=== PATIENT | male | born 1950 | race Caucasian/White ===

== ENCOUNTER → 2016-04-27 | Outpatient (CLI) | payer MEDICARE ==
[2016-04-27 09:14] LABS: Appearance,Urine Clear (Clear); Bilirubin,Urine Negative (Negative); Glucose,Urine (UA) Negative (Negative); Ketones,Urine Negative (Negative); Leukocyte Esterase,Urine Negative (Negative); Nitrite,Urine Negative (Negative); PH, Urine 5.5 (5.0-8.0); Protein,Urine Trace (Negative); Specific Gravity,Urine 1.015 (1.001-1.035); UA Billing (MACRO vs. MICRO) CHEM; Urobilinogen,Urine <2.0 mg/dL (<2.0)
[2016-04-27 09:15] LABS: CH 30.1; HCT 45.2 % (39.0-53.0); HDW 2.67; HGB 14.7 gm/dL (13.0-17.5); MCH 29.7 pg (25.0-35.0); MCHC 32.5 g/dL (31.0-37.0); MCV 91.6 fL (80.0-100.0); RBC 4.94 m/uL (4.30-5.90); RDW 13.1 % (11.5-15.5); WBC 5.6 k/uL (3.8-10.6)
[2016-04-27 11:12] LABS: Anion Gap 12 mmol/L; Blood Urea Nitrogen 20 mg/dL (9-20); Calcium 8.9 mg/dL (8.4-10.2); Carbon Dioxide 24 mmol/L (22-30); Chloride 107 mmol/L (98-107); Cholesterol 138 mg/dL (<200); Glucose 85 mg/dL (74-99); HDL Cholesterol 52 mg/dL (40-60); Iron 43 ug/dL (49-181); Non-African American GFR(MDRD) 55 (>60 ml/min/1.73 sqM); Phosphorous 2.2 mg/dL (2.5-4.5); Potassium 4.3 mmol/L (3.5-5.1); Sodium 143 mmol/L (137-145); Triglycerides 87 mg/dL (<150)
[2016-04-27 11:21] LABS: % Iron Saturation 13.1 % (20-50); Total Iron Binding Capacity 329 ug/dL (261-462)
== END ==
LOC: LABWHC1 08:40
PROVIDERS: ATTEND Nurse Practitioner Family
DX: N18.3 Chronic kidney disease, stage 3 (moderate) (principal); D64.9 Anemia, unspecified; N39.0 Urinary tract infection, site not specified; E55.9 Vitamin D deficiency, unspecified; E21.3 Hyperparathyroidism, unspecified
CPT/HCPCS: 36415; 80048; 80061; 81003; 82306; 82728; 83540; 83550; 83735; 83970; 84100; 85027

== ENCOUNTER 2016-08-17 08:03 | Day surgery (SDC) | payer MEDICARE ==
[2016-08-12 14:23] VITALS: BMI 25.8
[~2016-08-17 08:03] MED LIST: ALPRAZolam 0.25 MG TAB PO PRN; ASPIRIN 325 MG TAB PO ONE; ATORVASTATIN 80 MG TAB PO STA; SODIUM CHLORIDE 0.9% 1,000 ML IV SCH; SODIUM CHLORIDE 0.9% 1,000 ML in EMPTY BAG 1 BAG IV ONE
[2016-08-17 08:30] VITALS: PULSE 70; TEMP 97.5
[2016-08-17] MEDS ORDERED: diphenhydrAMINE 50 MG/ML 1 ML VIAL IVP ONE (10:00)
[2016-08-17] MEDS ORDERED: MIDAZOLAM 2 MG/2 ML VIAL IVP ONE (10:00)
[2016-08-17] MEDS ORDERED: LIDOCAINE 2% INJ 20 MG/ML SQ ONE (10:03)
[2016-08-17] MEDS: VERAPAMIL SYRINGE (5 MG/10 ML) INTRAARTER ONE ×2 (10:04→10:21)
[2016-08-17] MEDS ORDERED: HEPARIN SODIUM 1,000 UNIT/ML VIAL IV ONE (10:06)
[2016-08-17] MEDS ORDERED: IODIXANOL 320 MG/ML 100 ML INTRAARTER ONE (10:21)
[2016-08-17] MEDS ORDERED: RX INFO: IV CONTRAST WAS GIVEN 1 EACH MISC MISCELLANE PRN (10:36)
[2016-08-17] MEDS ORDERED: SODIUM CHLORIDE 0.9% 1,000 ML IV SCH (10:45)
[2016-08-17 11:48] VITALS: RESP 18
[2016-08-17 18:53] VITALS: BP 134/70
--- NOTE | 2016-08-19 21:33 | PCN ---
DATE OF SERVICE: 08/17/2016 CARDIAC CATHETERIZATION PROCEDURE: Left heart catheterization, coronary angiography. PERFORMED BY: Dr. Heaven Huber CLINICAL INFORMATION: Mr. Fitzpatrick is a 65-year-old gentleman with a history of hypertension, hyperlipidemia who has been having symptoms strongly suggestive of unstable angina. He was initiated on a beta nicholas, aspirin, and he was already on statins. He was brought in for the procedure electively. He had chronic kidney disease with creatinine of nearly 1.6. He was adequately hydrated orally and also with IV here and brought in for the procedure. I explained to him that I may not perform intervention if I need to give him a lot of contrast in one setting. PROCEDURE NOTE: Under local anesthesia and strict aseptic precautions, a 6 British introducer was placed in the right radial artery. Using an Ultimate I catheter, I performed selective coronary angiography, and a pigtail catheter was used to check LV pressures, but I did not perform LV gram. A total of 45 mL of contrast was used. Patient tolerated the procedure well. The sheath was taken out and TR band applied as per protocol, with good hemostasis. The saturation in the fingers of the right hand was 99%. Patient tolerated the procedure well without complications. CARDIAC CATHETERIZATION FINDINGS The left ventricular end-diastolic pressure was 16 mmHg without any gradient across the aortic valve. CORONARY ANGIOGRAPHY FINDINGS RIGHT CORONARY ARTERY: Dominant vessel, has minor irregularities, mild calcification. Distally bifurcates into a large PDA and PLV, both of which supply a sizeable amount of myocardium. There is no significant disease in the dominant RCA, which has mild calcification and 30% to 35% narrowing. LEFT MAIN CORONARY ARTERY: This is a short, patent, disease-free vessel that immediately bifurcates into LAD and circumflex. LEFT ANTERIOR DESCENDING CORONARY ARTERY: Good-caliber vessel. Gives off a first diagonal branch that has a 70% stenosis at the origin. Fair-caliber vessel. Then there is a tortuosity. Gives off a septal branch and a straighter segment, and from the straighter segment a second diagonal comes off which is free of significant disease. After the second diagonal there is a 95% stenosis and then the caliber of the vessel improves. There is a third diagonal and then the vessel extends all the way to the apex. The mid LAD therefore has a 95% calcified stenosis located after a very tortuous segment. There is significant calcification proximal and at the lesion as well. The calcification appears to be moderate to severe. The first diagonal branch has 70% stenosis. Second diagonal and third diagonal are free of significant disease. LEFT POSTERIOR CIRCUMFLEX CORONARY ARTERY: Technically a non-dominant vessel. Gives off a single obtuse marginal branch and a high obtuse marginal branch, both of which have minor irregularities, and there is a small vessel that runs in the AV groove. No significant disease is noted in the circumflex system, which is small in caliber with mild diffuse disease and non-dominant. LEFT VENTRICULOGRAM: This was not performed. FINAL IMPRESSION: This patient has a right-dominant system, heavily calcified, extremely tortuous LAD with a mid lesion of the 95%. Circumflex is small, non- dominant, free of significant disease, and LV and diastolic pressures are acceptable. There was no gradient across the aortic valve. RECOMMENDATION: I am recommending elective intervention of the mid LAD. I will perform an orbital atherectomy and stenting. Rationale, risks, benefits and options were carefully explained to the patient and his . He will be discharged today after adequate hydration, and I will perform this procedure in the next 48 hours from the right femoral approach. Higher risk was quoted, given the fact that there is tortuosity and calcification. Patient and family understand this and wish to proceed with the procedure, which will be performed in the next 48 hours after checking BUN and creatinine. Moderate conscious sedation was provided for a total duration of 20 minutes. Patient was monitored closely. Oxygen saturation was good. He received Versed and Benadryl. The patient tolerated the procedure well, without complications. SANDY
--- NOTE | 2016-08-19 21:40 | MISC ---
LETTER TO DR. ROONEY RE: Emmanuel Fitzpatrick (1950) Dear Dr. Rooney, Thank you for the opportunity to participate in the care of Mr. Emmanuel Fitzpatrick. Please find enclosed my detailed cardiac catheterization report for your records. He has a 95% mid LAD which will be intervened in an elective fashion with orbital atherectomy and stenting in the next couple of days. Rationale, risks, benefits and options were explained to the patient. Thank you for your referral. Please call with questions. Sincerely, Heaven Huber M.D. SANDY
== END 2016-08-17 18:30 | disposition home or self-care (01) ==
LOC: CATHCVL 08:03
PROVIDERS: ATTEND Internal Medicine Interventional Cardiology
DX: I25.110 Atherosclerotic heart disease of native coronary artery with unstable angina pectoris (principal); I25.84 Coronary atherosclerosis due to calcified coronary lesion; I12.9 Hypertensive chronic kidney disease with stage 1 through stage 4 chronic kidney disease, or unspecified chronic kidney disease; N18.9 Chronic kidney disease, unspecified; E78.00 Pure hypercholesterolemia, unspecified; G89.29 Other chronic pain; M54.5 Low back pain; Z79.82 Long term (current) use of aspirin; Z79.899 Other long term (current) drug therapy; Z87.891 Personal history of nicotine dependence
CPT/HCPCS: 93458; 99152; C1769 ×2; C1894; J2001; J2250; J1200; Q9967; J1644

== ENCOUNTER 2016-08-19 07:04 | Inpatient (IN) | payer MEDICARE ==
[~2016-08-19 07:04] MED LIST changes: +ALPRAZolam 0.5 MG TAB PO PRN; -ASPIRIN 325 MG TAB PO ONE; +ASPIRIN 325 MG TAB PO STA; +NITROGLYCERIN SL TABS 0.4 MG TAB SUBLINGUAL PRN; -SODIUM CHLORIDE 0.9% 1,000 ML IV SCH; -SODIUM CHLORIDE 0.9% 1,000 ML in EMPTY BAG 1 BAG IV ONE
[2016-08-19 07:46] LABS: Basophils % (A) 1 %; CH 30.3; CHCM 34.5; Eosinophils # (A) 0.2 k/uL (0-0.7); Eosinophils % (A) 2 %; HCT 45.3 % (39.0-53.0); HDW 2.63; HGB 15.9 gm/dL (13.0-17.5); Luc # (Auto) 0.31; Luc % (Auto) 4; Lymphocytes # (A) 1.4 k/uL (1.0-4.8); Lymphocytes % (A) 19 %; MCH 30.8 pg (25.0-35.0); MCV 88.1 fL (80.0-100.0); Mean Platelet Volume 7.9; Monocytes # (A) 0.5 k/uL (0-1.0); Monocytes % (A) 6 %; Neutrophils # (A) 5.1 k/uL (1.3-7.7); Neutrophils % (A) 68 %; RBC 5.14 m/uL (4.30-5.90); RDW 13.5 % (11.5-15.5); WBC 7.4 k/uL (3.8-10.6); WBC (Perox) 7.44
[2016-08-19 07:56] LABS: Anion Gap 11 mmol/L; Blood Urea Nitrogen 27 mg/dL (9-20); Calcium 9.2 mg/dL (8.4-10.2); Carbon Dioxide 27 mmol/L (22-30); Chloride 106 mmol/L (98-107); Glucose 88 mg/dL (74-99); Non-African American GFR(MDRD) 53 (>60 ml/min/1.73 sqM); Potassium 3.9 mmol/L (3.5-5.1); Sodium 144 mmol/L (137-145)
[2016-08-19] MEDS ORDERED: SODIUM CHLORIDE 0.9% 1,000 ML in EMPTY BAG 1 BAG IV ONE (08:30)
[2016-08-19] MEDS ORDERED: MIDAZOLAM 2 MG/2 ML VIAL ONE (13:02)
[2016-08-19] MEDS ORDERED: diphenhydrAMINE 50 MG/ML 1 ML VIAL ONE (13:02)
[2016-08-19] MEDS ORDERED: LIDOCAINE 2% INJ 20 MG/ML (20 ML MDV) ONE ×2 (13:09→15:27)
[2016-08-19] MEDS ORDERED: diphenhydrAMINE 50 MG/ML 1 ML VIAL IVP ONE (13:10)
[2016-08-19] MEDS: MIDAZOLAM 2 MG/2 ML VIAL IV ONE ×2 (13:10→13:23)
[2016-08-19] MEDS ORDERED: LIDOCAINE 2% INJ 20 MG/ML SQ ONE ×2 (13:15→15:32)
[2016-08-19] MEDS ORDERED: BIVALIRUDIN BOLUS 250 MG/50 ML IV ONE (13:35)
[2016-08-19] MEDS ORDERED: BIVALIRUDIN 250 MG in SODIUM CHLORIDE 0.9% 50 ML IV ONE ×3 (13:35→15:44)
[2016-08-19] MEDS ORDERED: SODIUM CHLORIDE 0.9% 1,000 ML IV ONE (13:46)
[2016-08-19] MEDS ORDERED: HYDROmorphone 2 MG/ML 1 ML SYRINGE ONE (13:56)
[2016-08-19] MEDS: HYDROmorphone 2 MG/ML 1 ML SYRINGE IV ONE ×3 (13:58→15:28)
[2016-08-19] MEDS: NITROGLYCERIN 1000MCG/10ML SYRINGE INTRACORON ONE ×3 (14:14→14:45)
[2016-08-19] MEDS ORDERED: CLOPIDOGREL 75 MG TAB ONE ×2 (15:00)
[2016-08-19] MEDS ORDERED: CLOPIDOGREL 75 MG TAB PO ONE (15:03)
[2016-08-19] MEDS ORDERED: NITROGLYCERIN SL TABS 0.4 MG TAB SUBLINGUAL PRN (15:06)
[2016-08-19] MEDS ORDERED: MAG HYDROX/AL HYDROX/SIMETH 30 ML CUP PO PRN (15:06)
[2016-08-19] MEDS ORDERED: RX INFO: IV CONTRAST WAS GIVEN 1 EACH MISC MISCELLANE PRN (15:06)
[2016-08-19] MEDS ORDERED: ATROPINE SULFATE 0.1 MG/ML 10ML SYRINGE IV PRN (15:06)
[2016-08-19] MEDS ORDERED: IODIXANOL 320 MG/ML 100 ML INTRAARTER ONE ×2 (15:08→16:16)
[2016-08-19] MEDS ORDERED: NITROGLYCERIN 1000MCG/10ML SYRINGE INTRACORON ONE (16:04)
[2016-08-19] MEDS ORDERED: NITROGLYCERIN-D5W PMX 50 MG in DEXTROSE/WATER 1 250ML.BAG IV ONE (16:24)
[2016-08-19 16:42] LABS: Glucose,Whole Blood 107 mg/dL (75-99)
--- NOTE | 2016-08-19 16:45 | P.PCN ---
Date of Procedure: 08/19/16 Preoperative Diagnosis: Stable angina, hypertension, hypercholesterolemia, chronic kidney disease stageII Postoperative Diagnosis: Same Procedure(s) Performed: #1 transvenous temporary pacemaker #2 orbital atherectomy of mid left anterior descending coronary artery #3 PTCA and stenting of mid LAD Leomann highly calcified tortuous complex disease Implants: Anesthesia: other (Moderate conscious sedation was provided with Dilaudid, Versed, Benadryl for a total duration of 1 hour 45 minutes) Indications for Procedure: Operative Findings: Description of Procedure: This gentleman was seen by me recently in the office in about 48 hours ago I performed a coronary angiography from the right radial approach using the least amount of contrast because of his chronic kidney disease and noted that he had a heavily calcified tortuous LAD with a 99% stenosis. I brought in this patient and electively today off her hydrating him orally and checking the creatinine to be same or better than baseline. I explained to the patient and his that this would be a high-risk procedure involving a very calcified tortuous artery and vein were prepared for this. Procedure note: From the right femoral approach under strict aseptic precautions and local anesthesia a 6-Kosovan introducer was placed in the right femoral vein and another 6-Kosovan introducer in the right femoral artery. A transvenous temporary pacemaker was positioned in the right ventricular apex. Threshold was 0.3 mV. This pacemaker was kept as a standby during orbital atherectomy. From the right femoral arterial approach I advanced a 3.5, XB LAD guide catheter to cannulate the left coronary artery. I used initially if this provided to cross the total occlusion in the LAD and this wire ended up in the diagonal branch distally. There was extreme tortuosity and I could not advance the wire into the main LAD. I used a 2.0 track balloon and I exchanged the long wire using this balloon for a Viper wire I then performed orbital atherectomy and did about 4 passes. Patient had chest pain and ST elevation during and after the process. The vessel was transiently totally occluded. I then exchanged the existing Viper wire with the same 2.0 balloon and left a BMW wire distally. Over this wire I advanced the 2.0 balloon and dilated the area of total occlusion with significant improvement and relief of pain. I tried to advance a 15 mm long 2.75 stent but I had considerable difficulty. I then used another whisper wire alongside and this wire was kept in the LAD distally. Using the double wire system I was able to deploy 8 mm long 2.75 caliber Xience stent distally and another 2.75 caliber 8 mm long Xience stent proximally. Good angiographic result was achieved. Patient had resolution of ST segment changes in the anterior leads but 1 and aVL lead continued to show ST elevation suggesting some thrombus may have gone into the diagonal branch that was located just before the diseased segment in the LAD I tried to advance a wire into the diagonal but I had difficulty. I therefore decided to abandon the procedure and accept the diagonal occlusion and went and explained to the patient that if he has more chest pain I would consider intervention. The proximal portion of the stented segment had a hazy area and I had some concern in this regard. Patient was on the table I went and spoke to the family and then he had chest pain and more ST elevation and therefore I went ahead now from the left groin. I had already taken out of the temporary pacemaker in place an Angio-Seal to secure hemostasis in the right groin. I therefore restarted the procedure and from the left femoral approach a 6-Kosovan introducer was placed under strict aseptic precautions and local anesthesia. This time I used a VODA Left 3.5 guide catheter to cannulate the left coronary artery I tried a 4.0 LAD XB without success. The Voda catheter I was able to get ago despite guide support. If this provider was advance the lesion which was total occlusion of the LAD at the site of stenting was crossed wire was kept in the diagonal branch. I then advanced another wire and positioned as this also in the diagonal branch. I made a decision not to pursue dilatation of the diagonal branch that came off just before the stented segment and this diagonal was about 1.5 mm caliber. I made some attempts to advance a wire into this but I decided not to pursue this any more. I advanced and positioned a 2.75 caliber 8 mm Promus stent proximal to the Xience stent that was placed and this stent was placed astride the diagonal branch which was jailed. Excellent angiographic result was achieved of the LAD but the diagonal had somewhat sluggish flow and ST segment elevation in lead 1 and aVL persisted but the ST segment elevation in leads V2 to V4 completely resolved and patient was free of any chest pain. Excellent result of the LAD was achieved the diagonal had somewhat sluggish flow with subtotal occlusion in the ostium. This was explained in great detail to the patient and family. He received 600 mg of Plavix and also Angiomax bolus and infusion as per protocol and the sheath was sutured and he was sent to the intensive care unit in a hemodynamically stable condition and completely free of chest pain Patient will be watched very closely in the ICU. I will pull the sheath in the morning and will consider an nitroglycerin drip through the night as well as a recheck of EKG in a.m. This note will go to his primary care physician
[2016-08-19] MEDS ORDERED: HYDROmorphone 1 MG/ML 1 ML SYRINGE ONE (17:31)
[2016-08-19] MEDS ORDERED: HYDROmorphone 1 MG/ML 1 ML SYRINGE IVP STA (17:36)
[2016-08-19 18:44] VITALS: BMI 24.7
[2016-08-19] MEDS ORDERED: DEXTROSE/WATER 1 500ML.BAG with HEPARIN SODIUM,PORCINE/D5W PMX 25,000 UNIT IV SCH (19:00)
[2016-08-19] MEDS: ATORVASTATIN 80 MG TAB PO SCH (21:37)
[2016-08-19] MEDS: METOPROLOL TARTRATE 12.5 MG TAB PO SCH (21:37)
[2016-08-19] MEDS: HYDROmorphone 1 MG/ML 1 ML SYRINGE IVP PRN (22:01)
[2016-08-19] MEDS: ZOLPIDEM 5 MG TAB PO PRN (22:57)
[2016-08-20 04:26] LABS: Basophils % (A) 0 %; CHCM 35.1; Eosinophils % (A) 0 %; HCT 40.8 % (39.0-53.0); HDW 2.61; HGB 14.2 gm/dL (13.0-17.5); Luc # (Auto) 0.28; Luc % (Auto) 2; Lymphocytes # (A) 0.9 k/uL (1.0-4.8); Lymphocytes % (A) 8 %; MCHC 34.9 g/dL (31.0-37.0); MCV 88.7 fL (80.0-100.0); Mean Platelet Volume 9.1; Monocytes # (A) 0.7 k/uL (0-1.0); Monocytes % (A) 6 %; Neutrophils # (A) 9.5 k/uL (1.3-7.7); Neutrophils % (A) 84 %; RDW 13.9 % (11.5-15.5); WBC 11.3 k/uL (3.8-10.6); WBC (Perox) 10.59
[2016-08-20 04:43] LABS: Anion Gap 11 mmol/L; Blood Urea Nitrogen 19 mg/dL (9-20); Carbon Dioxide 21 mmol/L (22-30); Chloride 108 mmol/L (98-107); Glucose 114 mg/dL (74-99); Non-African American GFR(MDRD) >60 (>60 ml/min/1.73 sqM); Potassium 4.3 mmol/L (3.5-5.1); Sodium 140 mmol/L (137-145)
[2016-08-20] MEDS ORDERED: ATROPINE SULFATE 0.1 MG/ML 10ML SYRINGE ONE (06:06)
[2016-08-20] MEDS: HYDROmorphone 1 MG/ML 1 ML SYRINGE IVP PRN (07:39)
[2016-08-20] MEDS: SODIUM CHLORIDE 0.9% 1,000 ML IV SCH ×2 (08:00→20:05)
[2016-08-20] MEDS: amLODIPine 5 MG TAB PO SCH (08:53)
[2016-08-20] MEDS: METOPROLOL TARTRATE 12.5 MG TAB PO SCH ×2 (08:53→20:05)
[2016-08-20] MEDS: CLOPIDOGREL 75 MG TAB PO SCH (08:53)
[2016-08-20] MEDS: ASPIRIN 81 MG CHEW PO SCH (08:53)
[2016-08-20] MEDS: LOSARTAN 25 MG TAB PO SCH (10:01)
--- NOTE | 2016-08-20 10:38 | ECHOF ---
Referral Reason:assess lv function anterior mi MEASUREMENTS -------- HEIGHT: 152.4 cm WEIGHT: 80.3 kg BP: 122/77 IVSd: 1.2 cm (0.6 - 1.1) LVIDd: 4.8 cm (3.9 - 5.3) LVPWd: 1.2 cm (0.6 - 1.1) IVSs: 1.5 cm LVIDs: 3.2 cm LVPWs: 1.4 cm Ao Diam: 4.1 cm (2.0 - 3.7) AV Cusp: 2.0 cm (1.5 - 2.6) LA Diam: 3.9 cm (2.7 - 3.8) MV EXCURSION: 24.642 mm (> 18.000) MV EF SLOPE: 116 mm/s (70 - 150) EPSS: 1.3 cm MV E Alban: 0.41 m/s MV DecT: 174 ms MV A Alban: 0.66 m/s MV E/A Ratio: 0.62 RAP: 5.00 mmHg RVSP: 13.38 mmHg FINDINGS -------- Sinus rhythm. This was a technically adequate study. There is borderline concentric left ventricular hypertrophy. Overall left ventricular systolic function is moderately impaired with, an EF between 35 - 40 %. Anterseptal Hypokinesis Lateral hypokinesis Septal Hypokinesis Molino Hypokinesis. The right ventricle is normal in size. Normal LA size by volume 22+/-6 ml/m2. The right atrial size is normal. There is mild aortic valve sclerosis. There is no evidence of aortic regurgitation. Mild mitral regurgitation is present. Mild tricuspid regurgitation present. There is no evidence of pulmonary hypertension. The right ventricular systolic pressure, as measured by Doppler, is 13.38mmHg. There is no pulmonic regurgitation present. CONCLUSIONS -------- 1. There is borderline concentric left ventricular hypertrophy. 2. There is no evidence of pulmonary hypertension. 3. The right ventricular systolic pressure, as measured by Doppler, is 13.38mmHg. 4. There is no pulmonic regurgitation present. 5. Overall left ventricular systolic function is moderately impaired with, an EF between 35 - 40 %. 6. Anterseptal Hypokinesis 7. Lateral hypokinesis 8. Septal Hypokinesis 9. Molino Hypokinesis. 10. There is mild aortic valve sclerosis. 11. Mild mitral regurgitation is present. 12. Mild tricuspid regurgitation present. RETAIL SUPPORT SPECIALIST: Rebecca Solano RDCS
[2016-08-20] MEDS ORDERED: BISACODYL 5 MG TABLET.DR PO PRN (13:16)
[2016-08-20] MEDS: DOCUSATE 100 MG CAP PO PRN (14:00)
[2016-08-20] MEDS: ATORVASTATIN 80 MG TAB PO SCH (20:05)
[2016-08-20] MEDS: ZOLPIDEM 5 MG TAB PO PRN (20:07)
[2016-08-21 08:15] LABS: Anion Gap 8 mmol/L; Blood Urea Nitrogen 18 mg/dL (9-20); Calcium 9.2 mg/dL (8.4-10.2); Carbon Dioxide 23 mmol/L (22-30); Chloride 109 mmol/L (98-107); Glucose 97 mg/dL (74-99); Non-African American GFR(MDRD) >60 (>60 ml/min/1.73 sqM); Potassium 4.2 mmol/L (3.5-5.1); Sodium 140 mmol/L (137-145)
[2016-08-21] MEDS: METOPROLOL TARTRATE 12.5 MG TAB PO SCH ×2 (09:16→21:14)
[2016-08-21] MEDS: DOCUSATE 100 MG CAP PO PRN (09:16)
[2016-08-21] MEDS: CLOPIDOGREL 75 MG TAB PO SCH (09:17)
[2016-08-21] MEDS: ASPIRIN 81 MG CHEW PO SCH (09:17)
--- NOTE | 2016-08-21 10:02 | P.PN ---
Subjective Principal diagnosis: Coronary artery disease, status post stent placement This patient came to have stent placement of the LAD. Patient apparently had issues with total closure, and requiring restenting of the LAD. Patient has been in ICU since the procedure. The sheath was removed yesterday. Today he is feeling better. His lab values showed elevated troponin values. Echo cardiogram showed wall motion abnormalities seen to involve the anterolateral, apical and lateral taylor. Ejection fraction is estimated is 35-40%. Patient is being transferred to telemetry unit. If patient is stable will be discharged home tomorrow. Vital signs are otherwise stable Objective - Vital Signs Vital signs: Vital Signs Temp 98.3 F 08/21/16 08:00 Pulse 83 08/21/16 08:00 Resp 14 08/21/16 08:00 BP 110/70 08/21/16 08:00 Pulse Ox 100 08/21/16 08:00 Intake & Output 08/20/16 08/21/16 08/21/16 18:59 06:59 18:59 Intake Total 1390 600 300 Output Total 700 600 Balance 690 0 300 Weight 79 kg Intake: IV 850 600 Sodium Chloride 0.9% 1, 850 600 000 ml In Empty Bag 1 bag @ 100 mls/hr IV .Q10H ONE Rx#:[id number] Oral 540 300 Output: Urine 700 600 Other: Voiding Method Urinal Urinal Urinal # Voids 1 0 ABP, PAP, CO, CI - Last Documented Arterial Blood Pressure 148/71 - Exam GENERAL EXAM: Patient is alert and oriented and doesn't appear to be in any acute distress HEENT: Normocephalic. Normal reaction of pupils, equal size, normal range of extraocular motion. No erythema or exudates in the throat. NECK: No masses, no nuchal rigidity. CHEST: No chest wall deformity. LUNGS: Equal air entry with no crackles or wheeze. HEART: S1 and S2 normal with no audible mumurs or gallops. Regular rhythm, femorals equal on both sides.. ABDOMEN: No hepatosplenomegaly, normal bowel sounds, no guarding or rigidity. SKIN: No rashes CENTRAL NERVOUS SYSTEM: No focal deficits. EXTREMITIES: No cyanosis, clubbing or edema. - Labs CBC & Chem 7: 08/20/16 04:15 08/21/16 07:36 Labs: Abnormal Lab Results - Last 24 Hours (Table) 08/20/16 08/20/16 08/21/16 Range/Units 11:12 18:14 07:36 Chloride 109 H (98-107) mmol/L Troponin I 27.700 H* 19.500 H* (0.000-0.034) ng/mL Assessment and Plan (1) Status post coronary artery stent placement Status: Acute (2) CAD (coronary artery disease) Status: Acute (3) Hypertension Status: Acute Plan: Patient is clinically stable. It appears that patient had ischemic injury in the LAD distribution and echo Cardigan showed hypokinesis of the anteroapical segments and lateral wall. Patient is clinically feeling better today. Hopefully, the hypokinesis of the anterolateral could be transient. Patient's activities to be increased. If stable he'll be discharged home tomorrow
[2016-08-21] MEDS: LOSARTAN 25 MG TAB PO SCH (10:20)
[2016-08-21] MEDS: amLODIPine 5 MG TAB PO SCH ×2 (10:40→21:14)
[2016-08-21] MEDS: ATORVASTATIN 80 MG TAB PO SCH (21:13)
[2016-08-22] MEDS: CLOPIDOGREL 75 MG TAB PO SCH (07:41)
[2016-08-22] MEDS: ASPIRIN 81 MG CHEW PO SCH (07:41)
[2016-08-22] MEDS: LOSARTAN 25 MG TAB PO SCH (07:41)
[2016-08-22] MEDS: METOPROLOL TARTRATE 12.5 MG TAB PO SCH (07:41)
[2016-08-22 07:49] VITALS: BP 109/66; PULSE 72; RESP 16; TEMP 97
--- NOTE | 2016-08-22 08:13 | P.DS ---
Providers Date of admission: 08/19/16 14:58 Expected date of discharge: 08/22/16 Attending physician: Felix Huber Consults: 08/19/16 15:06 Consult Physician Routine Consulting Provider: [facility] Consult Reason/Comments: Post Interventional patient Do you want consulting provider notified?: Already Contacted Primary care physician: Stated None Hospital Course: Procedures performed: Transvenous temporary pacemaker placement from the right femoral approach, orbital atherectomy off mid LAD heavily calcified lesion, stenting of mid LAD. Luting stent site used. Approach I performed a repeat angiography and then deployed a additional stent proximal to the previous stents. This procedure was performed immediately after the initial procedure before he was taken off the table This gentleman was brought in for the procedure electively. He has unstable angina and had a prior cardiac cath which revealed a heavily calcified lesion in mid LAD with extreme tortuosity. He has noncritical disease in other vessels. He was brought in for the procedure electively to perform a orbital atherectomy. This procedure was performed on the . Procedure was complicated by a periprocedural myocardial infarction however eventual result was excellent. 2 stents were deployed initially and after that before he could be taken off the table he had chest pain and ST elevation and an additional stent was then deployed proximally. All 3 were drug-eluting stents. Postprocedure course was uneventful. There is a elevation of troponin of up to 28 noted suggestive periprocedural myocardial infarction with some wall motion abnormality and ejection fraction of 40% on echocardiogram. These events were explained in great detail to the patient and family. At the time of discharge he is ambulating without symptoms hand that his EKG suggests the anterior non- ST elevation IA. Discharge medications were reviewed with the patient and his . Instructions regarding activity diet and medications and appointment with me on August 26 at 8:45 AM that also explained and discussed. Physical examination today revealed a blood pressure of 118/70 pulse rate is about 64/m S1 and S2 are heard normally short systolic murmur at left sternal border lungs were clear abdomen is soft and nontender both groins are clean and dry with good pulses Central nervous system is normal. Patient had a mildly elevated creatinine when he came in but yesterday his creatinine was 1.1 which was an improvement. He will be discharged today and I will see him in the office on August 26. Plan - Discharge Summary New Discharge Prescriptions: New Aspirin 81 mg PO DAILY #90 Calcitriol [Rocaltrol] 0.25 mcg PO [place] cap Clopidogrel [Plavix] 75 mg PO DAILY #90 tab Losartan [Cozaar] 25 mg PO DAILY #90 tab Nitroglycerin Sl Tabs [Nitrostat] 0.4 mg SUBLINGUAL Q5M PRN #25 tab PRN Reason: Chest Pain Nitroglycerin Sl Tabs [Nitrostat] 0.4 mg SUBLINGUAL Q5M PRN tab PRN Reason: Chest Pain Continue Atorvastatin [Lipitor] 80 mg PO DAILY Turmeric Root Extract [Turmeric] 500 mg PO DAILY Aspirin 81 mg PO DAILY Metoprolol Tartrate [Lopressor] 12.5 mg PO BID Changed amLODIPine [Norvasc] 2.5 mg PO DAILY #0 Discontinued Calcitriol [Rocaltrol] 0.25 mcg PO [place] Discharge Medication List Atorvastatin [Lipitor] 80 mg PO DAILY 05/17/16 [History] Turmeric Root Extract [Turmeric] 500 mg PO DAILY 05/17/16 [History] Aspirin 81 mg PO DAILY 08/12/16 [History] Metoprolol Tartrate [Lopressor] 12.5 mg PO BID 08/19/16 [History] Aspirin 81 mg PO DAILY #90 08/22/16 [Rx] Calcitriol [Rocaltrol] 0.25 mcg PO [place] cap 08/22/16 [Rx] Clopidogrel [Plavix] 75 mg PO DAILY #90 tab 08/22/16 [Rx] Losartan [Cozaar] 25 mg PO DAILY #90 tab 08/22/16 [Rx] Nitroglycerin Sl Tabs [Nitrostat] 0.4 mg SUBLINGUAL Q5M PRN tab 08/22/16 [Rx] Nitroglycerin Sl Tabs [Nitrostat] 0.4 mg SUBLINGUAL Q5M PRN #25 tab 08/22/16 [Rx ] amLODIPine [Norvasc] 2.5 mg PO DAILY #0 08/22/16 [Rx] Follow up Appointment(s)/Referral(s): Felix Huber MD [STAFF PHYSICIAN] - 08/26/16 8:45 am Patient Instructions/Handouts: Coronary Artery Disease (DC), Cardiac Rehabilitation (DC), Heart Catheterization (DC), After Radial Heart Catheterization (GEN)
[2016-08-22] MEDS ORDERED: CALCITRIOL 0.25 MCG CAP PO SCH (09:00)
--- NOTE | 2016-08-22 11:46 | PN ---
This is a 65 year old gentleman who was brought in for elective complex PCI of LAD that was complicated by very procedural infarct yesterday with a transient occlusion of LAD and then subtotal occlusion of a very small diagonal branch. Post procedure, he was hemodynamically stable, had a transient episode of chest pain yesterday but this morning, EKG anteriorly it looked normal but there are some ST elevations in the inferior leads. He is hemodynamically stable with blood pressure 130/80. Pulse rate is about 70 per minute. He is resting comfortably, has no chest pain, complains of back pain since he is on his back. His sheath has been pulled this morning. I am recommending that we keep the FEMSTOP until 9:15 and then we can increase activity after that. I will obtain echocardiogram, add a very small dose of Losartan. His BUN and creatinine is good. His troponin is elevated consistent with periprocedural [place]. Physical examination revealed no JVD. S1, S2 heard normally. Lungs are clear. Abdomen is soft, nontender. Right groin is clean and dry. Left groin has a FEMSTOP on. Lower extremities revealed palpable pulses. Central nervous system is normal. I am recommending that we continue current medications with the addition of Losartan, check echocardiogram and after 9:15 have him sit up in the chair. Prognosis remains guarded. I will reevaluate him and make further recommendations later on today and I discussed my thoughts in detail with the patient and his . SANDY
== END 2016-08-22 09:14 | disposition home or self-care (01) | DRG 246 ==
LOC: CATHCVL 07:04 → 6ICU 14:58 → 6SEL 08-21 11:30
PROVIDERS: ADMIT Internal Medicine Interventional Cardiology; ATTEND Internal Medicine Interventional Cardiology
PROC: X2C0361 Extirpation of Matter from Coronary Artery, One Artery using Orbital Atherectomy Technology, Percutaneous Approach, New Technology Group 1 (ICD-10-PCS; 2016-08-19)
PROC: 027035Z Dilation of Coronary Artery, One Artery with Two Drug-eluting Intraluminal Devices, Percutaneous Approach (ICD-10-PCS; principal; 2016-08-19 12:30)
DX: I25.110 Atherosclerotic heart disease of native coronary artery with unstable angina pectoris (principal); I21.3 ST elevation (STEMI) myocardial infarction of unspecified site; I97.88 Other intraoperative complications of the circulatory system, not elsewhere classified; I12.9 Hypertensive chronic kidney disease with stage 1 through stage 4 chronic kidney disease, or unspecified chronic kidney disease; E78.00 Pure hypercholesterolemia, unspecified; R01.1 Cardiac murmur, unspecified; N18.2 Chronic kidney disease, stage 2 (mild); G89.29 Other chronic pain; M54.5 Low back pain; M51.37 Other intervertebral disc degeneration, lumbosacral region; Z79.82 Long term (current) use of aspirin; Z79.899 Other long term (current) drug therapy; Z87.891 Personal history of nicotine dependence; Y83.8 Other surgical procedures as the cause of abnormal reaction of the patient, or of later complication, without mention of misadventure at the time of the procedure; Y92.239 Unspecified place in hospital as the place of occurrence of the external cause
CPT/HCPCS: 80048; 84484; 85025; 85730; 93306

== ENCOUNTER → 2016-09-16 | Outpatient (CLI) | payer MEDICARE ==
[2016-09-16 11:16] LABS: CH 30.4; HCT 42.3 % (39.0-53.0); HDW 2.79; HGB 14.7 gm/dL (13.0-17.5); MCH 31.2 pg (25.0-35.0); MCHC 34.8 g/dL (31.0-37.0); MCV 89.8 fL (80.0-100.0); Mean Platelet Volume 8.2; RBC 4.71 m/uL (4.30-5.90); RDW 13.4 % (11.5-15.5); WBC 5.9 k/uL (3.8-10.6)
[2016-09-16 11:26] LABS: Calcium 9.5 mg/dL (8.4-10.2); Potassium 4.6 mmol/L (3.5-5.1)
== END | disposition home or self-care (01) ==
LOC: LABWHC1 10:11
PROVIDERS: ATTEND Internal Medicine Interventional Cardiology
DX: I25.10 Atherosclerotic heart disease of native coronary artery without angina pectoris (principal); I10 Essential (primary) hypertension
CPT/HCPCS: 36415; 80048; 85027

== ENCOUNTER → 2016-10-26 | Outpatient (CLI) | payer MEDICARE ==
[2016-10-26 09:46] LABS: CH 30.7; HCT 46.6 % (39.0-53.0); HDW 2.73; MCHC 34.2 g/dL (31.0-37.0); MCV 90.8 fL (80.0-100.0); Mean Platelet Volume 8.9; RBC 5.14 m/uL (4.30-5.90); RDW 13.1 % (11.5-15.5); WBC 5.6 k/uL (3.8-10.6)
[2016-10-26 09:50] LABS: Appearance,Urine Clear (Clear); Bilirubin,Urine Negative (Negative); Glucose,Urine (UA) Negative (Negative); Ketones,Urine Negative (Negative); Leukocyte Esterase,Urine Negative (Negative); Nitrite,Urine Negative (Negative); Protein,Urine Negative (Negative); Specific Gravity,Urine 1.015 (1.001-1.035); UA Billing (MACRO vs. MICRO) CHEM; Urobilinogen,Urine <2.0 mg/dL (<2.0)
[2016-10-26 10:32] LABS: Anion Gap 9 mmol/L; Blood Urea Nitrogen 26 mg/dL (9-20); Calcium 9.6 mg/dL (8.4-10.2); Carbon Dioxide 28 mmol/L (22-30); Chloride 105 mmol/L (98-107); Cholesterol 166 mg/dL (<200); Glucose 89 mg/dL (74-99); HDL Cholesterol 48 mg/dL (40-60); Iron 80 ug/dL (49-181); Non-African American GFR(MDRD) 51 (>60 ml/min/1.73 sqM); Potassium 4.4 mmol/L (3.5-5.1); Sodium 142 mmol/L (137-145)
[2016-10-26 10:41] LABS: % Iron Saturation 31.6 % (20-50); Total Iron Binding Capacity 253 ug/dL (261-462)
== END | disposition home or self-care (01) ==
LOC: LABWHC1 08:55
PROVIDERS: ATTEND Nurse Practitioner Family
DX: N18.3 Chronic kidney disease, stage 3 (moderate) (principal); D64.9 Anemia, unspecified; N39.0 Urinary tract infection, site not specified; E55.9 Vitamin D deficiency, unspecified; E21.3 Hyperparathyroidism, unspecified; E78.6 Lipoprotein deficiency
CPT/HCPCS: 36415; 80048; 80061; 81003; 82306; 82728; 83540; 83550; 83735; 83970; 84100; 85027

== ENCOUNTER 2016-11-13 02:47 | Inpatient (IN) | payer MEDICARE ==
[2016-11-13] MEDS ORDERED: ASPIRIN 81 MG PO STA (03:04)
[2016-11-13] MEDS ORDERED: NITROGLYCERIN SL TABS 0.4 MG TAB SUBLINGUAL STA (03:04)
--- NOTE | 2016-11-13 03:08 | ED ---
Chest Pain HPI - General Chief Complaint: Chest Pain Stated Complaint: Chest Pain Time Seen by Provider: 11/13/16 02:55 Source: patient Mode of arrival: ambulatory Limitations: no limitations - History of Present Illness Initial Comments: This patient is 65-year-old man who states that around 1 this morning he he had the onset of substernal chest pain that he is describing as heavy feeling, made worse if he takes a deep breath. MD Complaint: chest pain Onset/Timin -: hour(s) Onset: during rest Pain Location: substernal Pain Radiation: none Severity: moderate Quality: heaviness Consistency: constant Improves With: nothing Worsens With: inspiration Treatments Prior to Arrival: none - Related Data Home Medications Medication Instructions Recorded Confirmed Atorvastatin [Lipitor] 80 mg PO DAILY 05/17/16 08/19/16 Turmeric Root Extract [Turmeric] 500 mg PO DAILY 05/17/16 08/19/16 Metoprolol Tartrate [Lopressor] 12.5 mg PO BID 08/19/16 08/19/16 Previous Rx's Medication Instructions Recorded Aspirin 81 mg PO DAILY #90 08/22/16 Calcitriol [Rocaltrol] 0.25 mcg PO KILGORE cap 08/22/16 Clopidogrel [Plavix] 75 mg PO DAILY #90 tab 08/22/16 Nitroglycerin Sl Tabs [Nitrostat] 0.4 mg SUBLINGUAL Q5M PRN tab 08/22/16 amLODIPine [Norvasc] 2.5 mg PO DAILY #0 08/22/16 Allergies Allergy/AdvReac Type Severity Reaction Status Date / Time No Known Allergies Allergy Verified 08/19/16 07:16 Review of Systems ROS Statement: Those systems with pertinent positive or pertinent negative responses have been documented in the HPI. ROS Other: All systems not noted in ROS Statement are negative. Constitutional: Denies: fever, chills Respiratory: Denies: cough, dyspnea Cardiovascular: Reports: chest pain. Denies: palpitations, orthopnea, edema, syncope Gastrointestinal: Denies: abdominal pain, vomiting, diarrhea Genitourinary: Denies: dysuria, hematuria Musculoskeletal: Denies: back pain Skin: Denies: rash Neurological: Denies: headache, weakness, numbness EKG Findings - EKG Comments: EKG Findings:: There are T inversions laterally concerning for possible ischemia. - EKG Results: EKG: interpreted by ERMD, sinus rhythm (Rate 64 bpm), normal axis, normal QRS - Blocks, Cerrillos, Hypertrophy, ST Abn: Repolarization changes or abnormalities: ST or T wave suggestive of ischemia ( Lateral leads) Past Medical History Past Medical History: Coronary Artery Disease (CAD), Chest Pain / Angina, Hyperlipidemia, Hypertension, Osteoarthritis (OA), Renal Disease Additional Past Medical History / Comment(s): decreased kidney function, recent SOB w/exertion History of Any Multi-Drug Resistant Organisms: None Reported Past Surgical History: Heart Catheterization, Hernia Repair, Orthopedic Surgery , Prostate Surgery Additional Past Surgical History / Comment(s): Abel rotator cuff, abel varicose vein stripping, TURP. CARDIAC CATH 08/17/16 Past Anesthesia/Blood Transfusion Reactions: No Reported Reaction Past Psychological History: No Psychological Hx Reported Smoking Status: Former smoker - Past Family History Mother Family Medical History: Cancer Father Family Medical History: Cancer General Exam Limitations: no limitations Course Vital Signs 11/13/16 02:48 Temperature 97.7 F Pulse Rate 63 Respiratory 18 Rate Blood Pressure 136/77 O2 Sat by Pulse 99 Oximetry Disposition Referrals: Dale Rooney DO [Primary Care Provider] - 1-2 days
[2016-11-13 03:21] LABS: Basophils % (A) 0 %; CH 30.8; CHCM 33.5; Eosinophils # (A) 0.9 k/uL (0-0.7); Eosinophils % (A) 10 %; HCT 47.5 % (39.0-53.0); HDW 2.55; HGB 15.7 gm/dL (13.0-17.5); Luc # (Auto) 0.35; Luc % (Auto) 4; Lymphocytes # (A) 1.3 k/uL (1.0-4.8); Lymphocytes % (A) 14 %; MCH 30.6 pg (25.0-35.0); MCV 92.6 fL (80.0-100.0); Mean Platelet Volume 8.3; Monocytes # (A) 0.6 k/uL (0-1.0); Monocytes % (A) 7 %; Neutrophils # (A) 5.8 k/uL (1.3-7.7); Neutrophils % (A) 65 %; RBC 5.13 m/uL (4.30-5.90); WBC 8.9 k/uL (3.8-10.6)
[2016-11-13 03:31] LABS: Partial Thromboplastin Time 25.3 sec (22.0-30.0); Prothrombin Time 10.6 sec (9.0-12.0)
[2016-11-13 03:32] LABS: Calcium 9.4 mg/dL (8.4-10.2); Magnesium 1.9 mg/dL (1.6-2.3); Potassium 3.9 mmol/L (3.5-5.1); Total Bilirubin 0.4 mg/dL (0.2-1.3); Total Protein 6.8 g/dL (6.3-8.2)
[2016-11-13 03:45] LABS: Creatine Kinase 149 U/L (55-170)
[2016-11-13 03:59] LABS: Creatine Kinase MB 1.8 ng/mL (0.0-2.4); Troponin I <0.012 ng/mL (0.000-0.034)
--- NOTE | 2016-11-13 04:42 | XR ---
INDICATION: Chest pain COMPARISON: CXR 10/20/15 FINDINGS: Single frontal view demonstrates a normal cardiomediastinal silhouette. The lungs are clear. No pleural the effusion or pneumothorax. The visualized osseous structures are within normal limits. IMPRESSION: No acute cardiopulmonary disease.
[2016-11-13] MEDS ORDERED: NITROGLYCERIN SL TABS 0.4 MG TAB SUBLINGUAL PRN (05:30)
[2016-11-13] MEDS ORDERED: HEPARIN SODIUM,PORCINE 5,000 UNIT/ML 1 ML VIAL IV ONE (05:30)
[2016-11-13] MEDS: HEPARIN SODIUM,PORCINE/D5W PMX 25,000 UNIT in DEXTROSE/WATER 1 500ML.BAG IV SCH (05:48)
[2016-11-13] MEDS: SODIUM CHLORIDE 0.9% 1,000 ML IV SCH ×2 (05:48→17:48)
[2016-11-13 06:27] VITALS: BMI 23.6
[2016-11-13 09:00] LABS: Creatine Kinase MB 1.6 ng/mL (0.0-2.4); Troponin I 0.016 ng/mL (0.000-0.034)
[2016-11-13] MEDS ORDERED: ASPIRIN 81 MG PO SCH (09:00)
--- NOTE | 2016-11-13 12:27 | P.CRDCN ---
History of Present Illness Consult date: 11/13/16 Chief complaint: Chest discomfort History of present illness: This is a pleasant 65-year-old gentleman who sees Dr. MATTIE Huber in the office on regular basis who underwent in July 2016 successful atherectomy and stenting of the mid LAD, known hypertension, dyslipidemia, presented to the hospital complaining of chest discomfort. The patient was in his usual state of health until about a week ago when he started noticing declining in his energy as well as exertional dyspnea. Over the last 48 hours he has been experiencing chest discomfort for. He described it as a dull kind of discomfort in the mid of the chest without any radiation. He states that the discomfort is a bit different from what he experienced before his angioplasty and stenting. He underwent 2 sets of cardiac enzymes came in to be unremarkable. The EKG showed sinus rhythm with ST changes in the anterior leads. The third set of cardiac enzymes would be to this early afternoon. The patient continues to be pain-free during his hospitalization. Past Medical History Past Medical History: Coronary Artery Disease (CAD), Chest Pain / Angina, Hyperlipidemia, Hypertension, Osteoarthritis (OA), Renal Disease Additional Past Medical History / Comment(s): decreased kidney function, recent SOB w/exertion History of Any Multi-Drug Resistant Organisms: None Reported Past Surgical History: Heart Catheterization, Heart Catheterization With Stent, Hernia Repair, Orthopedic Surgery, Prostate Surgery Additional Past Surgical History / Comment(s): Abel rotator cuff, abel varicose vein stripping, TURP. CARDIAC CATH 08/17/16 Past Anesthesia/Blood Transfusion Reactions: No Reported Reaction Date of Last Stent Placement:: Past Psychological History: No Psychological Hx Reported Smoking Status: Former smoker Past Alcohol Use History: Occasional Past Drug Use History: None Reported - Past Family History Mother Family Medical History: Cancer Additional Family Medical History / Comment(s): Colon CA Father Family Medical History: Cancer Additional Family Medical History / Comment(s): Stomach CA Medications and Allergies Home Medications Medication Instructions Recorded Confirmed Type Atorvastatin [Lipitor] 80 mg PO DAILY 05/17/16 11/13/16 History Turmeric Root Extract [Turmeric] 500 mg PO DAILY 05/17/16 11/13/16 History Metoprolol Tartrate [Lopressor] 12.5 mg PO BID 08/19/16 11/13/16 History Aspirin 81 mg PO DAILY #90 08/22/16 11/13/16 Rx Calcitriol [Rocaltrol] 0.25 mcg PO RAMIREZ cap 08/22/16 11/13/16 Rx Clopidogrel [Plavix] 75 mg PO DAILY #90 tab 08/22/16 11/13/16 Rx Nitroglycerin Sl Tabs [Nitrostat] 0.4 mg SUBLINGUAL Q5M PRN tab 08/22/16 Rx amLODIPine [Norvasc] 2.5 mg PO HS 11/13/16 11/13/16 History Allergies Allergy/AdvReac Type Severity Reaction Status Date / Time losartan AdvReac Rash/Hives Verified 11/13/16 11:20 Physical Exam Vitals: Vital Signs Temp Pulse Pulse Resp BP BP Pulse Ox 11/13/16 12:00 98.1 F 59 L 16 104/72 97 11/13/16 06:45 98.1 F 57 L 18 121/69 99 11/13/16 06:40 16 11/13/16 05:53 65 16 103/72 99 11/13/16 05:00 60 17 101/68 99 11/13/16 03:48 66 16 116/78 100 11/13/16 02:48 97.7 F 63 18 136/77 99 Intake and Output 11/12/16 11/13/16 11/13/16 22:59 06:59 14:59 Other: Weight 74.84 kg - Constitutional General appearance: no acute distress - Respiratory Respiratory: bilateral: CTA - Cardiovascular Rhythm: regular Heart sounds: normal: S1, S2 Results 11/13/16 03:02 11/13/16 03:02 Cardiac Enzymes 11/13/16 11/13/16 11/13/16 Range/Units 03:02 03:02 06:43 AST 28 (17-59) U/L CK-MB (CK-2) 1.8 1.6 (0.0-2.4) ng/mL Troponin I <0.012 0.016 (0.000-0.034) ng/mL Coagulation 11/13/16 Range/Units 03:02 PT 10.6 (9.0-12.0) sec APTT 25.3 (22.0-30.0) sec CBC 11/13/16 Range/Units 03:02 WBC 8.9 (3.8-10.6) k/uL RBC 5.13 (4.30-5.90) m/uL Hgb 15.7 (13.0-17.5) gm/dL Hct 47.5 (39.0-53.0) % Plt Count 184 (150-450) k/uL Comprehensive Metabolic Panel 11/13/16 Range/Units 03:02 Sodium 139 (137-145) mmol/L Potassium 3.9 (3.5-5.1) mmol/L Chloride 107 (98-107) mmol/L Carbon Dioxide 23 (22-30) mmol/L BUN 30 H (9-20) mg/dL Creatinine 1.50 H (0.66-1.25) mg/dL Glucose 92 (74-99) mg/dL Calcium 9.4 (8.4-10.2) mg/dL AST 28 (17-59) U/L ALT 36 (21-72) U/L Alkaline Phosphatase 57 (38-126) U/L Total Protein 6.8 (6.3-8.2) g/dL Albumin 3.9 (3.5-5.0) g/dL Current Medications Generic Name Dose Route Start Last Admin Trade Name Freq PRN Reason Stop Dose Admin Amlodipine Besylate 2.5 mg 11/13/16 09:00 Norvasc PO DAILY [facility] Aspirin 325 mg 11/14/16 09:00 Aspirin PO DAILY [facility] Atorvastatin Calcium 80 mg 11/13/16 09:00 Lipitor PO DAILY [facility] Calcitriol 0.25 mcg 11/14/16 09:00 Rocaltrol PO Ramirez@0900 [facility] Clopidogrel Bisulfate 75 mg 11/13/16 09:00 Plavix PO DAILY [facility] Heparin Sodium/Dextrose 25,000 500 mls @ 17.96 mls/hr 11/13/16 05:30 05:48 unit/ IV Solution IV 12 units/kg/hr .Q24H [facility] 17.96 mls/hr Protocol Administration 12 UNITS/KG/HR Sodium Chloride 1,000 mls @ 100 mls/hr 11/13/16 05:30 11/13/16 05:48 Saline 0.9% IV 100 mls/hr .Q10H [facility] Administration Metoprolol Tartrate 12.5 mg 11/13/16 09:00 Lopressor PO BID [facility] Nitroglycerin 0.4 mg 11/13/16 05:30 Nitrostat SUBLINGUAL Q5M PRN Chest Pain Intake and Output 11/12/16 11/13/16 11/13/16 22:59 06:59 14:59 Other: Weight 74.84 kg 11/13/16 03:02 11/13/16 03:02 Assessment and Plan Plan: This is a pleasant 65-year-old gentleman was known CAD and prior stenting of the LAD as well as hypertension and dyslipidemia was admitted to the hospital with chest discomfort. 2 sets of cardiac enzymes came in to be unremarkable. The third set would be due with this early afternoon. The EKG showed sinus rhythm with ST changes in the anterior leads. I am concerned about severe underlying CAD like in-stent restenosis for this gentleman. I will keep him on the heparin IV. Follow-up with the surgeon sets of serial cardiac enzymes. I with consider proceeding with heart catheterization if he developed any more chest discomfort or the third set of troponin came in to be abnormal.
[2016-11-13] MEDS: amLODIPine 2.5 MG TAB PO SCH (12:46)
[2016-11-13] MEDS: ATORVASTATIN 80 MG TAB PO SCH (12:46)
[2016-11-13] MEDS: METOPROLOL TARTRATE 12.5 MG TAB PO SCH ×2 (12:46→19:45)
[2016-11-13] MEDS: CLOPIDOGREL 75 MG TAB PO SCH (12:46)
[2016-11-13 16:00] LABS: Creatine Kinase 90 U/L (55-170)
[2016-11-13 16:12] LABS: Troponin I <0.012 ng/mL (0.000-0.034)
[2016-11-14] MEDS: SODIUM CHLORIDE 0.9% 1,000 ML IV SCH ×3 (01:21→19:47)
[2016-11-14] MEDS: HEPARIN SODIUM,PORCINE/D5W PMX 25,000 UNIT in DEXTROSE/WATER 1 500ML.BAG IV SCH (07:00)
[2016-11-14] MEDS: ASPIRIN 325 MG TAB PO SCH (08:08)
[2016-11-14] MEDS: ATORVASTATIN 80 MG TAB PO SCH (08:08)
[2016-11-14] MEDS: METOPROLOL TARTRATE 12.5 MG TAB PO SCH ×2 (08:08→19:45)
[2016-11-14] MEDS: CLOPIDOGREL 75 MG TAB PO SCH (08:08)
[2016-11-14] MEDS: amLODIPine 2.5 MG TAB PO SCH (08:08)
[2016-11-14 08:45] LABS: Cholesterol 141 mg/dL (<200); HDL Cholesterol 51 mg/dL (40-60)
[2016-11-14] MEDS ORDERED: CALCITRIOL 0.25 MCG CAP PO SCH (09:00)
--- NOTE | 2016-11-14 12:30 | P.PN ---
Subjective Principal diagnosis: Chest pain This is a pleasant 65-year-old gentleman who sees Dr. MATTIE Huber in the office on regular basis who underwent in July 2016 successful atherectomy and stenting of the mid LAD, known hypertension, dyslipidemia, presented to the hospital complaining of chest discomfort. The patient was in his usual state of health until about a week ago when he started noticing declining in his energy as well as exertional dyspnea. Over the last 48 hours he has been experiencing chest discomfort for. He described it as a dull kind of discomfort in the mid of the chest without any radiation. He states that the discomfort is a bit different from what he experienced before his angioplasty and stenting. He underwent 2 sets of cardiac enzymes came in to be unremarkable. The EKG showed sinus rhythm with ST changes in the anterior leads. The third set of cardiac enzymes would be to this early afternoon. The patient continues to be pain-free during his hospitalization. Objective - Vital Signs Vital signs: Vital Signs Temp 98.1 F 11/14/16 12:00 Pulse 53 L 11/14/16 12:00 Resp 16 11/14/16 12:00 BP 125/77 11/14/16 12:00 Pulse Ox 99 11/14/16 12:00 Intake & Output 11/13/16 11/14/16 11/14/16 18:59 06:59 18:59 Intake Total 215.52 284.480 Balance 215.52 284.480 Intake: Intake, IV Titration 215.52 284.480 Amount Heparin Sodium,Porcine/ 215.52 284.480 D5w Pmx 25,000 unit In Dextrose/Water 1 500ml. bag @ 12 UNITS/KG/HR 17. 96 mls/hr IV .Q24H [facility] Rx #:[id number] Other: # Voids 1 - Constitutional General appearance: Present: no acute distress - Respiratory Respiratory: bilateral: CTA - Cardiovascular Rhythm: regular Heart sounds: normal: S1, S2 - Labs CBC & Chem 7: 11/13/16 03:02 11/13/16 03:02 Labs: Abnormal Lab Results - Last 24 Hours (Table) 11/13/16 11/14/16 11/14/16 Range/Units 12:59 00:10 07:50 APTT 41.9 H 39.0 H 54.8 H (22.0-30.0) sec Assessment and Plan Plan: This is a pleasant 65-year-old gentleman was known CAD and prior stenting of the LAD as well as hypertension and dyslipidemia was admitted to the hospital with chest discomfort. 2 sets of cardiac enzymes came in to be unremarkable. The third set would be due with this early afternoon. The EKG showed sinus rhythm with ST changes in the anterior leads. I am concerned about severe underlying CAD like in-stent restenosis for this gentleman. I will keep him on the heparin IV. Continue monitoring the patient for additional 24 hours.
--- NOTE | 2016-11-14 22:19 | P.HPIM ---
History of Present Illness H&P Date: 11/13/16 Chief Complaint: Chest tightness This patient is 65-year-old man with a past medical history of Coronary Artery Disease (CAD), Chest Pain / Angina, Hyperlipidemia, Hypertension, Osteoarthritis (OA), Renal Disease presents to ER with chest pain. Patient states that around 1 this morning he he had the onset of substernal chest pain that he is describing as heavy feeling, made worse if he takes a deep breath. Pain is dull pain with no radiation. No associated nausea vomiting. No headache or dizziness. patient also says that has been feeling tired and fatigued and exertional short of breath recently. Patient had stent placement about 3 months back. EKG showed sinus rhythm with nonspecific ST-T wave changes Troponin 3 negative Chest x-ray showed no acute process. Review of Systems CONSTITUTIONAL: No fever, no malaise, weakness and fainting HEENT: No recent visual problems or hearing problems. Denied any sore throat. CARDIOVASCULAR: No chest pain, orthopnea, PND, no palpitations, no syncope. Exertional short of breath. No leg swelling PULMONARY: , No cough or sputum. no hemoptysis. GASTROINTESTINAL: No diarrhea, no nausea, no vomiting, no abdominal pain. Normoactive bowel sounds. NEUROLOGICAL: No headaches, no weakness, no numbness. HEMATOLOGICAL: Denies any bleeding or petechiae. GENITOURINARY: Denies any burning micturition, frequency, or urgency. MUSCULOSKELETAL/RHEUMATOLOGICAL: Denies any joint pain, swelling, or any muscle pain. ENDOCRINE: Denies any polyuria or polydipsia. The rest of the 14-point review of systems is negative. Past Medical History Past Medical History: Coronary Artery Disease (CAD), Chest Pain / Angina, Hyperlipidemia, Hypertension, Osteoarthritis (OA), Renal Disease Additional Past Medical History / Comment(s): decreased kidney function, recent SOB w/exertion History of Any Multi-Drug Resistant Organisms: None Reported Past Surgical History: Heart Catheterization, Heart Catheterization With Stent, Hernia Repair, Orthopedic Surgery, Prostate Surgery Additional Past Surgical History / Comment(s): Abel rotator cuff, abel varicose vein stripping, TURP. CARDIAC CATH 08/17/16 Past Anesthesia/Blood Transfusion Reactions: No Reported Reaction Date of Last Stent Placement:: Past Psychological History: No Psychological Hx Reported Smoking Status: Former smoker Past Alcohol Use History: Occasional Past Drug Use History: None Reported - Past Family History Mother Family Medical History: Cancer Additional Family Medical History / Comment(s): Colon CA Father Family Medical History: Cancer Additional Family Medical History / Comment(s): Stomach CA Medications and Allergies Home Medications Medication Instructions Recorded Confirmed Type Atorvastatin [Lipitor] 80 mg PO DAILY 05/17/16 11/13/16 History Turmeric Root Extract [Turmeric] 500 mg PO DAILY 05/17/16 11/13/16 History Metoprolol Tartrate [Lopressor] 12.5 mg PO BID 08/19/16 11/13/16 History Aspirin 81 mg PO DAILY #90 08/22/16 11/13/16 Rx Calcitriol [Rocaltrol] 0.25 mcg PO KILGORE cap 08/22/16 11/13/16 Rx Clopidogrel [Plavix] 75 mg PO DAILY #90 tab 08/22/16 11/13/16 Rx Nitroglycerin Sl Tabs [Nitrostat] 0.4 mg SUBLINGUAL Q5M PRN tab 08/22/16 Rx amLODIPine [Norvasc] 2.5 mg PO HS 11/13/16 11/13/16 History Allergies Allergy/AdvReac Type Severity Reaction Status Date / Time losartan AdvReac Rash/Hives Verified 11/13/16 11:20 Physical Exam Vitals: Vital Signs Temp Pulse Pulse Resp BP BP Pulse Ox 11/13/16 12:00 98.1 F 59 L 16 104/72 97 11/13/16 06:45 98.1 F 57 L 18 121/69 99 11/13/16 06:40 16 11/13/16 05:53 65 16 103/72 99 11/13/16 05:00 60 17 101/68 99 11/13/16 03:48 66 16 116/78 100 11/13/16 02:48 97.7 F 63 18 136/77 99 Intake and Output 11/13/16 11/13/16 11/13/16 06:59 14:59 22:59 Other: Weight 74.84 kg PHYSICAL EXAMINATION: Patient is lying in the bed comfortably, no acute distress, awake alert and oriented.. HEENT: Normocephalic. Neck is supple. Pupils reactive. Nostrils clear. Oral cavity is moist. Ears reveal no drainage. Neck reveals no JVD, carotid bruits, or thyromegaly. CHEST EXAMINATION: Trachea is central. Symmetrical expansion. Lung rivera clear to auscultation and percussion. CARDIAC: Normal S1, S2 with no gallops. No murmurs ABDOMEN: Soft. Bowel sounds normal. No organomegaly. No abdominal bruits. Extremities reveal no edema. No clubbing or cyanosis Neurologically awake, alert, oriented x3 with well-coordinated movements. Skin: no rash or skin lesions Musculoskeletal: no joint swelling or deformity. Results CBC & Chem 7: 11/13/16 03:02 11/13/16 03:02 Labs: Abnormal Lab Results - Last 24 Hours (Table) 11/13/16 11/13/16 11/13/16 Range/Units 03:02 03:02 12:59 Eosinophils # 0.9 H (0-0.7) k/uL APTT 41.9 H (22.0-30.0) sec BUN 30 H (9-20) mg/dL Creatinine 1.50 H (0.66-1.25) mg/dL Thrombosis Risk Factor Assmnt - DVT/VTE Prophylaxis DVT/VTE Prophylaxis: Pharmacologic Prophylaxis ordered - Choose All That Apply Each Factor Represents 1 point: Varicose veins Each Risk Factor Represents 2 Points: Age 61-74 years Thrombosis Risk Factor Assessment Total Risk Factor Score: 3 Thrombosis Risk Factor Assessment Level: Moderate Risk Assessment and Plan Plan: Chest pain / angina and exertional short of breath. History of present coronary artery disease stent placement Hypertension Hyperlipidemia Chronic kidney disease stage III Plan: Patient recommended on IV heparin. Cardiology consult about stent restenosis. Continue telemetry monitoring and final recommendations from cardiology regarding cardiac catheterization. Further recommendations based on the clinical course.
--- NOTE | 2016-11-14 22:20 | P.PN ---
Subjective Principal diagnosis: Chest tightness This patient is 65-year-old man with a past medical history of Coronary Artery Disease (CAD), Chest Pain / Angina, Hyperlipidemia, Hypertension, Osteoarthritis (OA), Renal Disease presents to ER with chest pain. Patient states that around 1 this morning he he had the onset of substernal chest pain that he is describing as heavy feeling, made worse if he takes a deep breath. Pain is dull pain with no radiation. No associated nausea vomiting. No headache or dizziness. patient also says that has been feeling tired and fatigued and exertional short of breath recently. Patient had stent placement about 3 months back. EKG showed sinus rhythm with nonspecific ST-T wave changes Troponin 3 negative Chest x-ray showed no acute process. On 11/14/2009 Patient denied any chest pain or short of breath. No acute overnight issues. no nausea vomiting or abdominal pain. No fever no chills. Objective - Vital Signs Vital signs: Vital Signs Temp 98.3 F 11/14/16 19:40 Pulse 63 11/14/16 19:40 Resp 16 11/14/16 19:53 BP 120/75 11/14/16 19:40 Pulse Ox 97 11/14/16 19:40 Intake & Output 11/14/16 11/14/16 11/15/16 06:59 18:59 06:59 Intake Total 284.480 Balance 284.480 Intake: Intake, IV Titration 284.480 Amount Heparin Sodium,Porcine/ 284.480 D5w Pmx 25,000 unit In Dextrose/Water 1 500ml. bag @ 12 UNITS/KG/HR 17. 96 mls/hr IV .Q24H [facility] Rx #:[id number] Other: # Voids 1 1 - Exam PHYSICAL EXAMINATION: Patient is lying in the bed comfortably, no acute distress, awake alert and oriented.. HEENT: Normocephalic. Neck is supple. Pupils reactive. Nostrils clear. Oral cavity is moist. Ears reveal no drainage. Neck reveals no JVD, carotid bruits, or thyromegaly. CHEST EXAMINATION: Trachea is central. Symmetrical expansion. Lung rivera clear to auscultation and percussion. CARDIAC: Normal S1, S2 with no gallops. No murmurs ABDOMEN: Soft. Bowel sounds normal. No organomegaly. No abdominal bruits. Extremities reveal no edema. No clubbing or cyanosis Neurologically awake, alert, oriented x3 with well-coordinated movements. Skin: no rash or skin lesions Musculoskeletal: no joint swelling or deformity. - Labs CBC & Chem 7: 11/13/16 03:02 11/13/16 03:02 Labs: Abnormal Lab Results - Last 24 Hours (Table) 11/14/16 11/14/16 Range/Units 00:10 07:50 APTT 39.0 H 54.8 H (22.0-30.0) sec Assessment and Plan Plan: Chest pain / angina and exertional short of breath. History of present coronary artery disease stent placement Hypertension Hyperlipidemia Chronic kidney disease stage III Plan: Patient recommended on IV heparin. Cardiology consult about stent restenosis. Continue telemetry monitoring and final recommendations from cardiology regarding cardiac catheterization. Further recommendations based on the clinical course.
[2016-11-15] MEDS: HEPARIN SODIUM,PORCINE/D5W PMX 25,000 UNIT in DEXTROSE/WATER 1 500ML.BAG IV SCH (04:32)
[2016-11-15] MEDS ORDERED: AMINOPHYLLINE 500 MG/20 ML VIAL IV PRN (08:50)
[2016-11-15] MEDS ORDERED: REGADENOSON 0.4 MG/5 ML SYRINGE IV ONE (08:50)
[2016-11-15] MEDS ORDERED: SODIUM CHLORIDE 0.9% 1,000 ML IV SCH (09:00)
[2016-11-15] MEDS ORDERED: PANTOPRAZOLE 40 MG TABLET PO SCH (09:00)
--- NOTE | 2016-11-15 09:21 | PN ---
PROGRESS NOTE HISTORY: A 65-year-old gentleman who underwent stenting of a complex calcified LAD in July, came into the hospital with chest pain. His troponins are negative. No recurrence of pain. He is ambulating the hallways without symptoms. The patient's echo today revealed preserved systolic function with good wall motion of the antral wall. I discussed with him the option of doing a cardiac cath versus a stress test. Patient is reluctant to have a cardiac cath. His pain, he indicates and insists, is very dissimilar to what he had in July. He had more of a fatigue than pain, and then had some burning and then a sensation of heaviness, but that has also resolved. He wishes to proceed in the stress test direction. After due discussion with the patient and , I will perform a Lexiscan stress test and if this is normal, he can be discharged, but if it is abnormal I will perform coronary angiography. This was explained to the patient and in great detail. They understand and wish to proceed. His creatinine is 1.5 and he is being hydrated. I will also obtain a CBC and BMP today. In the meantime, the patient is asymptomatic, ambulating the hallways. Vital signs are stable. S1-S2 heard normally. Lungs are clear. Abdomen and lower extremity exam unchanged. MMODL / IJN: [id number] /
--- NOTE | 2016-11-15 09:38 | P.PN ---
Subjective Patient interviewed and examined. Presenting with increasing fatigue and some shortness of breath for the last several days. These symptoms are similar to what he experienced before he had the stent placed about 3 months back. He denies any chest discomfort no dizziness lightheadedness or palpitations On examination his blood pressure is 130/80 mmHg 1 4776. His mercury heart rate is in the 50s he is afebrile Breath sounds are normal no rhonchi no crackles Heart sounds are normal normal S1 normal S2 Extremities warm no edema Abdomen soft nontender Labs are reviewed, cardiac enzymes are normal. LDL [address] segment V5 and inverted T waves in V6 on ECG Suggest Coronary angiography versus stress testing. Patient wants to proceed with a stress test first we will proceed with a Lexiscan Cardilate stress test today and if this is abnormal then coronary angiography should a few be considered given his symptoms and the similarity with the symptoms prior to his coronary stenting One should have a low threshold for coronary angiography in this case and this was explained to the patient. He has also been seen by MATTIE Moreno and is in agreement Objective - Vital Signs Vital signs: Vital Signs Temp 98.1 F 11/15/16 08:00 Pulse 57 L 11/15/16 08:00 Resp 16 11/15/16 08:00 BP 130/80 11/15/16 08:00 Pulse Ox 98 11/15/16 08:00 Intake & Output 11/14/16 11/15/16 11/15/16 18:59 06:59 18:59 Intake Total 500 Balance 500 Intake: Intake, IV Titration 500 Amount Heparin Sodium,Porcine/ 500 D5w Pmx 25,000 unit In Dextrose/Water 1 500ml. bag @ 12 UNITS/KG/HR 17. 96 mls/hr IV .Q24H [facility] Rx #:[id number] Other: Voiding Method Toilet # Voids 1 - Labs CBC & Chem 7: 11/13/16 03:02 11/13/16 03:02
[2016-11-15 09:47] LABS: Anion Gap 9 mmol/L; Blood Urea Nitrogen 18 mg/dL (9-20); Calcium 9.2 mg/dL (8.4-10.2); Carbon Dioxide 21 mmol/L (22-30); Chloride 111 mmol/L (98-107); Glucose 89 mg/dL (74-99); Non-African American GFR(MDRD) 59 (>60 ml/min/1.73 sqM); Potassium 4.4 mmol/L (3.5-5.1); Sodium 141 mmol/L (137-145)
[2016-11-15] MEDS: SODIUM CHLORIDE 0.9% 1,000 ML IV SCH (10:54)
[2016-11-15] MEDS: ASPIRIN 325 MG TAB PO SCH (11:43)
[2016-11-15] MEDS: amLODIPine 2.5 MG TAB PO SCH (11:43)
[2016-11-15] MEDS: CLOPIDOGREL 75 MG TAB PO SCH (11:44)
[2016-11-15] MEDS: ATORVASTATIN 80 MG TAB PO SCH (11:44)
[2016-11-15] MEDS: METOPROLOL TARTRATE 12.5 MG TAB PO SCH (11:44)
--- NOTE | 2016-11-15 11:46 | NM ---
EXAMINATION TYPE: NM stress lexiscan cardiolite DATE OF EXAM: 11/15/2016 COMPARISON: NONE HISTORY: Chest pain TECHNIQUE: After the intravenous administration of 11.8 mCi Tc 99m Sestamibi - Cardiolite resting SP ECT images acquired 45 minutes post injection. The patient received 0.4mg Lexiscan, 26.4 mCi Tc 99m Sestamibi - Stress images obtained [address] injection FINDINGS: Review of stress and rest SPECT images demonstrates no distinct perfusion abnormality. Gated analysi s shows normal wall motion with an estimated left ventricular ejection fraction of 56 %. IMPRESSION: No scintigraphic evidence for reversible ischemia.
[2016-11-15 12:23] VITALS: RESP 18
[2016-11-15 16:24] VITALS: BP 123/73; PULSE 52; TEMP 98.1
--- NOTE | 2016-11-15 17:42 | ECHOF ---
Referral Reason:CHEST PAIN MEASUREMENTS -------- HEIGHT: 177.8 cm WEIGHT: 74.8 kg BP: 130/80 RVIDd: 3.1 cm (< 3.3) IVSd: 1.4 cm (0.6 - 1.1) LVIDd: 4.6 cm (3.9 - 5.3) LVPWd: 1.5 cm (0.6 - 1.1) IVSs: 1.6 cm LVIDs: 3.7 cm LVPWs: 1.8 cm LA Diam: 3.5 cm (2.7 - 3.8) LAESV Index (A-L): 24.31 ml/m Ao Diam: 3.9 cm (2.0 - 3.7) AV Cusp: 2.6 cm (1.5 - 2.6) MV EXCURSION: 19.783 mm (> 18.000) MV EF SLOPE: 51 mm/s (70 - 150) EPSS: 1.5 cm MV E Alban: 0.54 m/s MV DecT: 302 ms MV A Alban: 1.01 m/s MV E/A Ratio: 0.54 RAP: 5.00 mmHg RVSP: 25.10 mmHg FINDINGS -------- Sinus rhythm. This was a technically good study. The left ventricular size is normal. There is moderate concentric left ventricular hypertrophy. Overall left ventricular systolic function is low-normal with, an EF between 50 - 55 %. The right ventricle is normal in size. Normal LA size by volume 22+/-6 ml/m2. The right atrium is normal in size. The aortic valve is trileaflet and appears structurally normal. Trace to mild aortic regurgitation. The mitral valve leaflets are mildly thickened. Mild mitral regurgitation is present. Mild tricuspid regurgitation present. Right ventricular systolic pressure is normal at < 35 mmHg. The pulmonic valve was not well visualized. The aortic root is dilated measuring 3.9cm. Normal inferior vena cava with normal inspiratory collapse consistent with estimated right atrial pressure of 5 mmHg. There is no pericardial effusion. CONCLUSIONS -------- 1. Sinus rhythm. 2. Trace to mild aortic regurgitation. 3. The mitral valve leaflets are mildly thickened. 4. Mild mitral regurgitation is present. 5. Mild tricuspid regurgitation present. 6. Right ventricular systolic pressure is normal at < 35 mmHg. 7. The pulmonic valve was not well visualized. 8. The aortic root is dilated measuring 3.9cm. 9. Normal inferior vena cava with normal inspiratory collapse consistent with estimated right atrial pressure of 5 mmHg. 10. There is no pericardial effusion. 11. This was a technically good study. 12. The left ventricular size is normal. 13. There is moderate concentric left ventricular hypertrophy. 14. Overall left ventricular systolic function is low-normal with, an EF between 50 - 55 %. 15. The right ventricle is normal in size. 16. Normal LA size by volume 22+/-6 ml/m2. 17. The right atrium is normal in size. 18. The aortic valve is trileaflet and appears structurally normal. CATALYST OPERATOR GASOLINE: Julia Park RDCS
--- NOTE | 2016-11-15 20:07 | EST ---
EXERCISE STRESS AGE: 65 SEX: M HT: 5'10" WT: 165 PROTOCOL: Lexiscan STAGE: DURATION OF EXERCISE: HEART RATE REST: 56 BLOOD PRESSURE REST: 131/81 MAXIMUM HEART RATE ACHIEVED: 87 MAXIMUM BLOOD PRESSURE: 131/81 85% MPHR: 131 100% MPHR: 154 METS: INDICATIONS: Chest pain CLINICAL INFORMATION: A 65-year-old, male patient referred for Lexiscan Cardiolite stress test. Baseline heart rate 56 beats per minute. Baseline blood pressure 131/81 mmHg. Baseline 12-lead ECG shows normal sinus rhythm, with ST-segment abnormalities in the lateral precordial leads with T-wave inversion. Patient received Lexiscan infusion per protocol. Heart rate and blood pressure remained normal. There was no change in his ECG or ST segments. He was asymptomatic. Nuclear portion of the stress test will be reported separately. KERI / MARISOLN: [id number] /
== END 2016-11-15 18:49 | disposition home or self-care (01) | DRG 303 ==
LOC: EC 02:47 → 3OBS 05:30 → OBSVTOIN 11-14 21:35
PROVIDERS: ADMIT Hospitalist; ATTEND Hospitalist
PROC: 4A12XM4 Monitoring of Cardiac Stress, External Approach (ICD-10-PCS; principal; 2016-11-15)
PROC: 3E033HZ Introduction of Radioactive Substance into Peripheral Vein, Percutaneous Approach (ICD-10-PCS; 2016-11-15)
PROC: C22G1ZZ Tomographic (Tomo) Nuclear Medicine Imaging of Myocardium using Technetium 99m (Tc-99m) (ICD-10-PCS; 2016-11-15)
DX: I25.119 Atherosclerotic heart disease of native coronary artery with unspecified angina pectoris (principal); N18.3 Chronic kidney disease, stage 3 (moderate); I12.9 Hypertensive chronic kidney disease with stage 1 through stage 4 chronic kidney disease, or unspecified chronic kidney disease; E78.5 Hyperlipidemia, unspecified; I83.90 Asymptomatic varicose veins of unspecified lower extremity; R53.83 Other fatigue; R06.02 Shortness of breath; M19.90 Unspecified osteoarthritis, unspecified site; Z95.5 Presence of coronary angioplasty implant and graft; Z87.891 Personal history of nicotine dependence; Z79.899 Other long term (current) drug therapy; Z80.0 Family history of malignant neoplasm of digestive organs; Z79.82 Long term (current) use of aspirin; Z79.02 Long term (current) use of antithrombotics/antiplatelets; Z92.29 Personal history of other drug therapy; Z88.8 Allergy status to other drugs, medicaments and biological substances; Z90.79 Acquired absence of other genital organ(s)
CPT/HCPCS: 36415; 71010; 78452; 80048; 80053; 80061; 82150; 82550; 82553; 83690; 83735; 84484; 85025; 85379; 85610; 85730; 93005; 93017; 93306; 96361; 96365; 96366; 96374; 96376; 99285

== ENCOUNTER → 2016-11-16 | Outpatient (CLI) | payer MEDICARE ==
--- NOTE | 2016-11-17 06:38 | US ---
EXAMINATION TYPE: US kidneys/renal and bladder DATE OF EXAM: 11/16/2016 COMPARISON: October 11, 2013 renal US CLINICAL HISTORY: N18.3 Chronic kidney disease stage 3. CKD stage 3 EXAM MEASUREMENTS: Right Kidney: 10.2 x 5.3 x 5.4 cm Left Kidney: 10.2 x 5.2 x 4.0 cm Right Kidney: lobulated contour, distended renal pelvis redemonstrated Left Kidney: lobulated contour, distended renal pelvis measuring 3.4cm Bladder: Bilateral Jets seen: right jet not seen There is redemonstration of prominent renal pelvises bilaterally, left more prominent than right with out significant calyceal dilatation. No nephrolithiasis is seen. No masses are identified on images saved. The urinary bladder is anechoic. Distal left ureteral jet is seen. There is outpouching susp icious [place]iculum on image [id number]. IMPRESSION: Persistent left greater than right prominent renal pelvises, suspect extrarenal pelvises, hydronephro sis felt less likely but not excluded. Consider correlating with functional study.
== END | disposition home or self-care (01) ==
LOC: RADUSWWP 16:03
PROVIDERS: ATTEND Internal Medicine Nephrology
DX: N18.3 Chronic kidney disease, stage 3 (moderate) (principal)
CPT/HCPCS: 76770

== ENCOUNTER → 2017-04-21 | Outpatient (CLI) | payer MEDICARE ==
[2017-04-21 09:53] LABS: Appearance,Urine Clear (Clear); Bilirubin,Urine Negative (Negative); Blood,Urine Negative (Negative); Color,Urine Yellow; Glucose,Urine (UA) Negative (Negative); HCT 47.4 % (39.0-53.0); HGB 15.3 gm/dL (13.0-17.5); Ketones,Urine Negative (Negative); Leukocyte Esterase,Urine Negative (Negative); MCH 28.9 pg (25.0-35.0); MCHC 32.2 g/dL (31.0-37.0); MCV 89.8 fL (80.0-100.0); Mean Platelet Volume 8.6; PH, Urine 5.5 (5.0-8.0); Platelet Count 224 k/uL (150-450); Protein,Urine Negative (Negative); RBC 5.28 m/uL (4.30-5.90); RDW 13.4 % (11.5-15.5); Specific Gravity,Urine 1.015 (1.001-1.035); Urobilinogen,Urine <2.0 mg/dL (<2.0); WBC 7.3 k/uL (3.8-10.6)
[2017-04-21 10:10] LABS: Anion Gap 10 mmol/L; Blood Urea Nitrogen 35 mg/dL (9-20); Calcium 9.6 mg/dL (8.4-10.2); Carbon Dioxide 30 mmol/L (22-30); Chloride 102 mmol/L (98-107); Cholesterol 163 mg/dL (<200); Glucose 92 mg/dL (74-99); HDL Cholesterol 61 mg/dL (40-60); LDL Cholesterol,Calculated 82 mg/dL (0-99); Phosphorus 3.3 mg/dL (2.5-4.5); Potassium 4.3 mmol/L (3.5-5.1); Sodium 142 mmol/L (137-145); Triglycerides 101 mg/dL (<150); Uric Acid 6.8 mg/dL (3.5-8.5)
[2017-04-21 16:30] LABS: Iron Saturation 31.07 (15.00-50.00)
[2017-04-21 17:15] LABS: Parathyroid Hormone Intact 73.4 pg/mL (14.0-72.0)
== END | disposition home or self-care (01) ==
LOC: LABWHC1 09:07
PROVIDERS: ATTEND Nurse Practitioner Family
DX: N18.3 Chronic kidney disease, stage 3 (moderate) (principal); D64.9 Anemia, unspecified; N39.0 Urinary tract infection, site not specified; E55.9 Vitamin D deficiency, unspecified; E78.00 Pure hypercholesterolemia, unspecified; N25.81 Secondary hyperparathyroidism of renal origin; M10.9 Gout, unspecified
CPT/HCPCS: 36415; 80048; 80061; 81003; 82728; 83540; 83550; 83735; 83970; 84100; 84550; 85027

== ENCOUNTER → 2017-05-17 | Day surgery (SDC) | payer MEDICARE ==
[2017-05-13 10:20] VITALS: BMI 24.3
[~2017-05-17] MED LIST changes: -ALPRAZolam 0.25 MG TAB PO PRN; -ALPRAZolam 0.5 MG TAB PO PRN; -ASPIRIN 325 MG TAB PO STA; -ATORVASTATIN 80 MG TAB PO STA; +LACTATED RINGERS 1,000 ML IV ONE; +LACTATED RINGERS 1,000 ML IV SCH; +LIDOCAINE 1% 20 ML VIAL (10MG/ML) FOR IV START INTRADERMA PRN; +LIDOCAINE 1% INJ 10MG/ML (20 ML MDV) ONE; -NITROGLYCERIN SL TABS 0.4 MG TAB SUBLINGUAL PRN; +PROPOFOL 10 MG/ML 20 ML VIAL IV ONE
[2017-05-17 10:46] VITALS: RESP 18; TEMP 98
[2017-05-17 12:00] VITALS: BP 105/69
[2017-05-17 12:19] VITALS: PULSE 54
--- NOTE | 2017-05-17 13:14 | P.PCN ---
Date of Procedure: 05/17/17 Procedure(s) Performed: Procedure: Total colonoscopy. Preoperative diagnosis: Intermittent rectal bleeding. Postoperative diagnosis: 1. Diverticulosis with no evidence of acute diverticulitis or strictures. 2. Low-grade internal hemorrhoids without bleeding at the time of the exam. 3. No polyps or cancer seen or any other pathology or spontaneous bleeding. Preparation: HalfLytely prep. Sedation: Was provided by anesthesia. Brief clinical history: The patient is a 66-year-old male who is scheduled for this evaluation because of intermittent rectal bleeding. There is no abdominal pain, change in bowel habits or other symptoms or anemia. His last colonoscopy was around 5 or 6 years ago. Procedure: With the patient on his left lateral decubitus position and after informed consent and adequate sedation, the perianal area was inspected and it did not show any fissures or fistulas. There were no masses felt on digital rectal examination. The Olympus CFQ 160L video colonoscope was then inserted in the rectum in the usual fashion and advanced to the cecum. There was few diverticular orifices seen scattered in the sigmoid and an occasional orifice around the hepatic flexure and the right side but there was no evidence of acute diverticulitis or strictures. No polyps or tumors were seen. In the retroflex view in the rectum, there was a short area of telangiectasia close to the anorectal junction and low-grade internal hemorrhoids were noted. There was some friability in that area at the conclusion of the examination but no significant spontaneous bleeding. The patient tolerated the procedure well. Plan: The patient was reassured. Discussed dietary measures and local care for hemorrhoids and I gave him a prescription of Proctocort suppositories. The contingency, if his symptoms persist, is to consider using argon plasma coagulation for that short area of telangiectasia inside his rectum. I will keep you updated on his progress.
== END ==
LOC: ORWHC2ENDO 10:04
DX: K57.30 Diverticulosis of large intestine without perforation or abscess without bleeding (principal); K64.8 Other hemorrhoids; K55.20 Angiodysplasia of colon without hemorrhage; I25.10 Atherosclerotic heart disease of native coronary artery without angina pectoris; I10 Essential (primary) hypertension; N40.0 Benign prostatic hyperplasia without lower urinary tract symptoms; E78.5 Hyperlipidemia, unspecified; M19.90 Unspecified osteoarthritis, unspecified site; N28.9 Disorder of kidney and ureter, unspecified; Z95.5 Presence of coronary angioplasty implant and graft; I25.2 Old myocardial infarction; Z79.02 Long term (current) use of antithrombotics/antiplatelets; Z79.82 Long term (current) use of aspirin; Z79.899 Other long term (current) drug therapy; Z88.8 Allergy status to other drugs, medicaments and biological substances
CPT/HCPCS: 45378; J2001; J2704

== ENCOUNTER → 2018-04-19 | Outpatient (CLI) | payer MEDICARE ==
[2018-04-19 12:19] LABS: Appearance,Urine Clear (Clear); Bilirubin,Urine Negative (Negative); Blood,Urine Negative (Negative); Color,Urine Light Yellow; Glucose,Urine (UA) Negative (Negative); Ketones,Urine Negative (Negative); Leukocyte Esterase,Urine Negative (Negative); Nitrite,Urine Negative (Negative); PH, Urine 6.5 (5.0-8.0); Protein,Urine Negative (Negative); Specific Gravity,Urine 1.005 (1.001-1.035); Urobilinogen,Urine <2.0 mg/dL (<2.0)
[2018-04-19 12:48] LABS: Basophils % (A) 0 %; Eosinophils # (A) 0.2 k/uL (0-0.7); Eosinophils % (A) 3 %; HCT 50.7 % (39.0-53.0); HGB 16.3 gm/dL (13.0-17.5); Lymphocytes % (A) 15 %; MCH 29.4 pg (25.0-35.0); MCHC 32.1 g/dL (31.0-37.0); MCV 91.5 fL (80.0-100.0); Mean Platelet Volume 7.8; Monocytes # (A) 0.3 k/uL (0-1.0); Monocytes % (A) 5 %; Neutrophils # (A) 4.8 k/uL (1.3-7.7); Neutrophils % (A) 72 %; Platelet Count 211 k/uL (150-450); RBC 5.54 m/uL (4.30-5.90); RDW 13.6 % (11.5-15.5); WBC 6.6 k/uL (3.8-10.6)
[2018-04-19 16:24] LABS: Parathyroid Hormone Intact 61.2 pg/mL (14.0-72.0)
[2018-04-19 16:59] LABS: Iron Saturation 39.74 (15.00-50.00)
[2018-04-19 17:02] LABS: Anion Gap 6.6 mmol/L (4.00-12.00); Calcium 9.6 mg/dL (8.7-10.3); Carbon Dioxide 26.4 mmol/L (21.6-31.8); Magnesium 1.9 mg/dL (1.5-2.4); Phosphorus 3.7 mg/dL (2.4-5.1); Potassium 4.4 mmol/L (3.5-5.5)
[2018-04-19 17:07] LABS: Vitamin D 25 Hydroxy 32.9 ng/mL (30.0-100.0)
== END | disposition home or self-care (01) ==
LOC: LABWHC1 10:56
PROVIDERS: ATTEND Nurse Practitioner Family
DX: N25.81 Secondary hyperparathyroidism of renal origin (principal); N18.3 Chronic kidney disease, stage 3 (moderate); D63.1 Anemia in chronic kidney disease; M10.9 Gout, unspecified; N39.0 Urinary tract infection, site not specified
CPT/HCPCS: 36415; 80048; 81003; 82306; 82728; 83540; 83550; 83735; 83970; 84100; 84550; 85025

== ENCOUNTER → 2018-10-17 | Outpatient (CLI) | payer MEDICARE ==
[2018-10-17 09:53] LABS: Basophils % (A) 1 %; Eosinophils # (A) 0.2 k/uL (0-0.7); Eosinophils % (A) 3 %; HCT 48.8 % (39.0-53.0); HGB 16.6 gm/dL (13.0-17.5); Lymphocytes # (A) 1.3 k/uL (1.0-4.8); Lymphocytes % (A) 21 %; MCH 30.7 pg (25.0-35.0); MCV 90.2 fL (80.0-100.0); Monocytes # (A) 0.4 k/uL (0-1.0); Monocytes % (A) 6 %; Neutrophils # (A) 4.2 k/uL (1.3-7.7); Neutrophils % (A) 66 %; Platelet Count 217 k/uL (150-450); RBC 5.41 m/uL (4.30-5.90); RDW 14.5 % (11.5-15.5); WBC 6.3 k/uL (3.8-10.6)
[2018-10-17 10:56] LABS: Appearance,Urine Clear (Clear); Bilirubin,Urine Negative (Negative); Blood,Urine Negative (Negative); Color,Urine Yellow; Glucose,Urine (UA) Negative (Negative); Ketones,Urine Negative (Negative); Leukocyte Esterase,Urine Negative (Negative); Nitrite,Urine Negative (Negative); Protein,Urine Negative (Negative); Specific Gravity,Urine 1.012 (1.001-1.035); Urobilinogen,Urine <2.0 mg/dL (<2.0)
[2018-10-17 15:23] LABS: Iron Saturation 34.67 (15.00-50.00)
[2018-10-17 15:41] LABS: African American GFR (CKD) 59.4 (60.0-200.0); Anion Gap 5.1 mmol/L (4.00-12.00); BUN/Creat Ratio 22.14 Ratio (12.00-20.00); Calcium 9.5 mg/dL (8.7-10.3); Carbon Dioxide 29.9 mmol/L (21.6-31.8); Magnesium 1.8 mg/dL (1.5-2.4); Phosphorus 3.3 mg/dL (2.4-5.1); Potassium 4.2 mmol/L (3.5-5.5); Uric Acid 7.8 mg/dL (3.7-8.7)
== END | disposition home or self-care (01) ==
LOC: LABWHC1 08:49
PROVIDERS: ATTEND Nurse Practitioner Family
DX: N39.0 Urinary tract infection, site not specified (principal); M10.9 Gout, unspecified; E55.9 Vitamin D deficiency, unspecified; D63.1 Anemia in chronic kidney disease; N18.3 Chronic kidney disease, stage 3 (moderate); N25.81 Secondary hyperparathyroidism of renal origin
CPT/HCPCS: 36415; 80048; 81003; 82728; 83540; 83550; 83735; 83970; 84100; 84550; 85025

== ENCOUNTER 2020-01-02 21:29 | Emergency (ER) | payer MEDICARE ==
[2020-01-02] MEDS ORDERED: ALBUTEROL NEBULIZED 2.5 MG/3 ML INHALATION STA (21:44)
[2020-01-02] MEDS ORDERED: ACETAMINOPHEN TAB 500 MG TAB PO STA (21:44)
[2020-01-02] MEDS ORDERED: IBUPROFEN 800 MG TAB PO STA (21:45)
--- NOTE | 2020-01-02 21:46 | ED ---
Fever HPI <Robbie Coleman - Last Filed: 01/04/20 07:48> - General Source: patient, RN notes reviewed, old records reviewed Mode of arrival: ambulatory Limitations: no limitations - History of Present Illness MD Complaint: fever, weakness -: days(s) Temperature Source: subjective Context: multiple patients with similar symptoms Associated Symptoms: chills, myalgias, cough Treatments Prior to Arrival: Acetaminophen, Ibuprofen <Marcello Mcdowell - Last Filed: 01/07/20 23:08> - General Chief Complaint: Fever Stated Complaint: fever/SOB Time Seen by Provider: 01/02/20 21:44 - History of Present Illness Initial Comments: this is a 69-year-old male DF for evaluation to 4 days of body aches and pains fever and chills. Had a cold virus test history no results. Patient with cough but no significant shortness of breath no pain no chest painpatient does have history of high blood pressure cholesterol and [place] (Marcello Mcdowell) - Related Data Home Medications Medication Instructions Recorded Confirmed Atorvastatin [Lipitor] 80 mg PO HS 05/17/16 01/05/20 Turmeric Root Extract [Turmeric] 500 mg PO DAILY 05/17/16 01/05/20 Ubidecarenone [Co Q-10] 200 mg PO HS 05/13/17 01/05/20 Metoprolol Tartrate [Lopressor] 25 mg PO AC-BRKFST 01/02/20 01/05/20 Nitroglycerin Sl Tabs [Nitrostat] 0.4 mg SUBLINGUAL Q5M PRN 01/02/20 01/05/20 Previous Rx's Medication Instructions Recorded Aspirin 81 mg PO DAILY #90 08/22/16 calcitrioL [Rocaltrol] 0.25 mcg PO [place] cap 08/22/16 Acetaminophen Tab [Tylenol] 1,000 mg PO Q6HR PRN #30 tab 01/07/20 Albuterol Inhaler [Ventolin Hfa 2 puff INHALATION RT-TID 30 Days 01/07/20 Inhaler] #1 puff Dexamethasone [Decadron] 6 mg PO DAILY 7 Days #7 tablet 01/07/20 Allergies Allergy/AdvReac Type Severity Reaction Status Date / Time losartan Allergy Rash/Hives Verified 01/05/20 08:57 Review of Systems ROS Other: All systems not noted in ROS Statement are negative. <Robbie Coelman - Last Filed: 01/04/20 07:48> ROS Other: All systems not noted in ROS Statement are negative. <Marcello Mcdowell - Last Filed: 01/07/20 23:08> ROS Statement: Those systems with pertinent positive or pertinent negative responses have been documented in the HPI. Past Medical History Past Medical History: Coronary Artery Disease (CAD), Chest Pain / Angina, Hyperlipidemia, Hypertension, Myocardial Infarction ([place]), Osteoarthritis (OA), Renal Disease Additional Past Medical History / Comment(s): decreased kidney function, hemorrhoid., Tinnitus Last Myocardial Infarction Date:: July 2016 History of Any Multi-Drug Resistant Organisms: None Reported Past Surgical History: Heart Catheterization, Heart Catheterization With Stent, Hernia Repair, Orthopedic Surgery, Prostate Surgery Additional Past Surgical History / Comment(s): Izabela rotator cuff, izabela varicose vein stripping, TURP. CARDIAC CATH WITH 3 STENTS @[facility]- 08/17/16. Past Anesthesia/Blood Transfusion Reactions: No Reported Reaction, Motion Sickness Date of Last Stent Placement:: Past Psychological History: No Psychological Hx Reported Smoking Status: Former smoker Past Alcohol Use History: Occasional Past Drug Use History: None Reported - Past Family History Mother Family Medical History: Cancer Additional Family Medical History / Comment(s): COLON CANCER Father Family Medical History: Cancer Additional Family Medical History / Comment(s): STOMACH CANCER <KristenayakaMarcello - Last Filed: 01/07/20 23:08> General Exam Limitations: no limitations General appearance: alert, in no apparent distress Head exam: Present: atraumatic, normocephalic, normal inspection Eye exam: Present: normal appearance, PERRL, EOMI. Absent: scleral icterus, conjunctival injection, periorbital swelling ENT exam: Present: normal exam, mucous membranes moist Neck exam: Present: normal inspection. Absent: tenderness, meningismus, lymphadenopathy Respiratory exam: Present: normal lung sounds bilaterally. Absent: respiratory distress, wheezes, rales, rhonchi, stridor Cardiovascular Exam: Present: regular rate, normal rhythm, normal heart sounds. Absent: systolic murmur, diastolic murmur, rubs, gallop, clicks GI/Abdominal exam: Present: soft, normal bowel sounds. Absent: distended, tenderness, guarding, rebound, rigid Extremities exam: Present: normal inspection, full ROM, normal capillary refill. Absent: tenderness, pedal edema, joint swelling, calf tenderness Back exam: Present: normal inspection Neurological exam: Present: alert, oriented X3, CN II-XII intact Psychiatric exam: Present: normal affect, normal mood Skin exam: Present: warm, dry, intact, normal color. Absent: rash <Marcello Mcdowell - Last Filed: 01/07/20 23:08> Course Vital Signs 01/02/20 01/02/20 01/02/20 21:34 22:26 22:57 Temperature 101.2 F H Pulse Rate 84 79 76 Respiratory 18 16 16 Rate Blood Pressure 117/75 112/88 108/79 O2 Sat by Pulse 95 96 95 Oximetry 01/02/20 01/02/20 01/03/20 23:19 23:28 01:18 Temperature 98.3 F Pulse Rate 76 76 70 Respiratory 19 Rate Blood Pressure 107/78 O2 Sat by Pulse 96 Oximetry Medical Decision Making - Lab Data Result diagrams: 01/02/20 21:51 01/02/20 21:51 <Robbie Coleman - Last Filed: 01/04/20 07:48> - Lab Data Result diagrams: 01/02/20 21:51 01/02/20 21:51 - EKG Data -: EKG Interpreted by Me (EKG is sinus rhythm 75 IA 158 QRS 94 QTC 390) <Marcello Mcdowell - Last Filed: 01/07/20 23:08> - Medical Decision Making I saw this patient in conjunction with the physician chef assistant. I performed independent history and physical exam. Agree with case management. I reevaluated the patient and he requests to go home. We discussed appropriate follow-up and also the return parameters. (Robbie Coleman) - Lab Data Lab Results 01/02/20 01/02/20 01/02/20 Range/Units 21:51 21:51 21:51 WBC 3.7 L (3.8-10.6) k/uL RBC 5.25 (4.30-5.90) m/uL Hgb 16.3 (13.0-17.5) gm/dL Hct 46.9 (39.0-53.0) % MCV 89.4 D (80.0-100.0) fL MCH 31.0 (25.0-35.0) pg MCHC 34.7 (31.0-37.0) g/dL RDW 12.8 (11.5-15.5) % Plt Count 139 L (150-450) k/uL MPV 8.4 Neutrophils % 70 % Lymphocytes % 18 % Monocytes % 7 % Eosinophils % 0 % Basophils % 1 % Neutrophils # 2.6 (1.3-7.7) k/uL Lymphocytes # 0.7 L (1.0-4.8) k/uL Monocytes # 0.3 (0-1.0) k/uL Eosinophils # 0.0 (0-0.7) k/uL Basophils # 0.0 (0-0.2) k/uL PT 9.5 (9.0-12.0) sec INR 0.9 (<1.2) APTT 28.7 (22.0-30.0) sec D-Dimer 1.20 H (<0.60) mg/L FEU Sodium 131 L (137-145) mmol/L Potassium 4.5 (3.5-5.1) mmol/L Chloride 102 (98-107) mmol/L Carbon Dioxide 22 (22-30) mmol/L Anion Gap 7 mmol/L BUN 28 H (9-20) mg/dL Creatinine 1.44 H (0.66-1.25) mg/dL Est GFR (CKD-EPI)AfAm 56 (>60 ml/min/1.73 sqM) Est GFR (CKD-EPI)NonAf 49 (>60 ml/min/1.73 sqM) Glucose 106 H (74-99) mg/dL Plasma Lactic Acid Roscoe (0.7-2.0) mmol/L Calcium 8.6 (8.4-10.2) mg/dL Magnesium 1.9 (1.6-2.3) mg/dL Ferritin 496.6 H (22.0-322.0) ng/mL Total Bilirubin 0.4 (0.2-1.3) mg/dL AST 50 (17-59) U/L ALT 25 (4-49) U/L Alkaline Phosphatase 53 (38-126) U/L Lactate Dehydrogenase 818 H (313-618) U/L C-Reactive Protein 25.9 H (<10.0) mg/L Total Protein 6.7 (6.3-8.2) g/dL Albumin 3.8 (3.5-5.0) g/dL Influenza Type A RNA (Not Detectd) Influenza Type B (PCR) (Not Detectd) 01/02/20 01/02/20 Range/Units 21:51 21:51 WBC (3.8-10.6) k/uL RBC (4.30-5.90) m/uL Hgb (13.0-17.5) gm/dL Hct (39.0-53.0) % MCV (80.0-100.0) fL MCH (25.0-35.0) pg MCHC (31.0-37.0) g/dL RDW (11.5-15.5) % Plt Count (150-450) k/uL MPV Neutrophils % % Lymphocytes % % Monocytes % % Eosinophils % % Basophils % % Neutrophils # (1.3-7.7) k/uL Lymphocytes # (1.0-4.8) k/uL Monocytes # (0-1.0) k/uL Eosinophils # (0-0.7) k/uL Basophils # (0-0.2) k/uL PT (9.0-12.0) sec INR (<1.2) APTT (22.0-30.0) sec D-Dimer (<0.60) mg/L FEU Sodium (137-145) mmol/L Potassium (3.5-5.1) mmol/L Chloride (98-107) mmol/L Carbon Dioxide (22-30) mmol/L Anion Gap mmol/L BUN (9-20) mg/dL Creatinine (0.66-1.25) mg/dL Est GFR (CKD-EPI)AfAm (>60 ml/min/1.73 sqM) Est GFR (CKD-EPI)NonAf (>60 ml/min/1.73 sqM) Glucose (74-99) mg/dL Plasma Lactic Acid Roscoe 0.7 (0.7-2.0) mmol/L Calcium (8.4-10.2) mg/dL Magnesium (1.6-2.3) mg/dL Ferritin (22.0-322.0) ng/mL Total Bilirubin (0.2-1.3) mg/dL AST (17-59) U/L ALT (4-49) U/L Alkaline Phosphatase (38-126) U/L Lactate Dehydrogenase (313-618) U/L C-Reactive Protein (<10.0) mg/L Total Protein (6.3-8.2) g/dL Albumin (3.5-5.0) g/dL Influenza Type A RNA Not Detected (Not Detectd) Influenza Type B (PCR) Not Detected (Not Detectd) Disposition Is patient prescribed a controlled substance at d/c from ED?: No <Robbie Coleman - Last Filed: 01/04/20 07:48> <Marcello Mcdowell - Last Filed: 01/07/20 23:08> Clinical Impression: COVID-19, Pneumonitis Disposition: HOME SELF-CARE Condition: Fair Instructions (If sedation given, give patient instructions): Pneumonitis (ED), Fever in Adults (ED) Referrals: Dale Rooney DO [Primary Care Provider] - 1-2 days
[2020-01-02 22:37] LABS: Basophils % (A) 1 %; Eosinophils % (A) 0 %; HCT 46.9 % (39.0-53.0); HGB 16.3 gm/dL (13.0-17.5); Lymphocytes # (A) 0.7 k/uL (1.0-4.8); Lymphocytes % (A) 18 %; MCHC 34.7 g/dL (31.0-37.0); Mean Platelet Volume 8.4; Monocytes # (A) 0.3 k/uL (0-1.0); Monocytes % (A) 7 %; Neutrophils # (A) 2.6 k/uL (1.3-7.7); Neutrophils % (A) 70 %; Platelet Count 139 k/uL (150-450); RBC 5.25 m/uL (4.30-5.90); RDW 12.8 % (11.5-15.5); WBC 3.7 k/uL (3.8-10.6)
[2020-01-02 22:39] LABS: MCV 89.4 fL (80.0-100.0)
[2020-01-02 22:49] LABS: Albumin 3.8 g/dL (3.5-5.0); C Reactive Protein 25.9 mg/L (<10.0); Calcium 8.6 mg/dL (8.4-10.2); Magnesium 1.9 mg/dL (1.6-2.3); Potassium 4.5 mmol/L (3.5-5.1); Total Bilirubin 0.4 mg/dL (0.2-1.3); Total Protein 6.7 g/dL (6.3-8.2)
[2020-01-02 22:50] LABS: INR 0.9 (<1.2); Partial Thromboplastin Time 28.7 sec (22.0-30.0); Prothrombin Time 9.5 sec (9.0-12.0)
[2020-01-02 22:52] LABS: D-Dimer 1.2 mg/L FEU (<0.60)
--- NOTE | 2020-01-02 22:56 | XR ---
EXAMINATION TYPE: XR chest 1V portable DATE OF EXAM: 01/02/2020 COMPARISON: 11/13/2016 HISTORY: Pneumonia TECHNIQUE: FINDINGS: Heart and mediastinum are normal. There is a mild infiltrate in the right upper lobe. The o ther lung rivera are clear. There are no hilar masses. There is no pleural effusion. IMPRESSION: Minimal right upper lobe pneumonia. This is a change compared to old exam.
[2020-01-02] MEDS ORDERED: SODIUM CHLORIDE 0.9% 500 ML 500 ML IV STA ×2 (23:13)
--- NOTE | 2020-01-03 00:23 | CT ---
EXAM: CT Angiography Chest With Intravenous Contrast CLINICAL HISTORY: ITS.REASON CT Reason: R/O PE TECHNIQUE: Axial computed tomographic angiography images of the chest with intravenous contrast. CTDI is 14.57 mGy and DLP is 334 mGy-cm. This CT exam was performed using one or more of the following dose reduction techniques: automated exposure control, adjustment of the mA and/or kV according to patient size, and/or use of iterative reconstruction technique. MIP reconstructed images were created and reviewed. COMPARISON: No relevant prior studies available. FINDINGS: Pulmonary arteries: No pulmonary embolus. Aorta: No thoracic aortic dissection or aneurysm. Lungs: Scattered reticular and groundglass opacities seen throughout the right lung to a lesser extent the lingula and left lower lobe, likely infectious to include COVID-19. Mild cylindrical bronchiectasis. Pleural space: Unremarkable. No significant effusion. No pneumothorax. Heart: Unremarkable. No cardiomegaly. No significant pericardial effusion. No evidence of RV dysfunction. Bones/joints: No acute fracture. No dislocation. Soft tissues: Unremarkable. Lymph nodes: Unremarkable. No enlarged lymph nodes. IMPRESSION: 1. No pulmonary embolus. 2. Scattered reticular and groundglass opacities seen throughout the right lung to a lesser extent the lingula and left lower lobe, likely infectious to include COVID-19.
[2020-01-03 01:19] VITALS: BP 107/78; PULSE 70; RESP 19; TEMP 98.3
[2020-01-03] MEDS ORDERED: AZITHROMYCIN 500 MG TAB PO STA (01:30)
[2020-01-03 10:54] LABS: Ferritin 496.6 ng/mL (22.0-322.0)
== END 2020-01-03 01:45 | disposition home or self-care (01) ==
LOC: EC 21:29
DX: U07.1 COVID-19 (principal); J18.9 Pneumonia, unspecified organism; E78.5 Hyperlipidemia, unspecified; I10 Essential (primary) hypertension; I25.2 Old myocardial infarction; Z79.899 Other long term (current) drug therapy; Z95.5 Presence of coronary angioplasty implant and graft; Z87.891 Personal history of nicotine dependence; Z88.8 Allergy status to other drugs, medicaments and biological substances
CPT/HCPCS: 36415; 94640; 93005; 85379; 80053; 82728; 83605; 83615; 83735; 85025; 85610; 85730; 86140; 87040; 87502; 71045; 71275; 99285; Q9967

== ENCOUNTER 2020-01-05 05:23 | Inpatient (IN) | payer MEDICARE ==
[2020-01-05 06:12] LABS: Basophils # (A) 0.1 k/uL (0-0.2); Basophils % (A) 1 %; Eosinophils % (A) 0 %; HCT 45.3 % (39.0-53.0); HGB 15.5 gm/dL (13.0-17.5); Lymphocytes # (A) 0.4 k/uL (1.0-4.8); Lymphocytes % (A) 9 %; MCH 30.5 pg (25.0-35.0); MCHC 34.3 g/dL (31.0-37.0); MCV 89.1 fL (80.0-100.0); Mean Platelet Volume 7.8; Monocytes # (A) 0.2 k/uL (0-1.0); Monocytes % (A) 4 %; Neutrophils % (A) 83 %; Platelet Count 152 k/uL (150-450); RBC 5.09 m/uL (4.30-5.90); RDW 12.9 % (11.5-15.5); WBC 4.8 k/uL (3.8-10.6)
[2020-01-05] MEDS ORDERED: SODIUM CHLORIDE 0.9% 1,000 ML IV ONE (06:15)
[2020-01-05] MEDS ORDERED: ALBUTEROL HFA INHALER INHALATION STA (06:16)
[2020-01-05 06:25] LABS: INR 0.9 (<1.2); Partial Thromboplastin Time 27.5 sec (22.0-30.0); Prothrombin Time 9.4 sec (9.0-12.0)
[2020-01-05] MEDS ORDERED: IBUPROFEN 600 MG TAB PO STA (06:25)
[2020-01-05] MEDS ORDERED: ACETAMINOPHEN TAB 500 MG TAB PO STA (06:25)
[2020-01-05] MEDS: SODIUM CHLORIDE 0.9% 1,000 ML IV SCH ×2 (06:26→22:05)
[2020-01-05 06:27] LABS: Albumin 3.8 g/dL (3.5-5.0); C Reactive Protein 50.1 mg/L (<10.0); Calcium 8.5 mg/dL (8.4-10.2); Magnesium 1.9 mg/dL (1.6-2.3); Potassium 4.1 mmol/L (3.5-5.1); Total Bilirubin 0.5 mg/dL (0.2-1.3); Total Protein 6.8 g/dL (6.3-8.2)
--- NOTE | 2020-01-05 06:28 | ED ---
General Adult HPI - General Chief complaint: Shortness of Breath Stated complaint: SHANAE, Covid + Time Seen by Provider: 01/05/20 06:01 Source: patient, EMS, RN notes reviewed, old records reviewed Mode of arrival: EMS Limitations: no limitations - History of Present Illness Initial comments: Patient is a 69-year-old male who presents emergency department today with complaints of difficulty breathing and chest pain worsening for the past 3 days. Patient reports that he was diagnosed with Covid 19 infection on Tuesday. Patient states that he started to have symptoms on evening of fever and bodyaches. Patient denies nausea or vomiting. He presents that second 2 to the difficulty in breathing. He's been using breathing treatments of his 's history of asthma at home. - Related Data Home Medications Medication Instructions Recorded Confirmed Atorvastatin [Lipitor] 80 mg PO HS 05/17/16 01/02/20 Turmeric Root Extract [Turmeric] 500 mg PO DAILY 05/17/16 01/02/20 Ubidecarenone [Co Q-10] 200 mg PO HS 05/13/17 01/02/20 Metoprolol Tartrate [Lopressor] 25 mg PO AC-BRKFST 01/02/20 01/02/20 Nitroglycerin Sl Tabs [Nitrostat] 0.4 mg SUBLINGUAL Q5M PRN 01/02/20 01/02/20 Previous Rx's Medication Instructions Recorded Aspirin 81 mg PO DAILY #90 08/22/16 calcitrioL [Rocaltrol] 0.25 mcg PO KILGORE cap 08/22/16 Azithromycin [Zithromax Z-pack (6 250 mg PO DIRECTED #6 tab 01/03/20 tabs)] Allergies Allergy/AdvReac Type Severity Reaction Status Date / Time losartan Allergy Rash/Hives Verified 01/02/20 22:57 Review of Systems ROS Statement: Those systems with pertinent positive or pertinent negative responses have been documented in the HPI. ROS Other: All systems not noted in ROS Statement are negative. Past Medical History Past Medical History: Coronary Artery Disease (CAD), Chest Pain / Angina, Hyperlipidemia, Hypertension, Myocardial Infarction ([place]), Osteoarthritis (OA), Renal Disease Additional Past Medical History / Comment(s): decreased kidney function, hemorrhoid., Tinnitus Last Myocardial Infarction Date:: July 2016 History of Any Multi-Drug Resistant Organisms: None Reported Past Surgical History: Heart Catheterization, Heart Catheterization With Stent, Hernia Repair, Orthopedic Surgery, Prostate Surgery Additional Past Surgical History / Comment(s): Izabela rotator cuff, izabela varicose vein stripping, TURP. CARDIAC CATH WITH 3 STENTS @[facility]- 08/17/16. Past Anesthesia/Blood Transfusion Reactions: No Reported Reaction, Motion Sickness Date of Last Stent Placement:: Past Psychological History: No Psychological Hx Reported Smoking Status: Former smoker Past Alcohol Use History: Occasional Past Drug Use History: None Reported - Past Family History Mother Family Medical History: Cancer Additional Family Medical History / Comment(s): COLON CANCER Father Family Medical History: Cancer Additional Family Medical History / Comment(s): STOMACH CANCER General Exam - General Exam Comments Initial Comments: 69-year-old male. Alert and oriented 3. Limitations: no limitations General appearance: alert, in no apparent distress Head exam: Present: atraumatic, normocephalic, normal inspection Eye exam: Present: normal appearance, PERRL, EOMI. Absent: scleral icterus, conjunctival injection, periorbital swelling ENT exam: Present: normal exam, mucous membranes moist Neck exam: Present: normal inspection. Absent: tenderness, meningismus, lymphadenopathy Respiratory exam: Present: wheezes. Absent: normal lung sounds bilaterally, respiratory distress, rales, rhonchi, stridor Cardiovascular Exam: Present: regular rate GI/Abdominal exam: Present: soft, normal bowel sounds. Absent: distended, tenderness, guarding, rebound, rigid Extremities exam: Present: normal inspection, full ROM, normal capillary refill. Absent: tenderness, pedal edema, joint swelling, calf tenderness Back exam: Present: normal inspection Neurological exam: Present: alert, oriented X3, CN II-XII intact Psychiatric exam: Present: normal affect Skin exam: Present: warm, dry, intact, normal color. Absent: rash Course Vital Signs 01/05/20 05:29 Temperature 99.8 F H Pulse Rate 80 Respiratory 20 Rate Blood Pressure 142/86 O2 Sat by Pulse 98 Oximetry EKG Findings - EKG Comments: EKG Findings:: EKG performed at 5:40 AM shows sinus rhythm nonspecific T-wave abnormality. Abnormal EKG. Ventricular rate of 70 bpm. Normal is 180 ms. QS duration is 84 ms. QT QTc is 350/378 ms. Medical Decision Making - Medical Decision Making 69-year-old male former smoker presents with worsening difficulty in breathing after being diagnosed with Coban 3 days ago. Patient was placed on oxygen and was 95% with oxygen at 2L. Patient was given IV fluids labwork obtained. Mildly elevated inflammatory markers including d-dimer. His previously CAT scan showed no signs of PE because glass opacities. Chest x-ray shows to have development of pneumonia increased from his previous chest x-ray 3 days ago. At this time patient's case was discussed with Dr. Sotelo who recommended admission for worsening symptoms. Dr. Sotelo discussed the case with Dr. Sorenson. IV steroids, continue his azithromycin. - Lab Data Result diagrams: 01/05/20 05:59 01/05/20 05:59 Lab Results 01/05/20 01/05/20 01/05/20 Range/Units 05:59 05:59 05:59 WBC 4.8 (3.8-10.6) k/uL RBC 5.09 (4.30-5.90) m/uL Hgb 15.5 (13.0-17.5) gm/dL Hct 45.3 (39.0-53.0) % MCV 89.1 (80.0-100.0) fL MCH 30.5 (25.0-35.0) pg MCHC 34.3 (31.0-37.0) g/dL RDW 12.9 (11.5-15.5) % Plt Count 152 (150-450) k/uL MPV 7.8 Neutrophils % 83 % Lymphocytes % 9 % Monocytes % 4 % Eosinophils % 0 % Basophils % 1 % Neutrophils # 4.0 (1.3-7.7) k/uL Lymphocytes # 0.4 L (1.0-4.8) k/uL Monocytes # 0.2 (0-1.0) k/uL Eosinophils # 0.0 (0-0.7) k/uL Basophils # 0.1 (0-0.2) k/uL PT 9.4 (9.0-12.0) sec INR 0.9 (<1.2) APTT 27.5 (22.0-30.0) sec D-Dimer 1.41 H (<0.60) mg/L FEU Sodium 133 L (137-145) mmol/L Potassium 4.1 (3.5-5.1) mmol/L Chloride 101 (98-107) mmol/L Carbon Dioxide 26 (22-30) mmol/L Anion Gap 6 mmol/L BUN 18 (9-20) mg/dL Creatinine 1.27 H (0.66-1.25) mg/dL Est GFR (CKD-EPI)AfAm 66 (>60 ml/min/1.73 sqM) Est GFR (CKD-EPI)NonAf 57 (>60 ml/min/1.73 sqM) Glucose 114 H (74-99) mg/dL Plasma Lactic Acid [place]coe (0.7-2.0) mmol/L Calcium 8.5 (8.4-10.2) mg/dL Magnesium 1.9 (1.6-2.3) mg/dL Total Bilirubin 0.5 (0.2-1.3) mg/dL AST 68 H (17-59) U/L ALT 34 (4-49) U/L Alkaline Phosphatase 47 (38-126) U/L Lactate Dehydrogenase 986 H (313-618) U/L Troponin I (0.000-0.034) ng/mL C-Reactive Protein 50.1 H (<10.0) mg/L Total Protein 6.8 (6.3-8.2) g/dL Albumin 3.8 (3.5-5.0) g/dL 01/05/20 01/05/20 Range/Units 05:59 05:59 WBC (3.8-10.6) k/uL RBC (4.30-5.90) m/uL Hgb (13.0-17.5) gm/dL Hct (39.0-53.0) % MCV (80.0-100.0) fL MCH (25.0-35.0) pg MCHC (31.0-37.0) g/dL RDW (11.5-15.5) % Plt Count (150-450) k/uL MPV Neutrophils % % Lymphocytes % % Monocytes % % Eosinophils % % Basophils % % Neutrophils # (1.3-7.7) k/uL Lymphocytes # (1.0-4.8) k/uL Monocytes # (0-1.0) k/uL Eosinophils # (0-0.7) k/uL Basophils # (0-0.2) k/uL PT (9.0-12.0) sec INR (<1.2) APTT (22.0-30.0) sec D-Dimer (<0.60) mg/L FEU Sodium (137-145) mmol/L Potassium (3.5-5.1) mmol/L Chloride (98-107) mmol/L Carbon Dioxide (22-30) mmol/L Anion Gap mmol/L BUN (9-20) mg/dL Creatinine (0.66-1.25) mg/dL Est GFR (CKD-EPI)AfAm (>60 ml/min/1.73 sqM) Est GFR (CKD-EPI)NonAf (>60 ml/min/1.73 sqM) Glucose (74-99) mg/dL Plasma Lactic Acid [place] 1.5 (0.7-2.0) mmol/L Calcium (8.4-10.2) mg/dL Magnesium (1.6-2.3) mg/dL Total Bilirubin (0.2-1.3) mg/dL AST (17-59) U/L ALT (4-49) U/L Alkaline Phosphatase (38-126) U/L Lactate Dehydrogenase (313-618) U/L Troponin I <0.012 (0.000-0.034) ng/mL C-Reactive Protein (<10.0) mg/L Total Protein (6.3-8.2) g/dL Albumin (3.5-5.0) g/dL - Radiology Data Radiology results: report reviewed Computed tomography on 01/02 shows no pulmonary embolus. Scattered reticular groundglass opacities seen throughout the right lung lesser extent lingula and left lower lobe. Likely infectious including Covid 19. Chest x-ray shows correlate for pneumonia. Disposition Clinical Impression: COVID-19, Pneumonia Disposition: ADMITTED IP TO THIS HOSP Condition: Stable Is patient prescribed a controlled substance at d/c from ED?: No Referrals: Dale Rooney DO [Primary Care Provider] - 1-2 days Time of Disposition: 08:15
[2020-01-05 06:37] LABS: D-Dimer 1.41 mg/L FEU (<0.60)
--- NOTE | 2020-01-05 07:41 | XR ---
EXAMINATION TYPE: XR chest 1V portable DATE OF EXAM: 01/05/2020 COMPARISON: Prior chest x-ray 01/02/2020 HISTORY: Covid 19 pneumonia, difficulty breathing TECHNIQUE: Single frontal view of the chest is obtained. FINDINGS: Patchy density is present in the right upper lobe, possibly right lower lobe. Patient is r otated. No pneumothorax or pleural effusion. Heart size is stable. IMPRESSION: Correlate for pneumonia.
[2020-01-05] MEDS ORDERED: NITROGLYCERIN SL TABS 0.4 MG TAB SUBLINGUAL PRN (08:17)
[2020-01-05] MEDS: DEXAMETHASONE SOD PHOSPHATE 10 MG/ML 1 ML VIAL IV SCH (08:51)
[2020-01-05] MEDS: AZITHROMYCIN 250 MG TAB PO SCH (08:54)
[2020-01-05] MEDS ORDERED: ENOXAPARIN 40 MG/0.4 ML SYRINGE SQ SCH (09:00)
[2020-01-05] MEDS ORDERED: NON FORMULARY DRUG (Turmeric Root Extract [Turmeric] 500 MG Capsule) PO SCH (09:00)
[2020-01-05] MEDS: ASPIRIN 81 MG PO SCH (09:01)
[2020-01-05 10:14] LABS: Ferritin 701.6 ng/mL (22.0-322.0)
[2020-01-05] MEDS: ALBUTEROL HFA INHALER INHALATION SCH ×2 (13:57→20:14)
[2020-01-05] MEDS: ACETAMINOPHEN TAB 500 MG TAB PO PRN ×2 (15:58→18:29)
--- NOTE | 2020-01-05 15:58 | P.HPIM ---
History of Present Illness 69-year-old the aquilino male came in with complaints of shortness of breath chest pain going on for 3 days and patient has joined generalized bodyaches fever. Patient is diagnosed with the Coban 19 infection patient is started on D ecadron is admitted to the hospital patient denied any fever chills.. patient is unable to bring up much chest x-ray is suspicious for pneumonia on the right side.his d-dimer is 1.41 has other elevated inflammatory markers including ferritin and lack LDHlong with elevated pro calcitonin which was mildly elevated. Review of Systems REVIEW OF SYSTEMS: CONSTITUTIONAL: as mentioned in HPI HEENT: No recent visual problems or hearing problems. Denied any sore throat. CARDIOVASCULAR: No chest pain, orthopnea, PND, no palpitations, no syncope. PULMONARY: no hemoptysis. GASTROINTESTINAL: No diarrhea, no nausea, no vomiting, no abdominal pain. NEUROLOGICAL: No headaches, no weakness, no numbness. HEMATOLOGICAL: Denies any bleeding or petechiae. GENITOURINARY: Denies any burning micturition, frequency, or urgency. MUSCULOSKELETAL/RHEUMATOLOGICAL: Denies any joint pain, swelling, or any muscle pain. ENDOCRINE: Denies any polyuria or polydipsia. The rest of the 14-point review of systems is negative. Past Medical History Past Medical History: Coronary Artery Disease (CAD), Chest Pain / Angina, Hyperlipidemia, Hypertension, Myocardial Infarction ([place]), Osteoarthritis (OA), Renal Disease Additional Past Medical History / Comment(s): decreased kidney function, hemorrhoid., Tinnitus Last Myocardial Infarction Date:: July 2016 History of Any Multi-Drug Resistant Organisms: None Reported Past Surgical History: Heart Catheterization, Heart Catheterization With Stent, Hernia Repair, Orthopedic Surgery, Prostate Surgery Additional Past Surgical History / Comment(s): Abel rotator cuff, abel varicose vein stripping, TURP. CARDIAC CATH WITH 3 STENTS @[facility]- 08/17/16. Past Anesthesia/Blood Transfusion Reactions: No Reported Reaction, Motion Sickness Date of Last Stent Placement:: Past Psychological History: No Psychological Hx Reported Smoking Status: Former smoker Past Alcohol Use History: Occasional Additional Past Alcohol Use History / Comment(s): QUIT SMOKING 30 YEARS AGO. (1987). SMOKED 20 YEARS Past Drug Use History: None Reported - Past Family History Mother Family Medical History: Cancer Additional Family Medical History / Comment(s): COLON CANCER Father Family Medical History: Cancer Additional Family Medical History / Comment(s): STOMACH CANCER Medications and Allergies Home Medications Medication Instructions Recorded Confirmed Type Atorvastatin [Lipitor] 80 mg PO HS 05/17/16 01/05/20 History Turmeric Root Extract [Turmeric] 500 mg PO DAILY 05/17/16 01/05/20 History Aspirin 81 mg PO DAILY #90 08/22/16 01/05/20 Rx calcitrioL [Rocaltrol] 0.25 mcg PO KILGORE cap 08/22/16 01/05/20 Rx Ubidecarenone [Co Q-10] 200 mg PO HS 05/13/17 01/05/20 History Metoprolol Tartrate [Lopressor] 25 mg PO AC-BRKFST 01/02/20 01/05/20 History Nitroglycerin Sl Tabs [Nitrostat] 0.4 mg SUBLINGUAL Q5M PRN 01/02/20 01/05/20 History Azithromycin [Zithromax Z-pack (6 See Taper PO DIRECTED 01/05/20 01/05/20 H istory tabs)] Allergies Allergy/AdvReac Type Severity Reaction Status Date / Time losartan Allergy Rash/Hives Verified 01/05/20 08:57 Physical Exam Vitals: Vital Signs Temp Pulse Pulse Resp BP BP Pulse Ox 01/05/20 11:34 97.9 F 70 18 126/70 99 01/05/20 09:01 67 18 128/75 95 01/05/20 05:29 99.8 F H 80 20 142/86 98 Intake and Output 01/05/20 01/05/20 01/05/20 06:59 14:59 22:59 Other: Voiding Method Toilet # Voids 1 Weight 77.111 kg 77.111 kg PHYSICAL EXAMINATION: GENERAL: The patient is alert and oriented x3, not in any acute distress. Well developed, well nourished. HEENT: Pupils are round and equally reacting to light. EOMI. No scleral icterus. No conjunctival pallor. Normocephalic, atraumatic. No pharyngeal erythema. No thyromegaly. CARDIOVASCULAR: S1 and S2 present. No murmurs, rubs, or gallops. PULMONARY: Chest is clear to auscultation, no wheezing or crackles. ABDOMEN: Soft, nontender, nondistended, normoactive bowel sounds. No palpable organomegaly. MUSCULOSKELETAL: No joint swelling or deformity. EXTREMITIES: No cyanosis, clubbing, or pedal edema. NEUROLOGICAL: Gross neurological examination did not reveal any focal deficits. SKIN: No rashes. Results CBC & Chem 7: 01/05/20 05:59 01/05/20 05:59 Labs: Abnormal Lab Results - Last 24 Hours (Table) 01/05/20 01/05/20 01/05/20 Range/Units 05:59 05:59 05:59 Lymphocytes # 0.4 L (1.0-4.8) k/uL D-Dimer 1.41 H (<0.60) mg/L FEU Sodium 133 L (137-145) mmol/L Creatinine 1.27 H (0.66-1.25) mg/dL Glucose 114 H (74-99) mg/dL Ferritin 701.6 H (22.0-322.0) ng/mL AST 68 H (17-59) U/L Lactate Dehydrogenase 986 H (313-618) U/L C-Reactive Protein 50.1 H (<10.0) mg/L Procalcitonin (0.02-0.09) ng/mL 01/05/20 Range/Units 05:59 Lymphocytes # (1.0-4.8) k/uL D-Dimer (<0.60) mg/L FEU Sodium (137-145) mmol/L Creatinine (0.66-1.25) mg/dL Glucose (74-99) mg/dL Ferritin (22.0-322.0) ng/mL AST (17-59) U/L Lactate Dehydrogenase (313-618) U/L C-Reactive Protein (<10.0) mg/L Procalcitonin 0.15 H (0.02-0.09) ng/mL Thrombosis Risk Factor Assmnt - Choose All That Apply Each Risk Factor Represents 2 Points: Age 61-74 years Other congenital or acquired thrombophilia - If yes, enter type in comment: No Thrombosis Risk Factor Assessment Total Risk Factor Score: 2 Thrombosis Risk Factor Assessment Level: Low Risk Assessment and Plan Plan: Covid 19 infection/pneumonia: Continue with Decadron pulmonology was consulted. Clinical monitoring.she will be can you done Pepcid we'll use heparin for DVT prophylaxis patient has elevated creatinine of 1.27 -Chronic kidney diseasestage 2-3 patient creatinine is at her be at his baseline now -Hyponatremia probably hypovolemic hyponatremia gentle hydration -Coronary artery disease -Hypertension -Hyperlipidemia
[2020-01-05 17:04] LABS: Basophils % (A) 0 %; Eosinophils % (A) 0 %; HCT 41.7 % (39.0-53.0); HGB 14.2 gm/dL (13.0-17.5); Lymphocytes # (A) 0.5 k/uL (1.0-4.8); Lymphocytes % (A) 9 %; MCH 31.1 pg (25.0-35.0); MCHC 34.1 g/dL (31.0-37.0); Mean Platelet Volume 7.8; Monocytes # (A) 0.2 k/uL (0-1.0); Monocytes % (A) 4 %; Neutrophils # (A) 4.6 k/uL (1.3-7.7); Neutrophils % (A) 85 %; Platelet Count 139 k/uL (150-450); RBC 4.58 m/uL (4.30-5.90); RDW 13.1 % (11.5-15.5); WBC 5.3 k/uL (3.8-10.6)
[2020-01-05] MEDS ORDERED: NON FORMULARY DRUG (Ubidecarenone [Co Q-10] 100 MG Capsule) PO SCH (21:00)
[2020-01-05] MEDS: MELATONIN 1 MG TAB PO SCH (22:05)
[2020-01-05] MEDS: ATORVASTATIN 80 MG TAB PO SCH (22:05)
[2020-01-05] MEDS: HYDROcodone/APAP 5-325MG 1 EACH TAB PO PRN (22:05)
[2020-01-05 23:39] LABS: African American GFR (CKD) 64.1 (60.0-200.0); Anion Gap 5.6 mmol/L (4.00-12.00); BUN/Creat Ratio 14.62 Ratio (12.00-20.00); Calcium 7.6 mg/dL (8.7-10.3); Carbon Dioxide 25.4 mmol/L (21.6-31.8); Non-African American GFR(CKD) 55.3 (60.0-200.0)
[2020-01-05] MEDS: HEPARIN SODIUM,PORCINE 5,000 UNIT/ML 1 ML VIAL SQ SCH (23:46)
[2020-01-06] MEDS: ACETAMINOPHEN TAB 500 MG TAB PO PRN (05:25)
[2020-01-06] MEDS: HYDROcodone/APAP 5-325MG 1 EACH TAB PO PRN ×2 (05:26→20:32)
[2020-01-06] MEDS: SODIUM CHLORIDE 0.9% 1,000 ML IV SCH (06:08)
[2020-01-06] MEDS: ALBUTEROL HFA INHALER INHALATION SCH ×4 (06:42→20:27)
[2020-01-06] MEDS: METOPROLOL TARTRATE 25 MG TAB PO SCH (07:33)
[2020-01-06] MEDS: ASPIRIN 81 MG PO SCH (07:33)
[2020-01-06] MEDS: HEPARIN SODIUM,PORCINE 5,000 UNIT/ML 1 ML VIAL SQ SCH ×3 (07:33→23:50)
[2020-01-06] MEDS: DEXAMETHASONE SOD PHOSPHATE 10 MG/ML 1 ML VIAL IV SCH (07:33)
[2020-01-06] MEDS: AZITHROMYCIN 250 MG TAB PO SCH (07:34)
--- NOTE | 2020-01-06 10:38 | CONS ---
CONSULTATION PULMONARY/CRITICAL CARE CONSULTATION: DATE OF SERVICE: January 05, 2020. REASON FOR CONSULTATION: Shortness of breath and Covid infection HISTORY OF PRESENT ILLNESS: This is a 69-year-old male who presented to the emergency department on January 04 at 5:23 complaining of shortness of breath. The patient's shortness of breath has been going on for about 3 or 4 days. He apparently was diagnosed with Covid-19 infection on last Tuesday, about a week ago. The patient states that initially he was not feeling well poorly. More recently, a couple days ago on , he started having fever and body aches. He denied any chest pain or chest discomfort. He did start having some shortness of breath and chest congestion. He was coughing. Not producing any phlegm. The patient stated he was trying to stay at home and but because the shortness of breath got so much more severe, he had to come in to be evaluated. Currently, the patient is on nasal O2 at 2 L. Saturations 99%. His T-max is 103. CURRENT HOME MEDICATIONS: Include Lipitor, turmeric, coenzyme Q, Lopressor, Nitrostat. He has also takes aspirin, Rocaltrol, and he apparently was prescribed a Z-Elieser. ALLERGIES: LOSARTAN. MEDICAL HISTORY: CAD, angina, hyperlipidemia, hypertension, myocardial infarction, osteoarthritis, and impaired kidney function. He also has a history of hemorrhoids, and ringing in the ears. His last myocardial infarction was in 2017. SURGICAL HISTORY: Includes heart catheterization with stent, hernia repair, bilateral rotator cuff surgery, bilateral varicose vein stripping, and TURP. SOCIAL HISTORY: Positive for previous tobacco use. He drinks occasionally. Denies any illicit drug use. FAMILY HISTORY: Positive for mother with colon cancer and a father with stomach cancer. REVIEW OF SYSTEMS: CONSTITUTIONAL: Fever, weakness, muscle aches. NEUROLOGIC negative. HEENT negative. CARDIOVASCULAR negative. PULMONARY: Shortness of breath, chest congestion, cough. GI negative. negative. RHEUMATOLOGIC negative. IMMUNOLOGIC negative. ENDOCRINOLOGIC negative. DERMATOLOGIC negative. PHYSICAL EXAMINATION: VITAL SIGNS: Current vital signs are reviewed. Temperature is 103, heart rate 70, respiratory rate 18, blood pressure 126/70, mean 88, 2 L saturation 99%. GENERAL: Appears in no acute distress. HEENT: Examination is grossly unremarkable. Nasal O2 noted. NECK: Supple. Full range of motion. No adenopathy. Neck veins are flat. CARDIOVASCULAR: Examination reveals regular rhythm and rate. Heart rate 70 beats per minute. S1, S2 normal. LUNGS: Reveal diffuse coarse rhonchi. Breath sounds are diminished. There is prolongation. ABDOMEN: Soft. Bowel sounds are heard. EXTREMITIES are intact. No cyanosis, clubbing, or edema. SKIN: Without rash. NEUROLOGIC: Examination is nonfocal. LABS: Reviewed. White count 5.3, hemoglobin 14.2, hematocrit 41.7, platelet count 139,000. PT 9.44, INR 0.9, PTT 27.5. D-dimer 1.41. Sodium 133, potassium 4.1 chloride 101, CO2 26, anion gap is 6. BUN and creatinine were 18 and 1.27 respectively. Ferritin 7 and 1.6. AST 68. LDH 986. C-reactive protein 50.1. Procalcitonin 0.15. Microbiology is currently negative or pending. Chest x-ray shows some patchy infiltrates particularly in the right upper lobe and right lower lobe. Left lung is mostly clear. Medications are reviewed. Currently, he is on Tylenol, albuterol inhaler, aspirin, Lipitor, Zithromax, Rocaltrol, Decadron, subcu heparin, [place], melatonin, metoprolol, sublingual nitroglycerin, and saline IV. ASSESSMENT: 1. COVID-19 pneumonia. 2. Mild hypoxemic respiratory failure. 3. Coronary artery disease, status post heart catheterization with stent. 4. Angina pectoris. 5. Hyperlipidemia. 6. History of myocardial infarction. 7. Degenerative joint disease. 8. Chronic kidney disease. PLAN: Medications are appropriate. We will continue to follow. Prognosis is guarded. We will repeat a chest x-ray, and inflammatory markers as needed. No additional recommendations are made. Prognosis is guarded. MMODL / IJN: [id number] /
--- NOTE | 2020-01-06 10:39 | P.PN ---
Subjective 69-year-old the aquilino male came in with complaints of shortness of breath chest pain going on for 3 days and patient has joined generalized bodyaches fever. Patient is diagnosed with the Coban 19 infection patient is started on Decadron is admitted to the hospital patient denied any fever chills.. patient is unable to bring up much chest x-ray is suspicious for pneumonia on the right side.his d-dimer is 1.41 has other elevated inflammatory markers including ferritin and lack LDHlong with elevated pro calcitonin which was mildly elevated. 01/06/2020 Saturating at 93% on 2 L patient is still having high-grade fevers although feeling bit better. Constitutional: Denied any fatigue denied any fever. Cardio vascular: denied any chest pain, palpitations Gastrointestinal denied any nausea vomiting Pulmonary: Denied any shortness of breath cough Neurologic denied any new focal deficits All inpatient medications were reviewed and appropriate changes in these medications as dictated in the interval history and assessment and plan. Objective - Vital Signs Vital signs: Vital Signs Temp 99.9 F H 01/06/20 07:42 Pulse 87 01/06/20 05:21 Resp 20 01/06/20 05:21 BP 149/81 01/06/20 05:21 Pulse Ox 93 L 01/06/20 05:21 Intake & Output 01/05/20 01/06/20 01/06/20 18:59 06:59 18:59 Output Total 400 Balance -400 Weight 77.111 kg Output: Urine 400 Other: Voiding Method Toilet Toilet Urinal # Voids 1 1 - Exam PHYSICAL EXAMINATION: GENERAL: The patient is alert and oriented x3, not in any acute distress. Well developed, well nourished. HEENT: Pupils are round and equally reacting to light. EOMI. No scleral icterus. No conjunctival pallor. Normocephalic, atraumatic. No pharyngeal erythema. No thyromegaly. CARDIOVASCULAR: S1 and S2 present. No murmurs, rubs, or gallops. PULMONARY: Chest is clear to auscultation, no wheezing or crackles. ABDOMEN: Soft, nontender, nondistended, normoactive bowel sounds. No palpable organomegaly. MUSCULOSKELETAL: No joint swelling or deformity. EXTREMITIES: No cyanosis, clubbing, or pedal edema. NEUROLOGICAL: Gross neurological examination did not reveal any focal deficits. SKIN: No rashes. - Labs CBC & Chem 7: 11/14/20 16:44 01/05/20 16:44 Labs: Abnormal Lab Results - Last 24 Hours (Table) 01/05/20 01/05/20 01/05/20 Range/Units 05:59 16:44 16:44 Plt Count 139 L (150-450) k/uL Lymphocytes # 0.5 L (1.0-4.8) k/uL Est GFR (CKD-EPI)NonAf 55.3 L (60.0-200.0) Glucose 113 H (70-110) mg/dL Calcium 7.6 L (8.7-10.3) mg/dL Procalcitonin 0.15 H (0.02-0.09) ng/mL Microbiology - Last 24 Hours (Table) 01/05/20 05:59 Blood Culture - Preliminary Blood No Growth after 24 hours Assessment and Plan Plan: Covid 19 infection/pneumonia: Continue with Decadron pulmonology was consulted. Clinical monitoring.she will be can you done Pepcid we'll use heparin for DVT prophylaxis patient has elevated creatinine of 1.3 -Chronic kidney diseasestage 2-3 patient creatinine is at her be at his baseline now which is around 1.3 -Hyponatremia probably hypovolemic hyponatremia bruit IV hydration IV fluids will be discontinued -Coronary artery disease -Hypertension -Hyperlipidemia
[2020-01-06] MEDS: MELATONIN 1 MG TAB PO SCH (20:26)
[2020-01-06] MEDS: ATORVASTATIN 80 MG TAB PO SCH (20:26)
--- NOTE | 2020-01-06 23:25 | PN ---
PROGRESS NOTE PULMONARY/CRITICAL CARE PROGRESS NOTE: DATE OF SERVICE: January 06, 2020 This is a 69-year-old gentleman who was seen in consultation yesterday. He presented to the emergency department on January 04 complaining of shortness of breath. The shortness of breath has been going on for about 3 or 4 days and getting worse. He was diagnosed with COVID-19 infection about a week ago last Tuesday. Apparently, the patient was not feeling well and started feeling more poorly as the week progressed and that is why he decided to be seen in the emergency room. In addition, he started having fever and body aches. He denied any chest pain or chest discomfort. Currently doing reasonably well. PHYSICAL EXAMINATION: He is currently on O2 at 2 L. He still has a temperature. T-max 102.6, heart rate 87, respiratory rate 20, blood pressure 149/81 with a mean of 103. GENERAL: He appears is no acute distress. There is no conversational dyspnea, use of accessory muscles or audible wheezing. HEENT: Examination is grossly unremarkable. NECK: Supple. Full range of motion. No adenopathy. Neck veins are flat. CARDIOVASCULAR: Examination reveals regular rhythm and rate. Heart rate 87 beats per minute. S1, S2 normal. No S3, S4, or murmur. LUNGS: Reveal a few scattered rhonchi. No wheezes or crackles. Breath sounds are equal. ABDOMEN: Soft. Bowel sounds are heard. EXTREMITIES: Are intact. No cyanosis, clubbing, or edema. SKIN: Without rash. NEUROLOGIC: Examination is nonfocal. LABS: Labs are reviewed. White count 5.3, hemoglobin 14.2, hematocrit 41.7, platelet count 139,000. These are labs from yesterday. No new labs from today. Microbiology is negative. Chest x-ray from the shows patchy right upper lobe and right lower lobe abnormality. MEDICATIONS: Medications are reviewed. Currently, the patient is on Tylenol, albuterol inhaler, aspirin, Zithromax, Rocaltrol, Decadron, subcu heparin, [place], melatonin, metoprolol, and sublingual nitroglycerin. ASSESSMENT: 1. COVID-19 pneumonia, with mild hypoxemic respiratory failure, stable. 2. Coronary artery disease, status post heart catheterization with stent. 3. Angina pectoris. 4. Hyperlipidemia. 5. History of previous myocardial infarction. 6. Degenerative joint disease. 7. Chronic kidney disease. PLAN: Currently, the patient seems to be doing relatively well. He seems very stable. His breathing is improved. He denies any chest pain or chest discomfort. He is not coughing up any phlegm. He is mildly short of breath particularly with exertion. He has been going without his oxygen recently. We will continue to follow. MMODL / IJN: [id number] /
[2020-01-07 00:54] VITALS: RESP 18
[2020-01-07] MEDS: ALBUTEROL HFA INHALER INHALATION SCH ×3 (02:56→16:08)
[2020-01-07] MEDS: HYDROcodone/APAP 5-325MG 1 EACH TAB PO PRN (03:56)
[2020-01-07] MEDS: ASPIRIN 81 MG PO SCH (10:20)
[2020-01-07] MEDS: METOPROLOL TARTRATE 25 MG TAB PO SCH (10:20)
[2020-01-07] MEDS: DEXAMETHASONE SOD PHOSPHATE 10 MG/ML 1 ML VIAL IV SCH (10:21)
[2020-01-07] MEDS: HEPARIN SODIUM,PORCINE 5,000 UNIT/ML 1 ML VIAL SQ SCH (10:21)
[2020-01-07] MEDS: AZITHROMYCIN 250 MG TAB PO SCH (10:23)
[2020-01-07] MEDS: ACETAMINOPHEN TAB 500 MG TAB PO PRN (10:25)
--- NOTE | 2020-01-07 12:44 | CDI ---
Documentation Clarification Form Date: 01/07/2020 12:22:12 PM From: Lou Lovell RN, CCDS Admit Date: 01/05/2020 08:07:00 AM Patient Name: Emmanuel Fitzpatrick Visit Number: [id number] Discharge Date: ATTENTION: The Clinical Documentation Specialists (CDI) and [facility] Coding Staff appreciate your assistance in clarifying documentation. Please respond to the clarification below the line at the bottom and electronically sign. The CDI & [facility] Coding staff will review the response and follow-up if needed. Please note: Queries are made part of the Legal Health Record. If you have any questions, please contact the author of this message via ITS. Dr. Laith Burns The patient presented with difficulty breathing.01/05 mild hypoxemic respiratory failure is documented. Please provide the acuity for mild hypoxemic respiratory failure. History/Risk Factors: Coronary artery disease, Angina, Hypertension CKD, Former smoker Clinical Indicators: 69-year-old male present to ED on 01/04 with complaints of shortness of breath. He was diagnosed with Covid-19 infection on Tuesday,01/03. He has been using his breathing treatments at home. 01/04 Vital signs:142/86 80 20 99.895 % 2/L NC 01/04 CXR: developing pneumonia increased from his previous chest x-ray 3 days ago. 01/05 at 05:21 Vital signs: 149/81 87 20 102.6 93 % 2/L NC 01/05 Lung/Breathing assessment: diffuse coarse rhonchi. 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 Acute Hypoxemic Respiratory Failure Acute on Chronic Hypoxemic Respiratory Failure Other Diagnosis, please specify Unable to determine Specificity: If known, further specify (if known): With hypercapnia? (pCO2 >50 and pH <7.35) With hypoxia? (pO2 <60 mm Hg or SpO2 <91% on room air) (Last Query Form Revision: October 2018) MTDD
[2020-01-07 13:13] VITALS: BP 143/83; PULSE 67; TEMP 98.1
--- NOTE | 2020-01-07 15:42 | P.DS ---
Providers Date of admission: 01/05/20 08:07 Expected date of discharge: 01/07/20 Attending physician: Eusebia Sorenson Consults: 01/05/20 08:49 Consult Physician Stat Consulting Provider: Laith Burns Reason/Comments: covid, pneumonia Do you want consulting provider notified?: Yes Primary care physician: Dale Quispe [facility] Course: Final diagnosis -Covid 19 infection/pneumonia -Chronic kidney disease stage 2-3 -Hyponatremia probably hypovolemic hyponatremia -Coronary artery disease -Hypertension -Hyperlipidemia Discharge disposition Patient is being discharged in a stable condition with guarded prognosis to home. Patient will follow-up with Dr. Quispe in the outpatient setting upon discharge. Patient is to continue with oral dexamethasone 6 mg daily for the next 6 days to complete the course along with albuterol inhaler every 4-6 hours as needed. A prescription was provided for repeat Covid testing in 10 days. Total time taken is greater than 35 minutes. History of present illness This is a 69-year-old female who was recently admitted with shortness of breath, weakness, and generalized body aches and diagnosed with Covid 19 infection and was being closely monitored. Patient was initiated on dexamethasone along with antibiotics and will continue in outpatient setting to complete the course. During hospitalization patient was requiring oxygen and was being followed by pulmonary. Patient is currently maintaining oxygen saturations on room air and will continue with the inhaler as needed for shortness of breath. A prescripti on was also provided for repeat testing for Covid 19 in 10 days. Patient instructed to continue to quarantine for another 10 days and until symptom-free. Patient will follow-up with primary care provider in the outpatient setting. Currently no reports of chest pain, worsening shortness of breath, or palpitations. Patient is afebrile. No reports of nausea or vomiting and patient is tolerating diet. Patient anticipating discharge today. On exam vital signs are stable. Temp is 98.1F, pulse is 67, respirations are 18, blood pressure is 143/83, oxygen saturation is 94% on room air. Cardio S1, S2 are muffled. Respiratory system shows diminished breath sounds at the bases with no wheezing or rhonchi noted. Abdomen is soft and nontender. Nervous system shows no focal deficits. Please refer to medication reconciliation sheet for a list of medications. Patient Condition at Discharge: Stable Plan - Discharge Summary Discharge Rx Participant: No New Discharge Prescriptions: New Dexamethasone [Decadron] 6 mg PO DAILY 7 Days #7 tablet Acetaminophen Tab [Tylenol] 1,000 mg PO Q6HR PRN #30 tab PRN Reason: Fever>101 Albuterol Inhaler [Ventolin Hfa Inhaler] 2 puff INHALATION RT-TID 30 Days #1 puff Continue Atorvastatin [Lipitor] 80 mg PO HS Turmeric Root Extract [Turmeric] 500 mg PO DAILY Aspirin 81 mg PO DAILY #90 calcitrioL [Rocaltrol] 0.25 mcg PO [place] cap Ubidecarenone [Co Q-10] 200 mg PO HS Nitroglycerin Sl Tabs [Nitrostat] 0.4 mg SUBLINGUAL Q5M PRN PRN Reason: Chest Pain Metoprolol Tartrate [Lopressor] 25 mg PO AC-BRKFST Discontinued Azithromycin [Zithromax Z-pack (6 tabs)] See Taper PO DIRECTED Discharge Medication List Atorvastatin [Lipitor] 80 mg PO HS 05/17/16 [History] Turmeric Root Extract [Turmeric] 500 mg PO DAILY 05/17/16 [History] Aspirin 81 mg PO DAILY #90 08/22/16 [Rx] calcitrioL [Rocaltrol] 0.25 mcg PO [place] cap 08/22/16 [Rx] Ubidecarenone [Co Q-10] 200 mg PO HS 05/13/17 [History] Metoprolol Tartrate [Lopressor] 25 mg PO AC-BRKFST 01/02/20 [History] Nitroglycerin Sl Tabs [Nitrostat] 0.4 mg SUBLINGUAL Q5M PRN 01/02/20 [History] Acetaminophen Tab [Tylenol] 1,000 mg PO Q6HR PRN #30 tab 01/07/20 [Rx] Albuterol Inhaler [Ventolin Hfa Inhaler] 2 puff INHALATION RT-TID 30 Days #1 puff 01/07/20 [Rx] Dexamethasone [Decadron] 6 mg PO DAILY 7 Days #7 tablet 01/07/20 [Rx] Follow up Appointment(s)/Referral(s): Dale Quispe DO [Primary Care Provider] - 01/10/20 1:00 pm (patient will have a virtual appt.) Ambulatory/Diagnostic Orders: Coronavirus SARS CoV-2 by PCR [LAB.AMB] Time Frame: 10 Days, Facility: [facility], 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
--- NOTE | 2020-01-07 15:47 | P.PN ---
Subjective Progress Note Date: 01/07/20 Principal diagnosis: COVID 19 pneumonia 69-year-old white male patient who was admitted to hospital on 01/05/2020 when he presented to the emergency department complaining of shortness of breath, and patient had the outpatient test for coronary 19 which was positive for a week ago last Tuesday. Symptoms have progressed, patient was feeling poorly, he started developing fever and body aches, but no chest pain or chest discomfort. His admission chest x-ray showed patchy right upper lobe and a right lower lobe abnormality. Patient was started on oral Decadron, azithromycin. The patient in follow-up, room air pulse ox of 94%, his been afebrile, last episode of fever was yesterday morning at 7:00, with a temp of 98.8F, he has remained afebrile, no specific complaints, no worsening dyspnea, lab work has been reviewed, lymphocyte count was 0.5, d-dimer is 1.41, electrolytes are within normal limits, BUN was 19, creatinine is 1.3, his initial LDH was 986, CRP was 50.1, troponin was negative at less than 0.012, pro calcitonin was 0.15. Vital signs have been stable overnight Objective - Vital Signs Vital signs: Vital Signs Temp 98.1 F 01/07/20 13:00 Pulse 67 01/07/20 13:00 Resp 18 01/07/20 13:00 BP 143/83 01/07/20 13:00 Pulse Ox 94 L 01/07/20 13:00 Intake & Output 01/06/20 01/07/20 01/07/20 18:59 06:59 18:59 Intake Total 700 600 Output Total 700 Balance -700 700 600 Intake: Oral 700 600 Output: Urine 700 Other: Voiding Method Toilet Toilet Toilet Urinal Urinal Urinal # Voids 2 2 - Exam GENERAL EXAM: Alert, very pleasant, 69-year-old white male, on room air, with a pulse ox of 94% comfortable in no apparent distress. HEAD: Normocephalic/atraumatic. EYES: Normal reaction of pupils, equal size. Conjunctiva pink, sclera white. NOSE: Clear with pink turbinates. THROAT: No erythema or exudates. NECK: No masses, no JVD, no thyroid enlargement, no adenopathy. CHEST: No chest wall deformity. Symmetrical expansion. LUNGS: Equal air entry with no crackles, wheeze, rhonchi or dullness. CVS: Regular rate and rhythm, normal S1 and S2, no gallops, no murmurs, no rubs ABDOMEN: Soft, nontender. No hepatosplenomegaly, normal bowel sounds, no guarding or rigidity. EXTREMITIES: No clubbing, no edema, no cyanosis, 2+ pulses and upper and lower extremities. MUSCULOSKELETAL: Muscle strength and tone normal. SPINE: No scoliosis or deformity SKIN: No rashes CENTRAL NERVOUS SYSTEM: Alert and oriented -3. No focal deficits, tone is normal in all 4 extremities. PSYCHIATRIC: Alert and oriented -3. Appropriate affect. Intact judgment and insight. - Labs CBC & Chem 7: 01/05/20 16:44 01/05/20 16:44 Labs: Microbiology - Last 24 Hours (Table) 01/05/20 05:59 Blood Culture - Preliminary Blood No Growth after 48 hours Assessment and Plan Plan: Assessment: #1. Coumadin 19 related pneumonia, with mild hypoxic respiratory failure, stable #2. Coronary artery disease, with previous stenting #3. History of angina pectoris #4. Hyperlipidemia #5. History of previous myocardial infarction #6. Degenerative joint disease, #7. Chronic kidney disease, unspecified Plan: Patient has remained stable in the last 24 hours, no fever or chills, he is on room air, no worsening dyspnea cough. Continue on Decadron for a total of 10 days including the hospital days, patient can be considered for discharge home today. If he develops worsening dyspnea on worsening hypoxemia he is to return to the emergency department I performed a history & physical examination of the patient and discussed their management with my nurse practitioner, Mayela Artis. I reviewed the nurse practitioner's note and agree with the documented findings and plan of care. Lung sounds are positive for diminished breath sounds. The findings and the impression was discussed with the patient. I attest to the documentation by the nurse practitioner. Time with Patient: Less than 30
--- NOTE | 2020-01-11 08:59 | CDI ---
Documentation Clarification Form Date: 01/07/2020 12:22:00 PM From: Lou Lovell RN, CCDS Phone: [phone] Admit Date: 01/05/2020 08:07:00 AM Patient Name: Emmanuel Fitzpatrick Visit Number: [id number] Discharge Date: 01/07/2020 02:30:00 PM ATTENTION: The Clinical Documentation Specialists (CDI) and [facility] Coding Staff appreciate your assistance in clarifying documentation. Please respond to the clarification below the line at the bottom and electronically sign. The CDI & [facility] Coding staff will review the response and follow-up if needed. Please note: Queries are made part of the Legal Health Record. If you have any questions, please contact the author of this message via ITS. Dr. Laith Burns The patient presented with difficulty breathing.01/05 mild hypoxemic respiratory failure is documented. Please provide the acuity for mild hypoxemic respiratory failure. History/Risk Factors: Coronary artery disease, Angina, Hypertension CKD, Former smoker Clinical Indicators: 69-year-old male present to ED on 01/04 with complaints of shortness of breath. He was diagnosed with Covid-19 infection on Tuesday,01/03. He has been using his breathing treatments at home. 01/04 Vital signs:142/86 80 20 99.895 % 2/L NC 01/04 CXR: developing pneumonia increased from his previous chest x-ray 3 days ago. 01/05 at 05:21 Vital signs: 149/81 87 20 102.6 93 % 2/L NC 01/05 Lung/Breathing assessment: diffuse coarse rhonchi. 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 Acute Hypoxemic Respiratory Failure Acute on Chronic Hypoxemic Respiratory Failure Other Diagnosis, please specify Unable to determine Specificity: If known, further specify (if known): With hypercapnia? (pCO2 >50 and pH <7.35) With hypoxia? (pO2 <60 mm Hg or SpO2 <91% on room air) (Last Query Form Revision: October 2018) Acute hypoxemic respiratory failure_ MTDD
== END 2020-01-07 14:30 | disposition home or self-care (01) | DRG 177 ==
LOC: EC 05:23 → 4SSUR 08:07 → 6NMEDSUR 10:59
PROVIDERS: ADMIT Internal Medicine; ATTEND Internal Medicine
DX: U07.1 COVID-19 (principal); J12.89 Other viral pneumonia; J96.01 Acute respiratory failure with hypoxia; E87.1 Hypo-osmolality and hyponatremia; N18.30 Chronic kidney disease, stage 3 unspecified; I25.10 Atherosclerotic heart disease of native coronary artery without angina pectoris; I12.9 Hypertensive chronic kidney disease with stage 1 through stage 4 chronic kidney disease, or unspecified chronic kidney disease; E78.5 Hyperlipidemia, unspecified; E86.1 Hypovolemia; M19.90 Unspecified osteoarthritis, unspecified site; Z79.82 Long term (current) use of aspirin; Z79.899 Other long term (current) drug therapy; Z88.8 Allergy status to other drugs, medicaments and biological substances; I25.2 Old myocardial infarction; Z80.0 Family history of malignant neoplasm of digestive organs; Z87.891 Personal history of nicotine dependence; Z95.5 Presence of coronary angioplasty implant and graft; Z98.890 Other specified postprocedural states
CPT/HCPCS: 36415; 71045; 71275; 80048; 80053; 82728; 83605; 83615; 83735; 84145; 84484; 85025; 85379; 85610; 85730; 86140; 87040; 87502; 93005; 94640; 96361; 96372; 96374; 99285

== ENCOUNTER → 2020-06-05 | Outpatient (CLI) | payer MEDICARE ==
--- NOTE | 2020-06-05 15:47 | US ---
EXAMINATION TYPE: US kidneys/renal and bladder DATE OF EXAM: 06/05/2020 COMPARISON: NONE CLINICAL HISTORY: N18.31 CKD Stage 3A. EXAM MEASUREMENTS: Right Kidney: 10.3 x 4.3 x 4.7 cm Left Kidney: 11.0 x 4.6 x 5.1 cm Right Kidney: dilated renal pelvis, lobular contour Left Kidney: dilated renal pelvis, lobular contour Bladder: wnl IMPRESSION: 1. Mild prominence of bilateral extrarenal pelvis
== END | disposition home or self-care (01) ==
LOC: RADUSWWP 08:45
PROVIDERS: ATTEND Internal Medicine Nephrology
DX: N18.31 Chronic kidney disease, stage 3a (principal)
CPT/HCPCS: 76770

== ENCOUNTER 2021-12-16 07:26 | Inpatient (IN) | payer MEDICARE ==
[2021-12-16] MEDS ORDERED: ASPIRIN 81 MG PO STA (07:42)
[2021-12-16 08:12] LABS: Basophils % (A) 0 %; Eosinophils # (A) 0.3 k/uL (0-0.7); Eosinophils % (A) 4 %; HCT 45.8 % (39.0-53.0); HGB 15.6 gm/dL (13.0-17.5); Lymphocytes # (A) 1.5 k/uL (1.0-4.8); Lymphocytes % (A) 26 %; MCH 30.9 pg (25.0-35.0); MCHC 34.1 g/dL (31.0-37.0); MCV 90.6 fL (80.0-100.0); Mean Platelet Volume 10.4; Monocytes # (A) 0.4 k/uL (0-1.0); Monocytes % (A) 7 %; Neutrophils # (A) 3.4 k/uL (1.3-7.7); Neutrophils % (A) 58 %; Platelet Count 168 k/uL (150-450); RBC 5.06 m/uL (4.30-5.90); RDW 13.5 % (11.5-15.5); Total Bilirubin 0.9 mg/dL (0.2-1.3); WBC 5.8 k/uL (3.8-10.6)
--- NOTE | 2021-12-16 08:23 | XR ---
EXAMINATION TYPE: XR chest 2V DATE OF EXAM: 12/16/2021 COMPARISON: Chest x-ray January 05, 2020 HISTORY: Chest pressure and pain. TECHNIQUE: Frontal and lateral views of the chest are obtained. FINDINGS: There is no suspicious focal air space opacity, pleural effusion, or pneumothorax seen. T he cardiac silhouette size is stable and within normal limits. The osseous structures are intact. O verlying EKG leads are redemonstrated. IMPRESSION: No acute cardiopulmonary process currently.
[2021-12-16 08:26] LABS: Albumin 4.2 g/dL (3.5-5.0); Potassium 4.7 mmol/L (3.5-5.1)
--- NOTE | 2021-12-16 08:26 | ED ---
Chest Pain HPI - General Chief Complaint: Chest Pain Stated Complaint: chest pain Time Seen by Provider: 12/16/21 07:32 Source: patient, family, RN notes reviewed Mode of arrival: wheelchair Limitations: no limitations - History of Present Illness Initial Comments: 71-year-old male presents emergency Department chief complaint of chest pain. Patient states that he was woken by chest pain this morning substernal chest pain states he took nitro which alleviated. He states he feels rate at this time. He states pain was "short of breath. Denies any leg pain or leg swelling. 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 Huber. - Related Data Home Medications Medication Instructions Recorded Confirmed Atorvastatin [Lipitor] 80 mg PO HS 05/17/16 01/05/20 Turmeric Root Extract [Turmeric] 500 mg PO DAILY 05/17/16 01/05/20 Ubidecarenone [Co Q-10] 200 mg PO HS 05/13/17 01/05/20 Metoprolol Tartrate [Lopressor] 25 mg PO AC-BRKFST 01/02/20 01/05/20 Nitroglycerin Sl Tabs [Nitrostat] 0.4 mg SUBLINGUAL Q5M PRN 01/02/20 01/05/20 Previous Rx's Medication Instructions Recorded Aspirin 81 mg PO DAILY #90 08/22/16 calcitrioL [Rocaltrol] 0.25 mcg PO [place] cap 08/22/16 Acetaminophen Tab [Tylenol] 1,000 mg PO Q6HR PRN #30 tab 01/07/20 Albuterol Inhaler [Ventolin Hfa 2 puff INHALATION RT-TID 30 Days 01/07/20 Inhaler] #1 puff dexAMETHasone [Decadron] 6 mg PO DAILY 7 Days #7 tablet 01/07/20 Allergies Allergy/AdvReac Type Severity Reaction Status Date / Time losartan Allergy Rash/Hives Verified 12/16/21 07:31 Review of Systems ROS Statement: Those systems with pertinent positive or pertinent negative responses have been documented in the HPI. ROS Other: All systems not noted in ROS Statement are negative. EKG Findings - EKG Comments: EKG Findings:: EKG performed at 17:37 sinus bradycardia rate of 43 [place] 202 QRS 97 QTC is QTC 429/374 there is an inverted T-wave in lead [address] elevation or depression noted Past Medical History Past Medical History: Coronary Artery Disease (CAD), Chest Pain / Angina, Hyperlipidemia, Hypertension, Myocardial Infarction ([place]), Osteoarthritis (OA), Renal Disease Additional Past Medical History / Comment(s): decreased kidney function, hemorrhoid., Tinnitus Last Myocardial Infarction Date:: July 2016 History of Any Multi-Drug Resistant Organisms: None Reported Past Surgical History: Heart Catheterization, Heart Catheterization With Stent, Hernia Repair, Orthopedic Surgery, Prostate Surgery Additional Past Surgical History / Comment(s): Abel rotator cuff, abel varicose vein stripping, TURP. CARDIAC CATH WITH 3 STENTS @[facility]- 08/17/16. Past Anesthesia/Blood Transfusion Reactions: No Reported Reaction, Motion Sickness Date of Last Stent Placement:: Past Psychological History: No Psychological Hx Reported Smoking Status: Former smoker Past Alcohol Use History: Occasional Past Drug Use History: None Reported - Past Family History Mother Family Medical History: Cancer Additional Family Medical History / Comment(s): COLON CANCER Father Family Medical History: Cancer Additional Family Medical History / Comment(s): STOMACH CANCER General Exam Limitations: no limitations General appearance: alert, in no apparent distress Head exam: Present: atraumatic, normocephalic, normal inspection Eye exam: Present: normal appearance, PERRL, EOMI. Absent: scleral icterus, conjunctival injection, periorbital swelling ENT exam: Present: normal exam, normal oropharynx, mucous membranes moist Neck exam: Present: normal inspection, full ROM. Absent: tenderness, meningismus, lymphadenopathy Respiratory exam: Present: normal lung sounds bilaterally. Absent: respiratory distress, wheezes, rales, rhonchi, stridor Cardiovascular Exam: Present: regular rate, normal rhythm, normal heart sounds. Absent: systolic murmur, diastolic murmur, rubs, gallop, clicks GI/Abdominal exam: Present: soft, normal bowel sounds. Absent: distended, tenderness, guarding, rebound, rigid Neurological exam: Present: alert Course Vital Signs 12/16/21 07:27 Temperature 97.6 F Pulse Rate 46 L Respiratory 20 Rate Blood Pressure 149/68 O2 Sat by Pulse 98 Oximetry Chest Pain MDM - MDM 71-year-old male presented emergency from for chest pain. Patient took nitro prior to arrival which alleviated all of his symptoms. Patient's had prior coronary disease with 3 stents. Patiently admitted for cardiac rule out Disposition Clinical Impression: Chest pain Disposition: ADMITTED IP TO THIS HOSP Condition: Fair Referrals: Dale Rooney DO [Primary Care Provider] - 1-2 days Time of Disposition: 08:56
[2021-12-16 08:30] LABS: INR 1.1 (<1.2); Prothrombin Time 11.3 sec (9.0-12.0)
[2021-12-16] MEDS ORDERED: HEPARIN SODIUM 1,000 UN/ML (10ML VL) IV ONE (08:56)
[2021-12-16] MEDS: HEPARIN SOD,PORK IN 0.45% NACL 25,000 UNIT in 0.45% NACL 1 250ML.BAG IV SCH (09:14)
[2021-12-16] MEDS: NITROGLYCERIN SL TABS 0.4 MG TAB SUBLINGUAL PRN ×2 (12:15→18:19)
[2021-12-16] MEDS ORDERED: MELATONIN 3 MG TABLET PO PRN (13:58)
--- NOTE | 2021-12-16 14:35 | P.HPIM ---
History of Present Illness H&P Date: 12/16/21 Chief Complaint: chest pain Patient is a 71-year-old male with history of myocardial infarction and 3 cardiac stents, hypertension, dyslipidemia, and chronic kidney disease who presented with chest pain. On arrival to the ER his found to be bradycardic with a heart rate of 46. Initial EKG showed sinus bradycardia with no significant ST-T wave changes. Initial troponin was negative. Arrangements are made for observation for chest pain. Troponins remained negative. Patient seen and examined at bedside. He woke up from sleep with a tight and heavy feeling in his chest, with shortness of breath, not light headed or dizzy, no diaphoresis, no nausea, Had some tingling in his bilateral shoulders. Pain did not resolve with rest. He took nitro X 2 at home with improvement in his chest pain. This was different from the pain he had 6 years ago with his heart attack. He did have similar symptoms a year ago and his metoprolol was increased, but this time was more severe. Did go fishing 2 days ago and caught a large fish and had reel it, which was heavy. Got up and walked in the ED and pain returned and pain was relieved by nitro. Vp Data was Dr. Huber, was seen last about 4 months ago and had a stress test which was good. No family hx of coronary artery disease Pertinent positives and negatives as discussed in HPI, a complete review of systems was performed and all other systems are negative. Vital signs reviewed General: nontoxic, no distress, appears at stated age Derm: warm, dry Head: atraumatic, normocephalic, symmetric Eyes: EOMI, no lid lag, anicteric sclera, pupils equal round reactive to light ENT: Nose and ears atraumatic, no thrush, no pharyngeal erythema Neck: No thyromegaly, no cervical lymphadenopathy, trachea midline, supple Mouth: no lip lesion, mucus membranes moist Cardiovascular: S1S2 reg, no murmur, positive posterior tibial pulse bilateral, no edema, capillary refill less than 2 seconds Lungs: clear to auscultation bilateral, no rhonchi, no rales, no wheeze, no accessory muscle use Abdominal: soft, nontender to palpation, no guarding, no appreciable organomegaly, normal bowel sounds Ext: no gross muscle atrophy, muscle strength 5 out of 5 in all 4 extremities, no contractures Neuro: CN II-XII grossly intact, light touch intact all 4 extremities, finger to nose within normal limits, Psych: Alert, oriented, appropriate affect Assessment/Plan: Unstable Angina Sinus Bradycardia HTN HLD - troponins negative - heparin gtt - Metoprolol if HR 60 - ASA, statin - Cardio consult - NPI after midnight - if pain recurs then nitro paste. - tele - check orthostatics CKD III - Renal function better than baseline - continue to monitor The patient is admitted with an anticipated less than 2 midnight stay for evaluation of chest pain Surrogate decision-maker: DVT prophylaxis: Heparin gtt Discussed with: patient, , nursing Anticipated discharge date: in AM Anticipated discharge place: Home A total of 65 minutes was spent on the care of this complex patient more than 50% of the time was spent in counseling and care coordination. Past Medical History Past Medical History: Coronary Artery Disease (CAD), Chest Pain / Angina, Hyperlipidemia, Hypertension, Myocardial Infarction (MS), Osteoarthritis (OA), Renal Disease Additional Past Medical History / Comment(s): decreased kidney function, hemorrhoid, Tinnitus Last Myocardial Infarction Date:: July 2016 History of Any Multi-Drug Resistant Organisms: None Reported Past Surgical History: Heart Catheterization, Heart Catheterization With Stent, Hernia Repair, Orthopedic Surgery, Prostate Surgery Additional Past Surgical History / Comment(s): Abel rotator cuff, abel varicose vein stripping, TURP. CARDIAC CATH WITH [address] STENTS @[facility]- 08/17/16. Past Anesthesia/Blood Transfusion Reactions: No Reported Reaction, Motion Sickness Date of Last Stent Placement:: Past Psychological History: No Psychological Hx Reported Smoking Status: Former smoker Past Alcohol Use History: Occasional Past Drug Use History: None Reported - Past Family History Mother Family Medical History: Cancer Additional Family Medical History / Comment(s): COLON CANCER Father Family Medical History: Cancer Additional Family Medical History / Comment(s): STOMACH CANCER Medications and Allergies Home Medications Medication Instructions Recorded Confirmed Type Atorvastatin [Lipitor] 80 mg PO HS 05/17/16 12/16/21 History Turmeric Root Extract [Turmeric] 500 mg PO DAILY 05/17/16 12/16/21 History Aspirin 81 mg PO DAILY #90 08/22/16 12/16/21 Rx calcitrioL [Rocaltrol] 0.25 mcg PO KILGORE cap 08/22/16 12/16/21 Rx Nitroglycerin Sl Tabs [Nitrostat] 0.4 mg SL Q5M PRN 01/02/20 12/16/21 History Metoprolol Tartrate [Lopressor] 25 mg PO HS 12/16/21 12/16/21 History Metoprolol Tartrate [Lopressor] 50 mg PO DAILY 12/16/21 12/16/21 History Ubidecarenone [Coenzyme Q10] 200 mg PO HS 12/16/21 12/16/21 History Allergies Allergy/AdvReac Type Severity Reaction Status Date / Time losartan Allergy Rash/Hives Verified 12/16/21 09:17 Physical Exam Osteopathic Statement: *. No significant issues noted on an osteopathic structural exam other than those noted in the History and Physical/Consult. Vitals: Vital Signs Temp Pulse Resp BP Pulse Ox 12/16/21 12:10 53 L 20 160/85 100 12/16/21 11:00 49 L 18 132/77 98 12/16/21 10:00 58 L 18 119/74 100 12/16/21 09:00 50 L 20 130/68 99 12/16/21 08:00 51 L 18 133/76 99 12/16/21 07:27 97.6 F 46 L 20 149/68 98 Intake and Output 12/15/21 12/16/21 12/16/21 22:59 06:59 14:59 Other: Weight 79.379 kg Results CBC & Chem 7: 12/16/21 07:44 12/16/21 07:44 Labs: Abnormal Lab Results - Last 24 Hours (Table) 12/16/21 12/16/21 Range/Units 07:44 09:50 APTT 21.0 L 101.9 H* (22.0-30.0) sec
[2021-12-16] MEDS: HEPARIN SODIUM 1,000 UN/ML (10ML VL) IV PRN ×2 (16:12→22:16)
[2021-12-16] MEDS: NITROGLYCERIN OINT 1 INCH/GM PACKET TOPICAL SCH ×2 (18:51→23:35)
[2021-12-16] MEDS ORDERED: METOPROLOL TARTRATE 25 MG TAB PO SCH (21:00)
[2021-12-16] MEDS: ATORVASTATIN 80 MG TAB PO SCH (22:17)
[2021-12-17] MEDS: NITROGLYCERIN OINT 1 INCH/GM PACKET TOPICAL SCH ×2 (06:02→11:22)
[2021-12-17] MEDS ORDERED: ASPIRIN 325 MG TAB PO STA (08:14)
[2021-12-17] MEDS ORDERED: ALPRAZolam 0.5 MG TAB PO PRN (08:14)
[2021-12-17] MEDS ORDERED: ATORVASTATIN 80 MG TAB PO STA (08:14)
[2021-12-17] MEDS ORDERED: ALPRAZolam 0.25 MG TAB PO PRN (08:14)
[2021-12-17] MEDS ORDERED: NITROGLYCERIN SL TABS 0.4 MG TAB SUBLINGUAL PRN (08:14)
[2021-12-17] MEDS ORDERED: SODIUM CHLORIDE 0.9% 1,000 ML in EMPTY BAG 1 BAG IV SCH (08:15)
[2021-12-17 08:38] LABS: Platelet Count 195 X 10*3/uL (140-440)
[2021-12-17 08:46] LABS: Chol/HDL Ratio 3.26 Ratio; LDL Cholesterol,Calculated 83.2 mg/dL (0.0-131.0)
[2021-12-17] MEDS ORDERED: ASPIRIN 325 MG TAB PO SCH (09:00)
--- NOTE | 2021-12-17 09:41 | P.CRDCN ---
History of Present Illness Consult date: 12/16/21 History of present illness: HISTORY OF PRESENT ILLNESS: This is a 71-year-old male with a past medical history significant for hypertension, hyperlipidemia, and coronary artery disease with previous PCI. Patient follows in the office with Dr. Huber. We have been asked to see the patient in consultation for chest pain. Patient examined at the bedside. Patient woke up yesterday with chest pressure. He denied any SOB. He took a nitro at home with relief. He came to the ER for further evaluation. He reports two additional episodes of chest pain since coming to the hospital. Both were with exertion and relieved with nitro. * EKG reveals sinus mechanism with nonspecific ST-T wave changes * Chest xray no acute cardiopulmonary process * Laboratory data: WBC 5.8. Hemoglobin 15.6. Platelet count 168. Sodium 139. Potassium 4.7. BUN 20. Creatinine 1.2. Troponin negative 2. * Current home cardiac medications include metoprolol tartrate 50 mg in the morning and 25 mg at night, aspirin 81 mg daily, and Lipitor 80 mg at night * Most recent echocardiogram obtained in April 2020 revealed ejection fraction 55%, mild LVH, mild AR, mild MR, mild TR, mild ID. * Cardiac catheterization history: July 2016 revealing right dominant system, heavily calcified, extremely torturous. LAD with mid lesion of 95%. Circumflex small and nondominant and free of significant disease. LV pressures were acceptable. REVIEW OF SYSTEMS: At the time of my exam: CONSTITUTIONAL: Denies fever or chills. HEENT: Denies blurred vision, vision changes, or eye pain. Denies hemoptysis CARDIOVASCULAR: Denies chest pain. Denies orthopnea. Denies PND. Denies palpitations RESPIRATORY: Denies shortness of breath. GASTROINTESTINAL: Denies abdominal pain. Denies nausea or vomiting. HEMATOLOGIC: Denies bleeding disorders. GENITOURINARY: Denies any blood in urine. SKIN: Denies pruitis. Denies rash. PHYSICAL EXAM: VITAL SIGNS: Reviewed. GENERAL: Well-developed in no acute distress. HEENT: Head is normocephalic. Pupils are equal, round. Sclerae anicteric. Mucous membranes of the mouth are moist. Neck supple. No JVD or thyromegaly LUNGS: Respirations even and unlabored. Lungs essentially clear to auscultation bilaterally. HEART: Regular rate and rhythm. S1 and S2 heard. ABDOMEN: Soft. Nondistended. Nontender. EXTREMITIES: Normal range of motion. No clubbing or cyanosis. Peripheral pulses intact. No lower extremity edema NEUROLOGIC: Awake and alert. Oriented x 3. ASSESSMENT: Unstable angina Coronary artery disease with previous stenting to the LAD Hypertension Hyperlipidemia PLAN: Obtain 2D echo to assess cardiac structure and function Continue home cardiac medications Patient to undergo cardiac cath today with Dr. Huber Further recommendations pending patient course Nurse practitioner note has been reviewed by physician. Signing provider agrees with the documented findings, assessment, and plan of care. Past Medical History Past Medical History: Coronary Artery Disease (CAD), Chest Pain / Angina, Hyperlipidemia, Hypertension, Myocardial Infarction (NH), Osteoarthritis (OA), Renal Disease Additional Past Medical History / Comment(s): decreased kidney function, hemorrhoid., Tinnitus Last Myocardial Infarction Date:: July 2016 History of Any Multi-Drug Resistant Organisms: None Reported Past Surgical History: Heart Catheterization, Heart Catheterization With Stent, Hernia Repair, Orthopedic Surgery, Prostate Surgery Additional Past Surgical History / Comment(s): Abel rotator cuff, abel varicose vein stripping, TURP. CARDIAC CATH WITH 3 STENTS @[facility]- 08/17/16. Past Anesthesia/Blood Transfusion Reactions: No Reported Reaction, Motion Sickness Date of Last Stent Placement:: Past Psychological History: No Psychological Hx Reported Smoking Status: Former smoker Past Alcohol Use History: Occasional Past Drug Use History: None Reported - Past Family History Mother Family Medical History: Cancer Additional Family Medical History / Comment(s): COLON CANCER Father Family Medical History: Cancer Additional Family Medical History / Comment(s): STOMACH CANCER Medications and Allergies Home Medications Medication Instructions Recorded Confirmed Type Atorvastatin [Lipitor] 80 mg PO HS 05/17/16 12/16/21 History Turmeric Root Extract [Turmeric] 500 mg PO DAILY 05/17/16 12/16/21 History Aspirin 81 mg PO DAILY #90 08/22/16 12/16/21 Rx calcitrioL [Rocaltrol] 0.25 mcg PO KIL[place]ORE cap 08/22/16 12/16/21 Rx Nitroglycerin Sl Tabs [Nitrostat] 0.4 mg SL Q5M PRN 01/02/20 12/16/21 History Metoprolol Tartrate [Lopressor] 25 mg PO HS 12/16/21 12/16/21 History Metoprolol Tartrate [Lopressor] 50 mg PO DAILY 12/16/21 12/16/21 History Ubidecarenone [Coenzyme Q10] 200 mg PO HS 12/16/21 12/16/21 History Allergies Allergy/AdvReac Type Severity Reaction Status Date / Time losartan Allergy Rash/Hives Verified 12/16/21 09:17 Physical Exam Vitals: Vital Signs Temp Pulse Resp BP Pulse Ox 12/16/21 07:27 97.6 F 46 L 20 149/68 98 Intake and Output 12/15/21 12/16/21 12/16/21 22:59 06:59 14:59 Other: Weight 79.379 kg Results 12/17/21 04:45 12/16/21 07:44 Cardiac Enzymes 12/16/21 12/16/21 12/16/21 Range/Units 07:30 07:44 09:50 AST 49 (17-59) U/L Troponin I 0.012 0.019 (0.000-0.034) ng/mL Coagulation 12/16/21 Range/Units 07:44 PT 11.3 (9.0-12.0) sec APTT 21.0 L (22.0-30.0) sec CBC 12/16/21 Range/Units 07:44 WBC 5.8 (3.8-10.6) k/uL RBC 5.06 (4.30-5.90) m/uL Hgb 15.6 (13.0-17.5) gm/dL Hct 45.8 (39.0-53.0) % Plt Count 168 (150-450) k/uL Comprehensive Metabolic Panel 12/16/21 Range/Units 07:44 Sodium 139 (137-145) mmol/L Potassium 4.7 (3.5-5.1) mmol/L Chloride 107 (98-107) mmol/L Carbon Dioxide 24 (22-30) mmol/L BUN 20 (9-20) mg/dL Creatinine 1.20 (0.66-1.25) mg/dL Glucose 95 (74-99) mg/dL Calcium 9.0 (8.4-10.2) mg/dL AST 49 (17-59) U/L ALT 27 (4-49) U/L Alkaline Phosphatase 46 (38-126) U/L Total Protein 7.0 (6.3-8.2) g/dL Albumin 4.2 (3.5-5.0) g/dL Current Medications Generic Name Dose Route Start Last Admin Trade Name Freq PRN Reason Stop Dose Admin Aspirin 325 mg 12/17/21 09:00 Aspirin 325 Mg Tab PO DAILY CORRINE Heparin Sodium/Sodium Chloride 250 mls @ 9.525 mls/hr 12/16/21 09:00 12/16/21 09:14 25,000 unit/ Sodium Chloride IV 12 units/kg/hr .Q24H CORRINE 9.525 mls/hr Administration Protocol 12 UNITS/KG/HR Nitroglycerin 0.4 mg 12/16/21 08:56 Nitroglycerin Sl Tabs 0.4 Mg Tab SUBLINGUAL Q5M PRN Chest Pain Intake and Output 12/15/21 12/16/21 12/16/21 22:59 06:59 14:59 Other: Weight 79.379 kg Patient Weight 12/17/21 06:59 Weight 79.379 kg 12/16/21 07:44 12/16/21 07:44
[2021-12-17] MEDS: ASPIRIN 81 MG PO SCH (10:52)
[2021-12-17] MEDS: METOPROLOL TARTRATE 50 MG TAB PO SCH (11:22)
[2021-12-17] MEDS: NITROGLYCERIN SL TABS 0.4 MG TAB SUBLINGUAL PRN (11:44)
[2021-12-17] MEDS ORDERED: NITROGLYCERIN SL TABS 0.4 MG TAB SUBLINGUAL ONE (12:06)
[2021-12-17] MEDS ORDERED: HEPARIN SODIUM 1,000 UN/ML (10ML VL) ONE (12:10)
[2021-12-17] MEDS: MIDAZOLAM 2 MG/2 ML VIAL IV ONE ×2 (12:20→12:23)
[2021-12-17] MEDS ORDERED: LIDOCAINE 1% INJ 10MG/ML (30 ML VIAL-PF) SQ ONE (12:20)
[2021-12-17] MEDS ORDERED: IV FLUID CONTINUATION 750 ML IV ONE (12:20)
[2021-12-17] MEDS: HEPARIN SODIUM 1,000 UN/ML (10ML VL) IV ONE ×4 (12:39→13:16)
[2021-12-17] MEDS ORDERED: IOPAMIDOL-370 100ML BTL INJ ONE ×3 (13:07→13:21)
[2021-12-17] MEDS ORDERED: NITROGLYCERIN 1000MCG/10ML SYRINGE INTRACORON ONE (13:20)
[2021-12-17] MEDS ORDERED: CLOPIDOGREL 75 MG TAB ONE (13:24)
[2021-12-17] MEDS ORDERED: METOPROLOL TARTRATE 25 MG TAB PO SCH (14:09)
--- NOTE | 2021-12-17 15:20 | CA ---
Transthoracic Echo Report Name: Emmanuel Fitzpatrick Age: 71 Gender: M : 1950 Exam Date: 12/16/2021 15:45 Exam Location: [facility] Ht (in): 72 Wt (lb): 175 Ordering Physician: Dale Flores Attending/Referring Phys: [id number], Sandra [employer] Loss Control Surveyor Rebecca Solano, DOM Procedure CPT: Indications: Chest Pain Cardiac Hx: Technical Quality: Contrast 1: Total Dose (mL): Contrast 2: Total Dose (mL): MEASUREMENTS (Male / Female) Normal Values 2D ECHO LV Diastolic Diameter PLAX 5.1 cm 4.2 - 5.9 / 3.9 - 5.3 cm LV Systolic Diameter PLAX 3.4 cm IVS Diastolic Thickness 1.0 cm 0.6 - 1.0 / 0.6 - 0.9 cm LVPW Diastolic Thickness 1.3 cm 0.6 - 1.0 / 0.6 - 0.9 cm LV Relative Wall Thickness 0.5 LA Systolic Diameter LX 5.0 cm 3.0 - 4.0 / 2.7 - 3.8 cm LA Volume 84.7 cm??? 18 - 58 / 22 - 52 cm??? M-MODE Aortic Root Diameter MM 4.0 cm LA Systolic Diameter MM 3.7 cm LA Ao Ratio MM 0.9 MV E Point Septal Separation 1.7 cm AV Cusp Separation MM 2.0 cm DOPPLER MV Area PHT 3.0 cm??? Mitral E Point Velocity 48.0 cm/s Mitral A Point Velocity 60.3 cm/s Mitral E to A Ratio 0.8 MV Deceleration Time 257.0 ms MV E' Velocity 4.5 cm/s Mitral E to MV E' Ratio 10.6 TR Peak Velocity 205.8 cm/s TR Peak Gradient 16.9 mmHg Right Ventricular Systolic Press 21.9 mmHg FINDINGS Left Ventricle Left ventricular ejection fraction is estimated at 50-55%. Right Ventricle Normal right ventricular size and function. Right Atrium Normal right atrial size. Left Atrium Moderately increased left atrial diameter. Severely increased left atrial volume. Mildly increased left atrial area. Mitral Valve Structurally normal mitral valve. Mild mitral regurgitation. Aortic Valve Trileaflet aortic valve. Tricuspid Valve Structurally normal tricuspid valve. Mild tricuspid regurgitation. Pulmonic Valve Structurally normal pulmonic valve. Mild pulmonic regurgitation. Pericardium Normal pericardium. Aorta Normal size aortic root and proximal ascending aorta. CONCLUSIONS Left ventricle systolic function at the lower limits of normal of 50% Left atrial enlargement Previewed by: Dr. Raul Davis MD (Electronically Signed) Final Date: 17 December 2021 15:19
--- NOTE | 2021-12-17 15:56 | P.PN ---
Subjective Progress Note Date: 12/17/21 (delayed charting seen at 0945) Patient is a 71-year-old male with history of myocardial infarction and 3 cardiac stents, hypertension, dyslipidemia, and chronic kidney disease who presented with chest pain. On arrival to the ER his found to be bradycardic with a heart rate of 46. Initial EKG showed sinus bradycardia with no significant ST-T wave changes. Initial troponin was negative. Arrangements are made for observation for chest pain. Troponins remained negative. He was seen by cardiology. He underwent cardiac catheterization and had 1 stent placed to the LAD. Patient seen and examined at bedside. He had some chest pain while ambulating even with the nitro paste, this morning he had breif chest pain at rest. No nausea, no vomiting. General: nontoxic, mild distress due to pain, appears at stated age Derm: warm, dry Head: atraumatic, normocephalic, symmetric Eyes: EOMI, no lid lag, anicteric sclera Mouth: no lip lesion, mucus membranes moist Cardiovascular: S1S2 reg, no murmur, positive posterior tibial pulse bilateral, Lungs: CTA bilateral, no rhonchi, no rales , no accessory muscle use Abdominal: soft, nontender to palpation, no guarding, no appreciable organomega ly Ext: no gross muscle atrophy, no edema, no contractures Neuro: CN II-XI grossly intact, no focal neuro deficits Psych: Alert, oriented, appropriate affect Assessment/Plan: Unstable Angina, coronary artery disease symptomatic requiring stent to the LAD Sinus Bradycardia , on metoprolol HTN HLD -Status post stent to the LAD - Metoprolol if HR 60 - ASA, statin, Plavix - Cardio recs appreciated - nitro prn. - tele CKD III - Renal function better than baseline - continue to monitor -Repeat creatinine in a.m. Transition patient to inpatient status due to symptomatic coronary artery diseas e requiring PCI to the LAD Anticipate home in a.m. Objective - Vital Signs Vital signs: Vital Signs Temp 97.5 F L 12/17/21 14:00 Pulse 51 L 12/17/21 15:05 Resp 16 12/17/21 14:35 BP 132/80 12/17/21 15:05 Pulse Ox 99 12/17/21 15:05 FiO2 21 12/16/21 21:21 Intake & Output 12/16/21 12/17/21 12/17/21 18:59 06:59 18:59 Intake Total 66.834 71.442 650 Balance 66.834 71.442 650 Weight 79.379 kg 79.379 kg Intake: IV 650 Intake, IV Titration 66.834 71.442 Amount Heparin Sod,Pork in 0.45% 66.834 71.442 NaCl 25,000 unit In 0.45 % NaCl 1 250ml.bag @ 12 UNITS/KG/HR 9.525 mls/hr IV .Q24H [facility] Rx#: [id number] Other: Voiding Method Toilet Toilet Toilet # Voids 1 1 1 - Labs CBC & Chem 7: 12/17/21 04:45 12/16/21 07:44
[2021-12-17] MEDS: SODIUM CHLORIDE 0.9% 1,000 ML IV SCH (17:09)
[2021-12-17] MEDS: ATORVASTATIN 80 MG TAB PO SCH (20:00)
[2021-12-17] MEDS: HEPARIN SOD,PORK IN 0.45% NACL 25,000 UNIT in 0.45% NACL 1 250ML.BAG IV SCH (20:55)
[2021-12-18] MEDS: SODIUM CHLORIDE 0.9% 1,000 ML IV SCH (01:57)
[2021-12-18] MEDS ORDERED: HEPARIN SODIUM,PORCINE 2,500 UNIT in SODIUM CHLORIDE 0.9% 250 ML IRRIGATION PRN (07:00)
[2021-12-18] MEDS ORDERED: HEPARIN SODIUM,PORCINE 10,000 UNIT in SODIUM CHLORIDE 0.9% 1,000 ML IRRIGATION PRN (07:00)
[2021-12-18 07:32] VITALS: RESP 14; TEMP 97.9
[2021-12-18 08:40] LABS: Platelet Count 177 X 10*3/uL (140-440)
--- NOTE | 2021-12-18 08:54 | P.PN ---
Subjective Progress Note Date: 12/18/21 HISTORY OF PRESENT ILLNESS: This is a 71-year-old male with a past medical history significant for hypertension, hyperlipidemia, and coronary artery disease with previous PCI. Patient follows in the office with Dr. Huber. We have been asked to see the patient in consultation for chest pain. Patient examined at the bedside. Patient woke up yesterday with chest pressure. He denied any SOB. He took a nitro at home with relief. He came to the ER for further evaluation. He reports two additional episodes of chest pain since coming to the hospital. Both were with exertion and relieved with nitro. * EKG reveals sinus mechanism with nonspecific ST-T wave changes * Chest xray no acute cardiopulmonary process * Laboratory data: WBC 5.8. Hemoglobin 15.6. Platelet count 168. Sodium 139. Potassium 4.7. BUN 20. Creatinine 1.2. Troponin negative 2. * Current home cardiac medications include metoprolol tartrate 50 mg in the morning and 25 mg at night, aspirin 81 mg daily, and Lipitor 80 mg at night * Most recent echocardiogram obtained in April 2020 revealed ejection fraction 5 5%, mild LVH, mild AR, mild MR, mild TR, mild KS. * Cardiac catheterization history: July 2016 revealing right dominant system, heavily calcified, extremely torturous. LAD with mid lesion of 95%. Cir cumflex small and nondominant and free of significant disease. LV pressures were acceptable. 12/18/2021 Patient examined this morning to bedside. Patient is status post cardiac catheterization with Dr. Huber with stenting to the mid LAD. Patient denies any further episodes of chest pain or pressure. He denies shortness of breath. Vital signs are stable. Echocardiogram completed revealing ejection fraction 50-55%, mild MR, mild TR PHYSICAL EXAM: VITAL SIGNS: Reviewed. GENERAL: Well-developed in no acute distress. HEENT: Head is normocephalic. Pupils are equal, round. Sclerae anicteric. Mucous membranes of the mouth are moist. Neck supple. No JVD or thyromegaly LUNGS: Respirations even and unlabored. Lungs essentially clear to auscultation bilaterally. HEART: Regular rate and rhythm. S1 and S2 heard. ABDOMEN: Soft. Nondistended. Nontender. EXTREMITIES: Normal range of motion. No clubbing or cyanosis. Peripheral pulses intact. No lower extremity edema NEUROLOGIC: Awake and alert. Oriented x 3. ASSESSMENT: Unstable angina, s/p PCI to LAD Coronary artery disease with previous stenting to the LAD Hypertension Hyperlipidemia PLAN: Continue aspirin and plavix Add Zetia Continue additional cardiac medications Patient may be discharged home today and follow up outpatient with Dr. Huber Nurse practitioner note has been reviewed by physician. Signing provider agrees with the documented findings, assessment, and plan of care. Objective - Vital Signs Vital signs: Vital Signs Temp 97.9 F 12/18/21 06:50 Pulse 62 12/18/21 06:50 Resp 14 12/18/21 06:50 BP 147/85 12/18/21 06:50 Pulse Ox 98 12/18/21 06:50 FiO2 21 12/16/21 21:21 Intake & Output 12/17/21 12/18/21 12/18/21 18:59 06:59 18:59 Intake Total 650 Output Total 200 Balance 650 -200 Intake: IV 650 Output: Urine 200 Other: Voiding Method Toilet Toilet Urinal # Voids 1 2 - Labs CBC & Chem 7: 12/18/21 05:34 12/16/21 07:44
[2021-12-18] MEDS ORDERED: CLOPIDOGREL 75 MG TAB PO SCH (09:00)
--- NOTE | 2021-12-18 09:42 | P.DS ---
Providers Date of admission: 12/17/21 15:51 Expected date of discharge: 12/18/21 Attending physician: Ming Du MD Consults: 12/16/21 08:56 Consult Physician Urgent Consulting Provider: Felix Huber Consult Reason/Comments: chest pain Do you want consulting provider notified?: Yes Primary care physician: Dale Rooney Hospital Course: Discharge Diagnosis: Unstable Angina, coronary artery disease symptomatic requiring stent to the LAD Sinus Bradycardia, on metoprolol HTN HLD CKD III Hospital Course: Patient is a 71-year-old male with history of myocardial infarction and 3 cardiac stents, hypertension, dyslipidemia, and chronic kidney disease who presented with chest pain. On arrival to the ER his found to be bradycardic with a heart rate of 46. Initial EKG showed sinus bradycardia with no significant ST-T wave changes. Initial troponin was negative. Arrangements are made for observation for chest pain. Troponins remained negative. He was seen by cardiology. He underwent cardiac catheterization and had 1 stent placed to the LAD. He did well after the procedure. Chest pain was resolved. He was determined stable for discharge home. Echocardiogram: Ejection fraction 50%, left atrial enlargement. Follow-up: Dr. Rooney and 1-2 days, Dr. Huber on 12/24. Take all medications as prescribed. New Medications: Plavix and Zetia Patient seen and examined at bedside. Doing well. No additional chest pain or shortness of breath. Has been up and ambulating without difficulty. Vital signs reviewed and stable. General: nontoxic, no distress, appears at stated age Derm: warm, dry Head: atraumatic, normocephalic, symmetric Eyes: EOMI, no lid lag, anicteric sclera Mouth: no lip lesion, mucus membranes moist Cardiovascular: S1S2 reg, no murmur, positive posterior tibial pulse bilateral, Lungs: CTA bilateral, no rhonchi, no rales , no accessory muscle use Abdominal: soft, nontender to palpation, no guarding, no appreciable organomegaly Ext: no gross muscle atrophy, no edema, no contractures Neuro: CN II-XI grossly intact, no focal neuro deficits Psych: Alert, oriented, appropriate affect A total of 32 minutes of time were spent preparing this complex discharge summary. Patient was discharged on 12/18/2021. Patient Condition at Discharge: Fair Plan - Discharge Summary New Discharge Prescriptions: New Clopidogrel [Plavix] 75 mg PO DAILY #90 tab Ezetimibe [Zetia] 10 mg PO DAILY #90 tab Continue Atorvastatin [Lipitor] 80 mg PO HS Turmeric Root Extract [Turmeric] 500 mg PO DAILY Aspirin 81 mg PO DAILY #90 calcitrioL [Rocaltrol] 0.25 mcg PO KIL[place]ORE cap Nitroglycerin Sl Tabs [Nitrostat] 0.4 mg SL Q5M PRN PRN Reason: Chest Pain Metoprolol Tartrate [Lopressor] 50 mg PO DAILY Ubidecarenone [Coenzyme Q10] 200 mg PO HS Changed Metoprolol Tartrate [Lopressor] 25 mg PO PC-SUPPER #0 Discharge Medication List Atorvastatin [Lipitor] 80 mg PO HS 05/17/16 [History] Turmeric Root Extract [Turmeric] 500 mg PO DAILY 05/17/16 [History] Aspirin 81 mg PO DAILY #90 08/22/16 [Rx] calcitrioL [Rocaltrol] 0.25 mcg PO K[place]ORE cap 08/22/16 [Rx] Nitroglycerin Sl Tabs [Nitrostat] 0.4 mg SL Q5M PRN 01/02/20 [History] Metoprolol Tartrate [Lopressor] 50 mg PO DAILY 12/16/21 [History] Ubidecarenone [Coenzyme Q10] 200 mg PO HS 12/16/21 [History] Clopidogrel [Plavix] 75 mg PO DAILY #90 tab 12/18/21 [Rx] Ezetimibe [Zetia] 10 mg PO DAILY #90 tab 12/18/21 [Rx] Metoprolol Tartrate [Lopressor] 25 mg PO PC-SUPPER #0 12/18/21 [Rx] Follow up Appointment(s)/Referral(s): Felix Huber MD [STAFF PHYSICIAN] - 12/24/21 8:45 am Dale Rooney DO [Primary Care Provider] - 1-2 days Activity/Diet/Wound Care/Special Instructions: Activity: As tolerated Diet: Heart Healthy Special Instructions: Take all medications as prescribed. Do not miss your aspirin or Plavix or he could have blockage of her newly placed stent. Please take metoprolol at supper Call cardiology office with any light headedness or dizziness Thank you for trusting us with your care, we wish you well on your journey to better health. Discharge Disposition: HOME SELF-CARE
[2021-12-18 10:08] VITALS: BP 138/84; PULSE 64
[2021-12-18] MEDS: ASPIRIN 81 MG PO SCH (10:15)
[2021-12-18] MEDS: METOPROLOL TARTRATE 50 MG TAB PO SCH (10:16)
--- NOTE | 2021-12-18 12:34 | CC ---
CARDIAC CATHETERIZATION REPORT DATE OF SERVICE: 12/17/2021. PROCEDURES: 1. Left heart catheterization and coronary angiography. 2. PTCA and stenting of mid LAD with a drug-eluting stent. PERFORMED BY: Dr. Heaven Huber. Moderate conscious sedation time was 58 minutes. Patient was administered Versed. Oxygen saturation, hemodynamics, and EKG were monitored closely. CLINICAL INFORMATION: Mr. Fitzpatrick is a 71-year-old gentleman with history of CAD, hypertension and hyperlipidemia who underwent stenting of lesion of mid LAD in 2016. Three drug- eluting stents were placed. The patient had LV dysfunction which improved. Recent stress test from July was unremarkable, but he presented to the hospital with chest pain suggestive of angina without troponin elevation. He had recurrent pain requiring sublingual nitroglycerin, therefore had cardiac catheterization after due discussion regarding risks, benefits and options. PROCEDURE NOTE: Under local anesthesia and strict aseptic precautions, a 6-[place] sheath was placed in difficulty. Using standard Brando, I performed coronary angiography and a pigtail catheter was used to check LV pressure, but LV gram was not performed. I performed a LAD lesion after attempting IFR which was unsuccessful because of machine failure. IFR machine was AngioSeal device was used to secure hemostasis stable condition. Results were discussed with the patient and , I expected he will be discharged tomorrow. He received 600 mg of Plavix and will be on aspirin and Plavix uninterrupted for 1 year. CARDIAC CATHETERIZATION FINDINGS: The left ventricular end-diastolic pressure was about 5 mmHg, no gradient across the aortic valve. CORONARY ANGIOGRAPHY FINDINGS: RIGHT CORONARY ARTERY: Right coronary artery is a large dominant vessel which has about 30-40% major distal lesion. Bifurcates into PLV and PDA, PDA in mid portion and 80% stenosis and there is a modest amount of . LEFT MAIN CORONARY ARTERY: Left main coronary artery is a short patent vessel, free of significant disease with mild calcification, bifurcates into LAD and circumflex. LEFT ANTERIOR DESCENDING CORONARY ARTERY: This vessel is widely patent, gives off 2 diagonal branches, proximal diagonal has a 50% ostial lesion, second diagonal also has a 40% lesion in the last septal branch. The diagonal and septal. Just before the previous stent, there is an eccentric lesion almost 75%-85%. The stented segment is widely patent with good flow midportion after the second and third diagonal branch also had another 40% lesion. However, appears to be new and worse compared to the previous angiogram in 2017, but the stented segment widely patent. I recommended PCI of this vessel and proceeded to perform intervention. LEFT POSTERIOR CIRCUMFLEX CORONARY ARTERY: This is a small nondominant vessel, has minor irregularities, no significant disease. Left ventriculogram was not performed. FINAL IMPRESSION: This patient has 80%-85% proximal/mid LAD lesion previous stent which is widely patent. The nondominant circumflex is free of significant disease, dominant ostia was free of significant disease, but the PDA branch across the LAD has 80% lesion in the mid portion with a moderate amount of myocardium being supplied by it. RECOMMENDATIONS: I recommended PCI of the mid LAD and proceeded to perform this in the same setting. PCI PROCEDURE DETAILS: I used a guide catheter and a Runthrough wire, the wire remains in the diagonal branch. I advanced a 3.0 caliber NC Trek balloon without difficulty and predilated the lesion. I then advanced a second wire with Whisper wire kept in the distal LAD. Using the double-wire combination, I advanced a 3.2 x 8 mm Xience stent, deployed this just proximal to the previous stent and after the first diagonal branch. The aforementioned result awaited, the patient does not have chest pain, but has mild ST segment elevation in anterior leads. Excellent angiographic result was achieved. The sheath was taken out and Angio-Seal device used to secure hemostasis. The patient received additional dose was given. The sheath was taken out and Angio-Seal device used to secure hemostasis. The patient received 600 mg of Plavix. He received heparin 4000 units initially, subsequently another 1000 units was given. ACT was 271. this patient will be discharged tomorrow if he remains stable. . MMODL / IJN: [id number] /
== END 2021-12-18 11:21 | disposition home or self-care (01) | DRG 247 ==
LOC: EC 07:26 → 6NMEDSUR 09:28 → OBSVTOIN 12-17 15:51
PROVIDERS: ADMIT Family Medicine; ATTEND Family Medicine
PROC: 027034Z Dilation of Coronary Artery, One Artery with Drug-eluting Intraluminal Device, Percutaneous Approach (ICD-10-PCS; principal; 2021-12-17 08:30)
PROC: 4A023N7 Measurement of Cardiac Sampling and Pressure, Left Heart, Percutaneous Approach (ICD-10-PCS; principal; 2021-12-17 08:30)
PROC: B2111ZZ Fluoroscopy of Multiple Coronary Arteries using Low Osmolar Contrast (ICD-10-PCS; principal; 2021-12-17 08:30)
DX: I25.110 Atherosclerotic heart disease of native coronary artery with unstable angina pectoris (principal); E78.5 Hyperlipidemia, unspecified; I13.10 Hypertensive heart and chronic kidney disease without heart failure, with stage 1 through stage 4 chronic kidney disease, or unspecified chronic kidney disease; R00.1 Bradycardia, unspecified; I08.3 Combined rheumatic disorders of mitral, aortic and tricuspid valves; I25.2 Old myocardial infarction; N18.30 Chronic kidney disease, stage 3 unspecified; Z79.82 Long term (current) use of aspirin; Z79.899 Other long term (current) drug therapy; Z80.0 Family history of malignant neoplasm of digestive organs; Z87.891 Personal history of nicotine dependence; Z95.5 Presence of coronary angioplasty implant and graft
CPT/HCPCS: 36415; 71046; 80053; 80061; 83735; 84484; 85025; 85049; 85610; 85730; 93005; 93306; 93458; 94760; 96374; 96376; 99285

== ENCOUNTER 2021-12-18 22:38 | Inpatient (IN) | payer MEDICARE ==
--- NOTE | 2021-12-18 22:53 | ED ---
Chest Pain HPI - General Chief Complaint: Chest Pain Stated Complaint: Chest Pain,Had stent yesterday Time Seen by Provider: 12/18/21 22:51 Source: patient, RN notes reviewed, old records reviewed Mode of arrival: wheelchair Limitations: no limitations - History of Present Illness Initial Comments: This is a 71-year-old male to the emergency department for evaluation. Patient has history of coronary disease coming in for chest pain. Patient recent stent placement yesterday felt fine until tonight when he began with chest pain and some diaphoresis and became pale. Patient is feeling improved and given Nitro to arrival which improved his chest pain more. Otherwise no other complaints MD Complaint: chest pain, other (Recent stent placement) -: hour(s) Onset: during rest Pain Location: substernal, left chest Pain Radiation: none Severity: mild Severity scale (1-10): 3 Quality: tightness Consistency: constant Improves With: nitroglycerin Worsens With: nothing Context: recent surgery Anginal Symptoms: diaphoresis, dyspnea Other Symptoms: palpitations Treatments Prior to Arrival: aspirin, nitroglycerin - Related Data Home Medications Medication Instructions Recorded Confirmed Atorvastatin [Lipitor] 80 mg PO HS 05/17/16 12/16/21 Turmeric Root Extract [Turmeric] 500 mg PO DAILY 05/17/16 12/16/21 Nitroglycerin Sl Tabs [Nitrostat] 0.4 mg SL Q5M PRN 01/02/20 12/16/21 Metoprolol Tartrate [Lopressor] 50 mg PO DAILY 12/16/21 12/16/21 Ubidecarenone [Coenzyme Q10] 200 mg PO HS 12/16/21 12/16/21 Previous Rx's Medication Instructions Recorded Aspirin 81 mg PO DAILY #90 08/22/16 calcitrioL [Rocaltrol] 0.25 mcg PO KILGORE cap 08/22/16 Clopidogrel [Plavix] 75 mg PO DAILY #90 tab 12/18/21 Ezetimibe [Zetia] 10 mg PO DAILY #90 tab 12/18/21 Metoprolol Tartrate [Lopressor] 25 mg PO PC-SUPPER #0 12/18/21 Allergies Allergy/AdvReac Type Severity Reaction Status Date / Time losartan Allergy Rash/Hives Verified 12/16/21 09:17 Review of Systems ROS Statement: Those systems with pertinent positive or pertinent negative responses have been documented in the HPI. ROS Other: All systems not noted in ROS Statement are negative. EKG Findings - EKG Comments: EKG Findings:: EKG is sinus 66 OH 190 QRS 91 QTc 407 Past Medical History Past Medical History: Coronary Artery Disease (CAD), Chest Pain / Angina, Hyperlipidemia, Hypertension, Myocardial Infarction (SC), Osteoarthritis (OA), Renal Disease Additional Past Medical History / Comment(s): decreased kidney function, hemorrhoid., Tinnitus Last Myocardial Infarction Date:: July 2016 History of Any Multi-Drug Resistant Organisms: None Reported Past Surgical History: Heart Catheterization, Heart Catheterization With Stent, Hernia Repair, Orthopedic Surgery, Prostate Surgery Additional Past Surgical History / Comment(s): Abel rotator cuff, abel varicose vein stripping, TURP. CARDIAC CATH WITH 3 STENTS @[facility]- 08/17/16. Past Anesthesia/Blood Transfusion Reactions: No Reported Reaction, Motion Sickness Date of Last Stent Placement:: Past Psychological History: No Psychological Hx Reported Smoking Status: Former smoker Past Alcohol Use History: Occasional Past Drug Use History: None Reported - Past Family History Mother Family Medical History: Cancer Additional Family Medical History / Comment(s): COLON CANCER Father Family Medical History: Cancer Additional Family Medical History / Comment(s): STOMACH CANCER General Exam Limitations: no limitations General appearance: alert, in no apparent distress Head exam: Present: atraumatic, normocephalic, normal inspection Eye exam: Present: normal appearance, PERRL, EOMI. Absent: scleral icterus, conjunctival injection, periorbital swelling ENT exam: Present: normal exam, mucous membranes moist Neck exam: Present: normal inspection. Absent: tenderness, meningismus, lymphadenopathy Respiratory exam: Present: normal lung sounds bilaterally. Absent: respiratory distress, wheezes, rales, rhonchi, stridor Cardiovascular Exam: Present: regular rate, normal rhythm, normal heart sounds. Absent: systolic murmur, diastolic murmur, rubs, gallop, clicks GI/Abdominal exam: Present: soft, normal bowel sounds. Absent: distended, tenderness, guarding, rebound, rigid Extremities exam: Present: normal inspection, full ROM, normal capillary refill. Absent: tenderness, pedal edema, joint swelling, calf tenderness Back exam: Present: normal inspection Neurological exam: Present: alert, oriented X3, CN II-XII intact Psychiatric exam: Present: normal affect, normal mood Skin exam: Present: warm, dry, intact, normal color. Absent: rash Course Vital Signs 12/18/21 22:44 Temperature 98.3 F Pulse Rate 69 Respiratory 16 Rate Blood Pressure 155/73 O2 Sat by Pulse 96 Oximetry - Reevaluation(s) Reevaluation #1: 12/18/21 23:35 Medical record is reviewed Reevaluation #2: 12/18/21 23:35 Patient's chest pain remains improved Reevaluation #3: 12/18/21 23:35 Patient informed results and questions answered - Consultations Consultation #1: Spoke with sound who is okay for admission Chest Pain MDM - MDM 71 male to the emergency department for evaluation, patient presents today for evaluation of chest pain. Patient has recent history of stent placement yesterday. Chest pain was worse today better with nitro patient will be admitted for unstable angina, non-ST elevated SC Critical Care Time Critical Care Time: Yes Total Critical Care Time: 31 Disposition Clinical Impression: Chest pain, CAD (coronary artery disease), Status post coronary artery stent placement, Unstable angina pectoris Disposition: ADMITTED IP TO THIS HOSP Condition: Undetermined Is patient prescribed a controlled substance at d/c from ED?: No Referrals: Dale Rooney DO [Primary Care Provider] - 1-2 days Time of Disposition: 23:45
--- NOTE | 2021-12-18 23:20 | XR ---
EXAMINATION TYPE: XR chest 2V DATE OF EXAM: 12/18/2021 COMPARISON: 12/16/2021 HISTORY: Chest pain TECHNIQUE: FINDINGS: Heart and mediastinum are normal. Lungs are clear. Diaphragm is normal. Bony thorax is inta ct. There are chest leads. IMPRESSION: Normal chest. No adverse change
[2021-12-18 23:29] LABS: Albumin 4.1 g/dL (3.5-5.0); Calcium 9.1 mg/dL (8.4-10.2); Magnesium 1.8 mg/dL (1.6-2.3); Potassium 3.9 mmol/L (3.5-5.1); Total Bilirubin 0.3 mg/dL (0.2-1.3); Total Protein 6.6 g/dL (6.3-8.2)
[2021-12-18] MEDS ORDERED: MORPHINE SULFATE 4 MG/ML SYRINGE IV PRN (23:31)
[2021-12-18] MEDS ORDERED: NITROGLYCERIN SL TABS 0.4 MG TAB SUBLINGUAL PRN (23:31)
[2021-12-18] MEDS ORDERED: HEPARIN SODIUM 1,000 UN/ML (10ML VL) IV ONE (23:31)
[2021-12-18 23:33] LABS: Basophils % (A) 0 %; Eosinophils # (A) 0.3 k/uL (0-0.7); Eosinophils % (A) 4 %; HCT 43.4 % (39.0-53.0); HGB 14.9 gm/dL (13.0-17.5); Lymphocytes # (A) 1.3 k/uL (1.0-4.8); Lymphocytes % (A) 17 %; MCH 31.1 pg (25.0-35.0); MCHC 34.3 g/dL (31.0-37.0); MCV 90.7 fL (80.0-100.0); Mean Platelet Volume 9.3; Monocytes # (A) 0.5 k/uL (0-1.0); Monocytes % (A) 7 %; Neutrophils # (A) 4.9 k/uL (1.3-7.7); Neutrophils % (A) 67 %; Platelet Count 165 k/uL (150-450); RBC 4.79 m/uL (4.30-5.90); RDW 13.1 % (11.5-15.5); WBC 7.3 k/uL (3.8-10.6)
[2021-12-18 23:39] LABS: INR 0.9 (<1.2); Partial Thromboplastin Time 25.6 sec (22.0-30.0); Prothrombin Time 10.1 sec (9.0-12.0)
[2021-12-19] MEDS: HEPARIN SOD,PORK IN 0.45% NACL 25,000 UNIT in 0.45% NACL 1 250ML.BAG IV SCH (02:40)
--- NOTE | 2021-12-19 03:30 | P.HPIM ---
History of Present Illness H&P Date: 12/19/21 Chief Complaint: chest pain 71 year old male with CAD s/p multiple stents patient was just discharged yesterday , he was admitted for unstable angina, had a heart cath , and required PCI in mid LAD he tolerated procedure well. he was discharged form the hospital yesterday, and later that evening , he suddenly started experiencing retrosternal chest pain associated with heart racing , and was looking pale. denies any SOB, nausea , vomiting, or diaphoresis , denies any syncope. he took a nitro pill and his drove him to the hospital. upon arrival vital s signs stable, patient symptoms gone, denies any ongoing chest pain or trouble breathing. blood work showed elevated trops and CKD . patient was started on heparin drip and admitted for cardiology evaluation he denies any indigestion, GERD, fever, chills, URI symptoms , abd pain , nausea or vomiting Review of Systems Pertinent positives as noted in HPI. All other systems were reviewed and are negative Past Medical History Past Medical History: Coronary Artery Disease (CAD), Chest Pain / Angina, Hyperlipidemia, Hypertension, Myocardial Infarction ([place]), Osteoarthritis (OA), Renal Disease Additional Past Medical History / Comment(s): decreased kidney function, hemorrhoid., Tinnitus Last Myocardial Infarction Date:: July 2016 History of Any Multi-Drug Resistant Organisms: None Reported Past Surgical History: Heart Catheterization, Heart Catheterization With Stent, Hernia Repair, Orthopedic Surgery, Prostate Surgery Additional Past Surgical History / Comment(s): Abel rotator cuff, abel varicose vein stripping, TURP. CARDIAC CATH WITH 3 STENTS @[facility]- 08/17/16. Past Anesthesia/Blood Transfusion Reactions: No Reported Reaction, Motion Sickness Date of Last Stent Placement:: Past Psychological History: No Psychological Hx Reported Smoking Status: Former smoker Past Alcohol Use History: Occasional Past Drug Use History: None Reported - Past Family History Mother Family Medical History: Cancer Additional Family Medical History / Comment(s): COLON CANCER Father Family Medical History: Cancer Additional Family Medical History / Comment(s): STOMACH CANCER Medications and Allergies Home Medications Medication Instructions Recorded Confirmed Type Atorvastatin [Lipitor] 80 mg PO HS 05/17/16 12/16/21 History Turmeric Root Extract [Turmeric] 500 mg PO DAILY 05/17/16 12/16/21 History Aspirin 81 mg PO DAILY #90 08/22/16 12/16/21 Rx calcitrioL [Rocaltrol] 0.25 mcg PO K[place]ORE cap 08/22/16 12/16/21 Rx Nitroglycerin Sl Tabs [Nitrostat] 0.4 mg SL Q5M PRN 01/02/20 12/16/21 History Metoprolol Tartrate [Lopressor] 50 mg PO DAILY 12/16/21 12/16/21 History Ubidecarenone [Coenzyme Q10] 200 mg PO HS 12/16/21 12/16/21 History Clopidogrel [Plavix] 75 mg PO DAILY #90 tab 12/18/21 Rx Ezetimibe [Zetia] 10 mg PO DAILY #90 tab 12/18/21 Rx Metoprolol Tartrate [Lopressor] 25 mg PO PC-SUPPER #0 12/18/21 12/16/21 Rx Allergies Allergy/AdvReac Type Severity Reaction Status Date / Time losartan Allergy Rash/Hives Verified 12/16/21 09:17 Physical Exam Vitals: Vital Signs Temp Pulse Resp BP Pulse Ox 12/18/21 22:44 98.3 F 69 16 155/73 96 Intake and Output 12/18/21 12/18/21 12/19/21 14:59 22:59 06:59 Other: Weight 79.379 kg Constitutional: No acute distress, conversant, pleasant Eyes: Anicteric sclerae, moist conjunctiva, Pupils equal round reactive to light ENMT: NC/AT Oropharynx clear, no erythema, or exudates Neck: Supple, no masses, or JVD No carotid bruits No thyromegaly Lungs: Clear to auscultation Clear to percussion Normal respiratory effort, no accessory muscle use Cardiovascular: Heart regular in rate and rhythm, No murmurs, gallops, or rubs No peripheral edema Abdominal: Soft Nontender, no guarding, rebound or rigidity Abdomen moving with respiration Normoactive bowel sounds No hepatomegaly, No splenomegaly No palpable mass No abdominal wall hernia noted Skin: Normal temperature, tone, texture, turgor No induration No subcutaneous nodules No rash, lesions No ulcers Extremities: No digital cyanosis No clubbing Pedal pulses intact and symmetrical Radial pulses intact and symmetrical No calf tenderness Psychiatric: Alert and oriented to person, place and time Appropriate affect fair judgement Neuro Muscles Strength 5/5 in all 4 extremities Sensation to light touch grossly present throughout Cranial nerves II-XII grossly intact No focal sensory deficits Lymphatics: no palpable cervical or supraclavicular , or inguinal lymph nodes Results CBC & Chem 7: 12/18/21 23:00 12/18/21 23:00 Labs: Abnormal Lab Results - Last 24 Hours (Table) 12/18/21 12/18/21 12/19/21 Range/Units 23:00 23:00 00:54 BUN 26 H (9-20) mg/dL Creatinine 1.26 H (0.66-1.25) mg/dL Glucose 120 H (74-99) mg/dL Troponin I 0.279 H* 0.288 H* (0.000-0.034) ng/mL Assessment and Plan Assessment: NSTEMI heparin drip trend trops nitro PRN ASA, plavix , Statin , metoprolol cardiology eval monitor vital signs s/p left heart cath 12/17/21 with PCI mid LAD, 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
[2021-12-19 05:15] LABS: Mean Platelet Volume 9.6; Platelet Count 172 k/uL (150-450)
[2021-12-19] MEDS: SODIUM CHLORIDE 0.9% 1,000 ML IV SCH (05:26)
--- NOTE | 2021-12-19 08:31 | P.CRDCN ---
History of Present Illness Consult date: 12/19/21 Chief complaint: Chest pain History of present illness: The patient is a very pleasant 69-year-old gentleman with a past medical history significant for CAD with prior stenting of the LAD was performed to 48 hours ago as well as hypertension and dyslipidemia who presented to the hospital complaining of chest discomfort. He presented to the hospital 2 days ago complaining of chest discomfort and he was ruled in for acute coronary event. She underwent a heart catheterization by Dr. Huber and he was found to have severe disease, focal lesion involving the proximal LAD where he underwent stenting of the LAD with a good angiographic results and without any complication. He was also found to have severe disease involving a medium size caliber PDA branch of the right coronary. The patient was discharged in stable medical condition yesterday. He presented back because he was at home sitting on the couch watching TV with his when suddenly developed chest discomfort in the middle of the chest lasted for about 10 minutes and resolved with nitroglycerin. The discomfort did not radiate to the arms or neck or shoulders or back and not associated with any syncope or dizziness or lightheadedness or any feeling of shortness of breath. It was associated with heart racing. He presented back to the emergency department where further investigation was performed including EKG showing sinus rhythm and troponin came in to be slightly abnormal but appeared to be somewhat flat echo support. Currently the patient is chest pain-free. Currently he is on heparin and he is also on dual antiplatelet therapy along with high intensity statin. Past Medical History Past Medical History: Coronary Artery Disease (CAD), Chest Pain / Angina, Hyperlipidemia, Hypertension, Myocardial Infarction (PR), Osteoarthritis (OA), Renal Disease Additional Past Medical History / Comment(s): decreased kidney function, hemorrhoid., Tinnitus Last Myocardial Infarction Date:: July 2016 History of Any Multi-Drug Resistant Organisms: None Reported Past Surgical History: Heart Catheterization, Heart Catheterization With Stent, Hernia Repair, Orthopedic Surgery, Prostate Surgery Additional Past Surgical History / Comment(s): Abel rotator cuff, abel varicose vein stripping, TURP. CARDIAC CATH WITH 3 STENTS @[facility]- 08/17/16. Past Anesthesia/Blood Transfusion Reactions: No Reported Reaction, Motion Sickness Date of Last Stent Placement:: Past Psychological History: No Psychological Hx Reported Smoking Status: Former smoker Past Alcohol Use History: Occasional Past Drug Use History: None Reported - Past Family History Mother Family Medical History: Cancer Additional Family Medical History / Comment(s): COLON CANCER Father Family Medical History: Cancer Additional Family Medical History / Comment(s): STOMACH CANCER Medications and Allergies Home Medications Medication Instructions Recorded Confirmed Type Atorvastatin [Lipitor] 80 mg PO HS 05/17/16 12/16/21 History Turmeric Root Extract [Turmeric] 500 mg PO DAILY 05/17/16 12/16/21 History Aspirin 81 mg PO DAILY #90 08/22/16 12/16/21 Rx calcitrioL [Rocaltrol] 0.25 mcg PO RAMIREZ cap 08/22/16 12/16/21 Rx Nitroglycerin Sl Tabs [Nitrostat] 0.4 mg SL Q5M PRN 01/02/20 12/16/21 History Metoprolol Tartrate [Lopressor] 50 mg PO DAILY 12/16/21 12/16/21 History Ubidecarenone [Coenzyme Q10] 200 mg PO HS 12/16/21 12/16/21 History Clopidogrel [Plavix] 75 mg PO DAILY #90 tab 12/18/21 Rx Ezetimibe [Zetia] 10 mg PO DAILY #90 tab 12/18/21 Rx Metoprolol Tartrate [Lopressor] 25 mg PO PC-SUPPER #0 12/18/21 12/16/21 Rx Allergies Allergy/AdvReac Type Severity Reaction Status Date / Time losartan Allergy Rash/Hives Verified 12/16/21 09:17 Physical Exam Vitals: Vital Signs Temp Pulse Resp BP Pulse Ox 12/18/21 22:44 98.3 F 69 16 155/73 96 Intake and Output 12/18/21 12/19/21 12/19/21 22:59 06:59 14:59 Other: Weight 79.379 kg - Constitutional General appearance: no acute distress - Respiratory Respiratory: bilateral: CTA - Cardiovascular Rhythm: regular Results 12/19/21 04:46 12/18/21 23:00 Cardiac Enzymes 12/18/21 12/18/21 12/19/21 Range/Units 23:00 23:00 00:54 AST 31 (17-59) U/L Troponin I 0.279 H* 0.288 H* (0.000-0.034) ng/mL 12/19/21 Range/Units 04:46 AST (17-59) U/L Troponin I 0.271 H* (0.000-0.034) ng/mL Coagulation 12/18/21 Range/Units 23:00 PT 10.1 (9.0-12.0) sec APTT 25.6 (22.0-30.0) sec CBC 12/18/21 12/19/21 Range/Units 23:00 04:46 WBC 7.3 (3.8-10.6) k/uL RBC 4.79 (4.30-5.90) m/uL Hgb 14.9 (13.0-17.5) gm/dL Hct 43.4 (39.0-53.0) % Plt Count 165 172 (150-450) k/uL Comprehensive Metabolic Panel 12/18/21 Range/Units 23:00 Sodium 138 (137-145) mmol/L Potassium 3.9 (3.5-5.1) mmol/L Chloride 105 (98-107) mmol/L Carbon Dioxide 22 (22-30) mmol/L BUN 26 H (9-20) mg/dL Creatinine 1.26 H (0.66-1.25) mg/dL Glucose 120 H (74-99) mg/dL Calcium 9.1 (8.4-10.2) mg/dL AST 31 (17-59) U/L ALT 22 (4-49) U/L Alkaline Phosphatase 62 (38-126) U/L Total Protein 6.6 (6.3-8.2) g/dL Albumin 4.1 (3.5-5.0) g/dL Current Medications Generic Name Dose Route Start Last Admin Trade Name Aramis PRN Reason Stop Dose Admin Aspirin 325 mg 12/19/21 09:00 Aspirin 325 [address] Tab [address] [facility] Atorvastatin Calcium 80 mg 12/19/21 21:00 Atorvastatin 80 Mg Tab PO HS [facility] Calcitriol 0.25 mcg 12/20/21 09:00 Calcitriol 0.25 Mcg Cap PO Ramirez@0900 [facility] Clopidogrel Bisulfate 75 mg 12/19/21 09:00 Clopidogrel 75 Mg Tab PO DAILY [facility] Ezetimibe 10 mg 12/19/21 09:00 Ezetimibe 10 [address] Tab [address] [facility] Sodium Chloride 1,000 mls @ 20 mls/hr 12/18/21 23:45 12/19/21 05:26 Saline 0.9% IV 20 mls/hr .Q24H CORRINE Administration Heparin Sodium/Sodium Chloride 250 mls @ 9.525 mls/hr 12/18/21 23:45 12/19/21 02:40 25,000 unit/ Sodium Chloride IV 12 units/kg/hr .Q24H CORRINE 9.525 mls/hr Administration Protocol 12 UNITS/KG/HR Metoprolol Tartrate 25 mg 12/19/21 18:30 Metoprolol Tartrate 25 Mg Tab PO PC-SUPPER [facility] Metoprolol Tartrate 50 mg 12/19/21 09:00 Metoprolol Tartrate 50 Mg Tab PO DAILY [facility] Morphine Sulfate 4 mg 12/18/21 23:31 Morphine Sulfate 4 Mg/Ml Syringe IV Q4HR PRN Chest Pain Nitroglycerin 0.4 mg 12/18/21 23:31 Nitroglycerin Sl Tabs 0.4 Mg Tab SUBLINGUAL Q5M PRN Chest Pain Intake and Output 12/18/21 12/19/21 12/19/21 22:59 06:59 14:59 Other: Weight 79.379 kg 12/19/21 04:46 12/18/21 23:00 Assessment and Plan Assessment: Assessment #1 CAD and status post PCI of the LAD #2 evidence of myocardial injury was no evidence of ischemia at this point #3 hypertension #4 dyslipidemia Plan #1 continue dual antiplatelet therapy #2 continue heparin IV for additional 24 hours #3 assess the patient tomorrow morning and monitor the patient overnight #4 consider coronary angiogram if the patient continues to have chest discomfort or started experiencing chest discomfort
[2021-12-19] MEDS: METOPROLOL TARTRATE 50 MG TAB PO SCH (09:15)
[2021-12-19] MEDS: CLOPIDOGREL 75 MG TAB PO SCH (09:15)
[2021-12-19] MEDS: ASPIRIN 325 MG TAB PO SCH (09:15)
[2021-12-19] MEDS: EZETIMIBE 10 MG TAB PO SCH (09:16)
[2021-12-19 09:28] LABS: HDL Cholesterol 54.7 mg/dL (40.00-60.00)
[2021-12-19 09:38] LABS: Chol/HDL Ratio 2.8 Ratio
[2021-12-19 09:39] LABS: Triglycerides 38.5 mg/dL (0.00-149.00)
--- NOTE | 2021-12-19 10:20 | P.PN ---
Subjective Progress Note Date: 12/19/21 Patient is a 71-year-old male with history of myocardial infarction and 3 cardiac stents, hypertension, dyslipidemia, and chronic kidney disease who presented with chest pain. He presented on 12/16 the hospital and underwent PCI to the LAD and was discharged home on 12/18. He had recurrent chest pain and represented to the hospital. He had mildly elevated troponin at 0.2. His troponins were trended and remained flat. He was seen by cardiology. They recommended continuing IV heparin for his initial 24 hours and reassessing the patient in the morning. Patient seen and examined at bedside. He is upset about being here is he had a holiday democrat to go to today. He is feeling anxious. He denies any chest pain at this time. 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 General: nontoxic, no distress, appears at stated age Derm: warm, dry Head: atraumatic, normocephalic, symmetric Eyes: EOMI, no lid lag, anicteric sclera Mouth: no lip lesion, mucus membranes moist Cardiovascular: S1S2 reg, no murmur, positive posterior tibial pulse bilateral, Lungs: CTA bilateral, no rhonchi, no rales , no accessory muscle use Abdominal: soft, nontender to palpation, no guarding, no appreciable organomegaly Ext: no gross muscle atrophy, no edema, no contractures Neuro: CN II-XI grossly intact, no focal neuro deficits Psych: Alert, oriented, appropriate affect Assessment/plan: Chest pain s/p recent PCI to the LAD 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 HTN, elevated intermittently HLD - heparin gtt X 24 more hours per cardiology - Asa, plavix, statin, metoprolol - zetia - check CT cervial and thorasic spine CKD III - follow Cr Active Medications Generic Name Dose Route Start Last Admin Trade Name Freq PRN Reason Stop Dose Admin Aspirin 325 mg 12/19/21 09:00 12/19/21 09:15 Aspirin 325 Mg Tab PO 325 mg DAILY [facility] Administration Atorvastatin Calcium 80 mg 12/19/21 21:00 Atorvastatin 80 Mg Tab PO HS [facility] Calcitriol 0.25 mcg 12/20/21 09:00 Calcitriol 0.25 Mcg Cap PO Ramirez@0900 [facility] Clopidogrel Bisulfate 75 mg 12/19/21 09:00 12/19/21 09:15 Clopidogrel 75 Mg Tab PO 75 mg DAILY [facility] Administration Ezetimibe 10 mg 12/19/21 09:00 12/19/21 09:16 Ezetimibe 10 Mg Tab PO 10 mg DAILY [facility] Administration Sodium Chloride 1,000 mls @ 20 mls/hr 12/18/21 23:45 12/19/21 05:26 Saline 0.9% IV 20 mls/hr .Q24H CORRINE Administration Heparin Sodium/Sodium Chloride 250 mls @ 9.525 mls/hr 12/18/21 23:45 12/19/21 02:40 25,000 unit/ Sodium Chloride IV 12 units/kg/hr .Q24H CORRINE 9.525 mls/hr Administration Protocol 12 UNITS/KG/HR Metoprolol Tartrate 25 mg 12/19/21 18:30 Metoprolol Tartrate 25 Mg Tab PO PC-SUPPER [facility] Metoprolol Tartrate 50 mg 12/19/21 09:00 12/19/21 09:15 Metoprolol Tartrate 50 Mg Tab PO 50 mg DAILY [facility] Administration Morphine Sulfate 4 mg 12/18/21 23:31 Morphine Sulfate 4 Mg/Ml Syringe IV Q4HR PRN Chest Pain Nitroglycerin 0.4 mg 12/18/21 23:31 Nitroglycerin Sl Tabs 0.4 Mg Tab SUBLINGUAL Q5M PRN Chest Pain Objective - Vital Signs Vital signs: Vital Signs Temp 98.1 F 12/19/21 09:18 Pulse 59 L 12/19/21 09:18 Resp 18 12/19/21 09:18 BP 130/86 12/19/21 09:18 Pulse Ox 98 12/19/21 09:18 FiO2 Intake & Output 12/18/21 12/19/21 12/19/21 18:59 06:59 18:59 Weight 79.379 kg - Labs CBC & Chem 7: 12/19/21 04:46 12/18/21 23:00 Labs: Abnormal Lab Results - Last 24 Hours (Table) 12/18/21 12/18/21 12/19/21 Range/Units 23:00 23:00 00:54 BUN 26 H (9-20) mg/dL Creatinine 1.26 H (0.66-1.25) mg/dL Glucose 120 H (74-99) mg/dL Troponin I 0.279 H* 0.288 H* (0.000-0.034) ng/mL 12/19/21 Range/Units 04:46 BUN (9-20) mg/dL Creatinine (0.66-1.25) mg/dL Glucose (74-99) mg/dL Troponin I 0.271 H* (0.000-0.034) ng/mL
--- NOTE | 2021-12-19 14:29 | CT ---
EXAMINATION TYPE: CT CervThoracic spine wo con DATE OF EXAM: 12/19/2021 COMPARISON: 01/03/[address] scan HISTORY: Pain. Hx of heavy lifting CT DLP: 1234.6 mGycm Automated exposure control for dose reduction was used. Images obtained from the skull base to L1 vertebra without contrast. The cervical and thoracic vertebra have normal spacing and alignment. No compression fracture. 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 There is no paraspinal mass. There is normal aeration of the mastoid sinuses . Occipital bone is intact. There is no evidence of any significant cervical or thoracic spinal steno sis. No significant compression deformity. There is minimal spurring of the endplates at C5-6. There is some posterior spurring and left side encroachment on the spinal canal at C5-6. IMPRESSION: Mild spondylotic changes at C5-6 with mild osteophyte encroachment on the spinal canal. No fracture.
[2021-12-19] MEDS: methylPREDNISolone 4 MG TAB TAPER PO SCH (17:32)
[2021-12-19 17:51] LABS: LDL Cholesterol,Direct Reflex 87.9 mg/dL (0.00-129.00)
[2021-12-19] MEDS ORDERED: METOPROLOL TARTRATE 25 MG TAB PO SCH (18:30)
[2021-12-19] MEDS ORDERED: ATORVASTATIN 80 MG TAB PO SCH (21:00)
[2021-12-20 03:20] VITALS: TEMP 98.1
[2021-12-20] MEDS: SODIUM CHLORIDE 0.9% 1,000 ML IV SCH (03:32)
[2021-12-20] MEDS: HEPARIN SOD,PORK IN 0.45% NACL 25,000 UNIT in 0.45% NACL 1 250ML.BAG IV SCH ×2 (03:32→05:38)
[2021-12-20 06:39] LABS: Mean Platelet Volume 9.9; Platelet Count 176 k/uL (150-450)
--- NOTE | 2021-12-20 06:46 | P.PN ---
Subjective Progress Note Date: 12/20/21 Principal diagnosis: CAD and status post PCI The patient is a very pleasant 69-year-old gentleman with a past medical history significant for CAD with prior stenting of the LAD was performed to 48 hours ago as well as hypertension and dyslipidemia who presented to the hospital [facility] of chest discomfort. He presented to the hospital 2 days ago complaining of chest discomfort and he was ruled in for acute coronary event. She underwent a heart catheterization by Dr. Huber and he was found to have severe disease, focal lesion involving the proximal LAD where he underwent stenting of the LAD with a good angiographic results and without any complication. He was also found to have severe disease involving a medium size caliber PDA branch of the right coronary. The patient was discharged in stable medical condition yesterday. He presented back because he was at home sitting on the couch watching TV with his when suddenly developed chest discomfort in the middle of the chest lasted for about 10 minutes and resolved with nitroglycerin. The discomfort did not radiate to the arms or neck or shoulders or back and not associated with any syncope or dizziness or lightheadedness or any feeling of shortness of breath. It was associated with heart racing. He presented back to the emergency department where further investigation was performed including EKG showing sinus rhythm and troponin came in to be slightly abnormal but appeared to be somewhat flat echo support. Currently the patient is chest pain-free. Currently he is on heparin and he is also on dual antiplatelet therapy along with high intensity statin. December 202021 The patient was seen and examined this morning. He remains asymptomatic in terms of chest pain or chest discomfort or shortness of breath. He remains hemodynamically stable as well. He underwent an echo will follow-up on that. He remains on dual antiplatelet therapy along with high intensity statin. If the echo looks good the patient potentially can be discharged home from the cardiovascular standpoint of view and follow-up with Dr. Huber in the office Objective - Vital Signs Vital signs: Vital Signs Temp 98.1 F 12/20/21 03:19 Pulse 67 12/20/21 03:19 Resp 16 12/20/21 03:19 BP 110/67 12/20/21 03:19 Pulse Ox 97 12/20/21 03:19 FiO2 Intake & Output 12/19/21 12/19/21 12/20/21 06:59 18:59 06:59 Intake Total 256.445 118.555 Balance 256.445 118.555 Weight 79.379 kg 77.1 kg Intake: Intake, IV Titration 131.445 118.555 Amount Heparin Sod,Pork in 0.45% 131.445 118.555 NaCl 25,000 unit In 0.45 % NaCl 1 250ml.bag @ 12 UNITS/KG/HR 9.525 mls/hr IV .Q24H CORRINE Rx#: [id number] Oral 125 - Constitutional General appearance: Present: no acute distress - Respiratory Respiratory: bilateral: CTA - Cardiovascular Rhythm: regular Heart sounds: normal: S1, S2 - Labs CBC & Chem 7: 12/20/21 06:02 12/18/21 23:00 Labs: Abnormal Lab Results - Last 24 Hours (Table) 12/19/21 12/19/21 Range/Units 13:29 22:25 APTT 35.4 H 43.1 H (22.0-30.0) sec Assessment and Plan Assessment: Assessment #1 CAD and status post PCI of the LAD #2 evidence of myocardial injury was no evidence of ischemia at this point #3 hypertension #4 dyslipidemia Plan #1 continue dual antiplatelet therapy #2 DC heparin #3 days on the echo possible discharge later on today
[2021-12-20 08:28] VITALS: BP 107/70; PULSE 78; RESP 18
[2021-12-20] MEDS: METOPROLOL TARTRATE 50 MG TAB PO SCH (08:29)
[2021-12-20] MEDS: methylPREDNISolone 4 MG TAB TAPER PO SCH (08:29)
[2021-12-20] MEDS: EZETIMIBE 10 MG TAB PO SCH (08:29)
[2021-12-20] MEDS: ASPIRIN 325 MG TAB PO SCH (08:29)
[2021-12-20] MEDS: CLOPIDOGREL 75 MG TAB PO SCH (08:29)
--- NOTE | 2021-12-20 12:08 | P.DS ---
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 He presented on 12/16 the hospital and underwent PCI to the LAD and was discharged home on 12/18. He had recurrent chest pain and represented to the hospital. He had mildly elevated troponin at 0.2. His troponins were trended and remained flat. He was seen by cardiology. They recommended continuing IV heparin for his initial 24 hours and reassessing the patient in the morning. He underwent CT cervical and Thorasic spine which showed some spinal canal stenosis. He was started on a medrol dose lavelle. He continued to do well and was determined stable for discharge home. Imaging: CT cervical and thoracic spine-mild spondylitic changes at C5-C6 with mild osteophyte encroachment on the spinal canal. No fracture. Follow-up: Dr. Rooney in 1-[address] Forrester's as needed and pain continues. Take medications as prescribed. Follow-up with Dr. Gómez on 12/24. Patient seen and examined at bedside. Doing well, No recurrent chest pain, no nausea, no shortness of breath. Vital signs reviewed and stable. General: nontoxic, no distress, appears at stated age Derm: warm, dry Head: atraumatic, normocephalic, symmetric Eyes: EOMI, no lid lag, anicteric sclera Mouth: no lip lesion, mucus membranes moist Cardiovascular: S1S2 reg, no murmur, positive posterior tibial pulse bilateral, Lungs: Decrease bs bilateral, no rhonchi, no rales , no accessory muscle use Ext: no gross muscle atrophy, no edema, no contractures Neuro: CN II-XI grossly intact, no focal neuro deficits Psych: Alert, oriented, appropriate affect A total of 32 minutes of time were spent preparing this complex discharge summary. Patient was discharged on 12/20/21. Patient Condition at Discharge: Stable Plan - Discharge Summary New Discharge Prescriptions: New methylPREDNISolone Dose Pack [Medrol Dose Pack] 4 mg PO DIRECTED #21 tab Continue Atorvastatin [Lipitor] 80 mg PO HS Turmeric Root Extract [Turmeric] 500 mg PO DAILY Aspirin 81 mg PO DAILY #90 calcitrioL [Rocaltrol] 0.25 mcg PO [place] cap Nitroglycerin Sl Tabs [Nitrostat] 0.4 mg SL Q5M PRN PRN Reason: Chest Pain Metoprolol Tartrate [Lopressor] 50 mg PO DAILY Clopidogrel [Plavix] 75 mg PO DAILY #90 tab Ubidecarenone [Coenzyme Q10] 200 mg PO HS Ezetimibe [Zetia] 10 mg PO DAILY #90 tab Metoprolol Tartrate [Lopressor] 25 mg PO PC-SUPPER #0 Discharge Medication List Atorvastatin [Lipitor] 80 mg PO HS 05/17/16 [History] Turmeric Root Extract [Turmeric] 500 mg PO DAILY 05/17/16 [History] Aspirin 81 mg PO DAILY #90 08/22/16 [Rx] calcitrioL [Rocaltrol] 0.25 mcg PO K[place]ORE cap 08/22/16 [Rx] Nitroglycerin Sl Tabs [Nitrostat] 0.4 mg SL Q5M PRN 01/02/20 [History] Metoprolol Tartrate [Lopressor] 50 mg PO DAILY 12/16/21 [History] Ubidecarenone [Coenzyme Q10] 200 mg PO HS 12/16/21 [History] Clopidogrel [Plavix] 75 mg PO DAILY #90 tab 12/18/21 [Rx] Ezetimibe [Zetia] 10 mg PO DAILY #90 tab 12/18/21 [Rx] Metoprolol Tartrate [Lopressor] 25 mg PO PC-SUPPER #0 12/18/21 [Rx] methylPREDNISolone Dose Pack [Medrol Dose Pack] 4 mg PO DIRECTED #21 tab 12/20/21 [Rx] Follow up Appointment(s)/Referral(s): John Houston DO [Doctor of Osteopathic Medicine] - As Needed Dale Rooney DO [Primary Care Provider] - 1-2 days Felix Huber MD [STAFF PHYSICIAN] - 12/24/21 8:45 am Activity/Diet/Wound Care/Special Instructions: Activity: as tolerated Diet: Heart Healthy Special Instructions: You may benefit from physical therapy for your thorasic spine Take medrol dose lavelle as prescribed Return if recurrent chest pain Slowly increase your activity over the next 2 weeks. Discharge Disposition: HOME SELF-CARE
--- NOTE | 2021-12-21 10:13 | CA ---
Transthoracic Echo Report Name: Emmanuel Fitzpatrick Age: 71 Gender: M : 1950 Exam Date: 12/19/2021 09:57 Exam Location: [facility] Ht (in): 70 Wt (lb): 175 Ordering Physician: Marcello Mcdowell DO Attending/Referring Phys: [id number], Jeremias Press Offbearer Reyna Santoyo RDCS Procedure CPT: Indications: CP Cardiac Hx: Technical Quality: Fair Contrast 1: Total Dose (mL): Contrast 2: Total Dose (mL): MEASUREMENTS (Male / Female) Normal Values 2D ECHO LV Diastolic Diameter PLAX 4.5 cm 4.2 - 5.9 / 3.9 - 5.3 cm LV Systolic Diameter PLAX 2.3 cm IVS Diastolic Thickness 1.2 cm 0.6 - 1.0 / 0.6 - 0.9 cm LVPW Diastolic Thickness 1.3 cm 0.6 - 1.0 / 0.6 - 0.9 cm LV Relative Wall Thickness 0.5 FINDINGS Left Ventricle Mildly increased left ventricular wall thickness. No obvious regional wall motion abnormalities. Left ventricular ejection fraction is estimated at 50-55 %. Right Ventricle Right Atrium Left Atrium Mitral Valve Aortic Valve Tricuspid Valve Pulmonic Valve Pericardium No pericardial effusion. Aorta CONCLUSIONS Limited echocardiogram Normal left ventricular dimension and systolic function with no wall motion abnormalities No evidence of free cardiac effusion Previewed by: Dr. Clark Honeycutt MD (Electronically Signed) Final Date: 20 December 2021 08:13
== END 2021-12-20 13:21 | disposition home or self-care (01) | DRG 303 ==
LOC: EC 22:38 → 3SCARD 23:31
PROVIDERS: ADMIT Internal Medicine; ATTEND Internal Medicine
DX: I25.110 Atherosclerotic heart disease of native coronary artery with unstable angina pectoris (principal); E78.5 Hyperlipidemia, unspecified; I5A Non-ischemic myocardial injury (non-traumatic); I12.9 Hypertensive chronic kidney disease with stage 1 through stage 4 chronic kidney disease, or unspecified chronic kidney disease; M47.894 Other spondylosis, thoracic region; M47.892 Other spondylosis, cervical region; I25.2 Old myocardial infarction; M25.78 Osteophyte, vertebrae; M19.90 Unspecified osteoarthritis, unspecified site; M48.02 Spinal stenosis, cervical region; N18.30 Chronic kidney disease, stage 3 unspecified; Z79.82 Long term (current) use of aspirin; Z79.02 Long term (current) use of antithrombotics/antiplatelets; Z79.899 Other long term (current) drug therapy; Z87.891 Personal history of nicotine dependence; Z95.5 Presence of coronary angioplasty implant and graft
CPT/HCPCS: 36415; 71046; 72125; 72128; 80053; 80061; 83690; 83721; 83735; 83880; 84484; 85025; 85049; 85610; 85730; 93005; 93308; 96365; 96366; 96375; 99285

== ENCOUNTER 2021-12-28 05:51 | Day surgery (SDC) | payer MEDICARE ==
[2021-12-24 11:55] VITALS: BMI 25.1
[2021-12-28] MEDS ORDERED: ALPRAZolam 0.5 MG TAB PO PRN (05:58)
[2021-12-28] MEDS ORDERED: ASPIRIN 325 MG TAB PO STA (05:58)
[2021-12-28] MEDS ORDERED: NITROGLYCERIN SL TABS 0.4 MG TAB SUBLINGUAL PRN (05:58)
[2021-12-28] MEDS ORDERED: ALPRAZolam 0.25 MG TAB PO PRN (05:58)
[2021-12-28] MEDS: SODIUM CHLORIDE 0.9% 1,000 ML in EMPTY BAG 1 BAG IV SCH ×5 (06:24→22:58)
[2021-12-28] MEDS ORDERED: HEPARIN SODIUM 1,000 UN/ML (10ML VL) ONE (07:16)
[2021-12-28] MEDS ORDERED: MIDAZOLAM 2 MG/2 ML VIAL IV ONE (07:34)
[2021-12-28] MEDS ORDERED: LIDOCAINE 1% INJ 10MG/ML (30 ML VIAL-PF) SQ ONE (07:40)
[2021-12-28] MEDS: NITROGLYCERIN 1000MCG/10ML SYRINGE INTRACORON ONE ×2 (08:06→08:26)
[2021-12-28] MEDS: HEPARIN SODIUM 1,000 UN/ML (10ML VL) IV ONE ×2 (08:08→08:24)
[2021-12-28] MEDS ORDERED: IOPAMIDOL-370 100ML BTL INJ ONE ×2 (08:15→08:31)
[2021-12-28] MEDS ORDERED: CLOPIDOGREL 75 MG TAB ONE (08:33)
[2021-12-28] MEDS ORDERED: CLOPIDOGREL 75 MG TAB PO ONE (08:37)
[2021-12-28] MEDS: SODIUM CHLORIDE 0.9% 1,000 ML IV SCH ×2 (09:50→20:13)
--- NOTE | 2021-12-28 12:25 | PTCA ---
PERCUTANEOUSTRANS CORORONARY ANGIOGRAPHY DATE OF SERVICE: 12/28/2021. PROCEDURES PERFORMED: PTCA and stenting of PDA branch of dominant RCA with a drug-eluting stent next. PERFORMED BY: Dr. Heaven Huber. Moderate conscious sedation time was 53 minutes. Patient was administered Versed. Oxygen saturation, hemodynamics, and EKG were monitored closely. CLINICAL INFORMATION: Mr. Emmanuel Fitzpatrick is a 71-year-old gentleman with history of hypertension, hyperlipidemia, calcified coronary disease with previous PCI of LAD performed in 2017. About 10 days ago, he presented with unstable angina had a new lesion proximal to the previous LAD stent of about 80% to 90% and I deployed another drug-eluting stent with excellent result. However, he had a PDA lesion as well. PDA was not a very large branch that has moderate distribution. He presented to the hospital 2 times with chest pain and therefore I brought him back for a repeat cardiac cath to assess patency of LAD, then perform intervention of PDA of RCA. The patient had a calcified coronary arteries and radial access was rather difficult in 2017. PROCEDURE NOTE: Under local anesthesia and strict aseptic precautions, a 6-Taiwanese introducer was placed in right femoral artery. I used a diagnostic left JL4 catheter to perform selective coronary angiography of the left system and noted that the LAD that was stented was widely patent with excellent flow. There was another mid LAD lesion of about 40% to 50%, but there was good ENRRIQUE-3 flow. I then turned my attention to the RCA. Initially I tried to use a AL1 6-Taiwanese guide catheter, but the catheter seemed to be somewhat large and the catheter somewhat twisted and I had to retrieve the catheter with a wire. I then switched over to a 0.75 left Amplatz guide catheter and got good seating into the dominant RCA. I used a run-through wire and this wire was used to cross the lesion and the PDA wire was kept distally. There was a lot of tortuosity and calcification. I used a 2.25 caliber NC Trek balloon and pre-dilated the lesion. Subsequently, after getting additional guide support with the same catheter, I advanced a 2.25 caliber 12 mm long Xience stent and deployed this at 12 atmospheres. Patient did not have chest pain or new EKG changes. Excellent angiographic result was achieved. Patient received a total of 6500 units of heparin and ACT was 289. He also received 150 mg of Plavix. Excellent angiographic result without complication was achieved. The sheath was taken out and Angio-Seal device used to secure hemostasis. Results were discussed with the patient and and he was sent to the room in a stable condition with the understanding he will be discharged tomorrow if he remains stable. KERI / RICHARD: [id number] /
[2021-12-28] MEDS: METOPROLOL TARTRATE 25 MG TAB PO SCH ×2 (17:52→20:14)
[2021-12-28] MEDS ORDERED: ATORVASTATIN 80 MG TAB PO SCH (21:00)
[2021-12-28] MEDS ORDERED: NON FORMULARY DRUG (Ubidecarenone [Coenzyme Q10] 200 MG Capsule) PO SCH (21:00)
[2021-12-29] MEDS: SODIUM CHLORIDE 0.9% 1,000 ML in EMPTY BAG 1 BAG IV SCH ×2 (02:05→06:02)
[2021-12-29 03:10] VITALS: TEMP 97.9
[2021-12-29 08:34] VITALS: BP 113/71; PULSE 71; RESP 16
[2021-12-29] MEDS ORDERED: ASPIRIN 81 MG PO SCH (09:00)
[2021-12-29] MEDS ORDERED: CLOPIDOGREL 75 MG TAB PO SCH (09:00)
[2021-12-29] MEDS ORDERED: METOPROLOL TARTRATE 50 MG TAB PO SCH (09:00)
[2021-12-29] MEDS ORDERED: NON FORMULARY DRUG (Turmeric Root Extract [Turmeric] 500 MG Capsule) PO SCH (09:00)
[2021-12-29] MEDS ORDERED: EZETIMIBE 10 MG TAB PO SCH (09:00)
[2021-12-29 10:53] LABS: Basophils % (A) 1 %; Eosinophils # (A) 0.3 k/uL (0-0.7); Eosinophils % (A) 3 %; HGB 13.9 gm/dL (13.0-17.5); Lymphocytes # (A) 1.1 k/uL (1.0-4.8); Lymphocytes % (A) 14 %; MCH 30.8 pg (25.0-35.0); MCHC 33.2 g/dL (31.0-37.0); MCV 92.6 fL (80.0-100.0); Mean Platelet Volume 9.9; Monocytes # (A) 0.4 k/uL (0-1.0); Monocytes % (A) 6 %; Neutrophils # (A) 5.4 k/uL (1.3-7.7); Neutrophils % (A) 72 %; Platelet Count 214 k/uL (150-450); RBC 4.53 m/uL (4.30-5.90); WBC 7.5 k/uL (3.8-10.6)
--- NOTE | 2021-12-29 11:00 | DS ---
DISCHARGE SUMMARY DIAGNOSES: 1. Unstable angina. 2. Hypertension. 3. Hypercholesterolemia. PROCEDURES PERFORMED: PTCA and stenting of PDA branch of the dominant RCA with a drug-eluting stent. Check the patency of LAD that was stented 11 days ago. HOSPITAL COURSE: Mr. Fitzpatrick was brought into the hospital for elective PCI of the PDA branch of the dominant RCA. He also had a stenting of proximal/mid LAD performed about 10 to 11 days ago. Procedure was performed from the right femoral approach. The LAD that was stented was widely patent. I performed stenting of the PDA branch of RCA. Excellent angiographic result was achieved. Drug-eluting stent was deployed. Postprocedure course was uneventful. Labs are pending. EKG does not reveal any significant changes. The patient is asymptomatic. PHYSICAL EXAMINATION: VITAL SIGNS: Blood pressure is 130/70, pulse rate is 62 per minute. HEENT: Unremarkable. Fundus was not examined by me. NECK: Supple. No JVD. I do not hear a carotid bruit. HEART: Reveals S1, S2 with a 1/6 systolic murmur at the base. LUNGS: Clear. ABDOMEN: Soft, nontender. Right groin has a small area of tenderness, but no hematoma or bruit. Pulse is good. CENTRAL NERVOUS SYSTEM: Normal. The patient can be discharged today, and I will see him in the office on the of this month, Tuesday at 8:30 a.m. Discharge instructions regarding activity, diet, and medications were given. He will be continuing the same medications as he was doing before. KERI / MARISOLN: [id number] /
[2021-12-29 11:02] LABS: African American GFR (CKD) 65 (>60 ml/min/1.73 sqM); Anion Gap 3 mmol/L; Blood Urea Nitrogen 16 mg/dL (9-20); Calcium 8.6 mg/dL (8.4-10.2); Carbon Dioxide 28 mmol/L (22-30); Chloride 108 mmol/L (98-107); Glucose 67 mg/dL (74-99); Non-African American GFR(CKD) 57 (>60 ml/min/1.73 sqM); Potassium 4.2 mmol/L (3.5-5.1); Sodium 139 mmol/L (137-145)
== END 2021-12-29 11:45 | disposition home or self-care (01) ==
LOC: CATHCVL 05:51 → 6NMEDSUR 08:30 → CATHCVL 12-29 11:45
PROVIDERS: ATTEND Internal Medicine Interventional Cardiology
DX: I25.10 Atherosclerotic heart disease of native coronary artery without angina pectoris (principal); I10 Essential (primary) hypertension; E78.5 Hyperlipidemia, unspecified; F17.210 Nicotine dependence, cigarettes, uncomplicated
CPT/HCPCS: 80048; 85025; C1769 ×5; C9600; C1760; C1887 ×2; C1894 ×2; C1874; C1725; J2250; J2001; J1644; Q9967

== ENCOUNTER → 2022-11-03 | Outpatient (CLI) | payer OTHER ==
[2022-11-03 11:10] LABS: Appearance,Urine Clear (Clear); Bilirubin,Urine Negative (Negative); Blood,Urine Negative (Negative); Color,Urine Colorless; Glucose,Urine (UA) Negative (Negative); Ketones,Urine Negative (Negative); Leukocyte Esterase,Urine Negative (Negative); Nitrite,Urine Negative (Negative); Protein,Urine Negative (Negative); Specific Gravity,Urine 1.005 (1.001-1.035); Urobilinogen,Urine <2.0 mg/dL (<2.0)
[2022-11-03 16:34] LABS: Basophils # (A) 0.04 X 10*3/uL (0.00-0.10); Basophils % (A) 0.6 %; Eosinophils % (A) 4.3 %; HCT 47.5 % (39.6-50.0); HGB 15.5 d/dL (13.0-17.0); Lymphocytes # (A) 1.71 X 10*3/uL (0.90-5.00); Lymphocytes % (A) 24.7 %; MCH 30.1 pg (27.0-32.0); MCHC 32.6 d/dL (32.0-37.0); MCV 92.2 FL (80.0-97.0); Mean Platelet Volume 11.6 FL (9.5-12.2); Monocytes # (A) 0.65 X 10*3/uL (0.20-1.00); Monocytes % (A) 9.4 %; NRBC Per 100 WBC 0 X 10*3/uL (0.00-0.01); Neutrophils # (A) 4.19 X 10*3/uL (1.80-7.70); Neutrophils % (A) 60.7 %; Platelet Count 206 X 10*3/uL (140-440); RBC 5.15 X 10*6/uL (4.40-5.60); RDW 13.6 % (11.5-14.5); WBC 6.91 X 10*3/uL (4.50-10.00)
[2022-11-03 16:39] LABS: % Iron Saturation 27.62 (15.00-50.00); ALT 30 U/L (10-49); AST 34 U/L (14-35); Albumin 4.5 d/dL (3.8-4.9); Albumin/Globulin Ratio 1.88 Ratio (1.60-3.17); Alkaline Phosphatase 63 U/L (41-126); Blood Urea Nitrogen 23.1 mg/dL (9.0-27.0); Calcium 9.6 mg/dL (8.7-10.3); Carbon Dioxide 25.2 mmol/L (21.6-31.8); Chloride 106 mmol/L (96-109); Globulin 2.4 d/dL (1.6-3.3); Glucose 92 mg/dL (70-110); Iron 95 UG/DL (65-175); Magnesium 2.1 mg/dL (1.5-2.4); Phosphorus 3.2 mg/dL (2.4-5.1); Potassium 4.7 mmol/L (3.5-5.5); Sodium 141 mmol/L (135-145); Total Bilirubin 0.4 mg/dL (0.3-1.2); Total Iron Binding Capacity 344 UG/DL (228-460); Total Protein 6.9 d/dL (6.2-8.2); Uric Acid 7.4 mg/dL (3.7-8.7)
== END | disposition home or self-care (01) ==
LOC: LABWHC1 09:42
PROVIDERS: ATTEND Nurse Practitioner Family
DX: N25.81 Secondary hyperparathyroidism of renal origin (principal); N18.31 Chronic kidney disease, stage 3a; D63.1 Anemia in chronic kidney disease; M10.9 Gout, unspecified; N39.0 Urinary tract infection, site not specified; R80.9 Proteinuria, unspecified
CPT/HCPCS: 36415; 80053; 81003; 82306; 82728; 83540; 83550; 83735; 83970; 84100; 84550; 85025

== ENCOUNTER → 2023-06-06 | Outpatient (CLI) | payer OTHER ==
--- NOTE | 2023-06-06 09:39 | US ---
EXAMINATION TYPE: US kidneys/renal and bladder DATE OF EXAM: 06/06/2023 COMPARISON: US 06/05/2020 CLINICAL INDICATION: Male, 72 years old with history of N18.31 CHRONIC KIDNEY DISEASE, STAGE 3A; CKD stage 3A EXAM MEASUREMENTS: Right Kidney: 10.7 x 5.6 x 4.9 cm Left Kidney: 11.2 x 5.9 x 5.4 cm Right Kidney: Lobular contour. Renal pelvis is dilated- scanned post void as well. Left Kidney: Lobular contour. Renal pelvis is dilated- scanned post void as well. Bladder: Appears wnl Bilateral Jets seen: Not visualized IMPRESSION: 1. Extrarenal pelves versus mild hydronephrosis bilaterally.
== END | disposition home or self-care (01) ==
LOC: RADUSWWP 08:59
PROVIDERS: ATTEND Internal Medicine Nephrology
DX: N18.31 Chronic kidney disease, stage 3a (principal)
CPT/HCPCS: 76770

== ENCOUNTER → 2024-06-05 | Outpatient (CLI) | payer OTHER ==
--- NOTE | 2024-06-05 09:43 | XR ---
EXAMINATION TYPE: XR lumbosacral spine min 4V DATE OF EXAM: 06/05/2024 9:31 AM INDICATION: Patient age:Male; 73 years old; Reason for study: [id number] IDD; [facility]. pain COMPARISON: None TECHNIQUE: Frontal, lateral , bilateral oblique and coned in L5-S1 lateral views of the spine. FINDINGS: There are 5 lumbar type vertebral bodies identified. No evidence of any acute osseous patho logy. No evidence of loss of vertebral body height is seen. There is normal alignment of the lumbar vertebral bodies. Multilevel disc space narrowing with endplate sclerosis and anterior osteophytosis. Bilateral facet arthropathy at L5-S1 with bilateral neural foraminal stenosis. Atherosclerotic calci fication of the aorta. IMPRESSION: 1. No acute process. 2. Mild to moderate multilevel degenerative disc disease and facet arthropathy. [facility], , 06/05/2024 9:41 AM
== END | disposition home or self-care (01) ==
LOC: RADXRYALE 09:15
PROVIDERS: ATTEND Physician Assistant Medical
DX: M51.362 Other intervertebral disc degeneration, lumbar region with discogenic back pain and lower extremity pain (principal); M47.816 Spondylosis without myelopathy or radiculopathy, lumbar region
CPT/HCPCS: 72110